=== PATIENT | female | born 1945 | race Caucasian/White ===

== ENCOUNTER → 2018-03-21 12:47 | Outpatient (CLI) | payer MEDICARE, OTHER, SELFPAY ==
--- NOTE | 2018-03-21 12:51 | VDLE_ITS ---
Reason For Study: PEDAL EDEMA L>R RIGHT LEFT GSV is normal. GSV is normal CFV is compressible, spontaneous, phasic, CFV and SFJ are dilated and partially competent and demonstrates normal compressible. augmentation. FV, POP V & T/P trunk are dilated and FV is compressible, spontaneous, phasic, noncompressible. competent and demonstrates normal PTV appears compressible. augmentation. PERV not seen due to edema. POP V is compressible, spontaneous, phasic, competent and demonstrates normal augmentation. T/P Trunk is compressible. PTV is compressible. RT PerV is compressible. Procedure Exam performed in department. The study was technically difficult. A preliminary report was called and/or faxed to Called Dr. Farias's office @ 1:45 pm Ludy, PT to have STAT CTA. Interpretation Summary Acute deep vein thrombosis is noted in the left common femoral vein. Acute deep vein thrombosis is noted in the left femoral vein. Acute deep vein thrombosis is noted in the left popliteal vein. Acute deep vein thrombosis is noted in the left tibio-peroneal trunk. The left posterior tibial vein is patent and compressible. The left peroneal vein was not visualized. Deep veins of the right lower extremity are patent and compressible segmentally. There is no evidence of right lower extremity deep vein thrombosis. Valvular competence appears intact within the proximal deep venous system on the right . The greater saphenous veins appear bilaterally patent and compressible segmentally. Ordering Physician: Sinan Farias Referring Physician: Fausto Noble Performed By: Edel Miranda RDCS, RVT
--- NOTE | 2018-03-21 14:35 | CT_ITS ---
STUDY: CTA CHEST REASON FOR EXAM: Female, 73 years old. Dyspnea. RADIATION DOSAGE (If Supplied By Facility): CTDIvol = ( 16.52 ) mGy, DLP = ( 616.09 ) mGycm TECHNIQUE: The examination was performed with the intravenous administration of 100 ml of Isovue 370 contrast material. Post-processing of the angiographic images was performed, with multiplanar reformation and 3D reconstruction. Individualized dose optimization techniques were used for this CT. COMPARISON: None. FINDINGS: Normal enhancement of the main pulmonary artery and right and left pulmonary arteries. Normal enhancement of the bilateral peripheral pulmonary arteries. There is no demonstrated pulmonary embolism. There is atherosclerotic calcification of the aortic arch with tortuosity. There is no demonstrated aortic dissection. There are mitral valvular calcifications. Normal mediastinum. There are calcified left hilar lymph nodes. Normal visualized trachea and bronchi. The lungs are well expanded. No focal infiltrate. Left lower lung granuloma. Normal pleura. Normal chest wall structures. There are degenerative changes of thoracic spine. Normal visualized upper abdomen. CT/CTA Chest W/WO Contrast IMPRESSION: Normal CTA chest examination, without a demonstrated pulmonary embolism or arterial dissection. Electronically Signed: Chetan Negro MD at 15:25 EDT , Service support ,
[2018-03-21 14:56] LABS: CREATININE FINGERSTICK 0.9 mg/dL (0.55-1.02)
== END ==
PROVIDERS: Family Provider Physician Assistant; PCP Physician Assistant; Referring Provider Internal Medicine Pulmonary Disease; Visit Provider Internal Medicine Pulmonary Disease
DX: R06.00 Dyspnea, unspecified (principal); R60.0 Localized edema; I82.402 Acute embolism and thrombosis of unspecified deep veins of left lower extremity
CPT/HCPCS: 71275; 93970; Q9967

== ENCOUNTER → 2018-04-22 09:36 | Outpatient (CLI) | payer MEDICARE, OTHER, SELFPAY ==
[2018-04-22 11:04] LABS: Absolute Lymphocyte Count 0.94 X10^3/ul (0.83-4.51); Absolute Neutrophil Count 3.3 X10^3/uL (2.0-7.7); Basophil# 0.03 X10^3/uL; Basophil% 0.6 % (0-1); Eosinophils% 2.1 % (0-5); Hematocrit 41.9 % (37-47); Hemoglobin 13.2 g/dl (12.0-15.0); Lymphocyte # 0.94 X10^3/ul (4.0); Lymphocyte % 19.7 % (19-41); Mean Corp Hgb Conc 31.5 g/gl (32-36); Mean Corpuscular Hgb 28.8 pg (27.0-32.0); Mean Corpuscular Volume 91.3 fL (81-99); Monocyte% 8.4 % (0-10); Neutrophil # 3.29 X10^3/uL (2.7-7.7); POSITIVE COUNT NO; POSITIVE DIFFERENTIAL NO; POSITIVE MORPHOLOGY NO; Platelet Count 217 K/mm3 (150-450); RBC Distribution Width CV 14.3 % (11.6-14.6); RBC Distribution Width SD 47.9 fl (35.1-43.9); Red Blood Count 4.59 M/mm3 (4.2-5.4); White Blood Count 4.8 K/mm3 (4.4-11.0)
[2018-04-22 11:34] LABS: AST(SGOT) 18 U/L (15-37); Alanine Aminotransfer ALT/SGPT 21 U/L (13-56); Albumin, Serum 3.5 g/dL (3.2-5.0); Alkaline Phosphatase 74 U/L (45-117); Anion Gap 6 (5-15); BUN 26 mg/dL (7-18); BUN/Creat Ratio 21.3 RATIO (10-20); Bilirubin, Direct 0.13 mg/dL (0.00-0.30); Calcium,Total 9.3 mg/dL (8.5-10.1); Chloride 105 mmol/L (98-107); Cholesterol 200 mg/dL (200); Creatinine, Serum 1.22 mg/dL (0.55-1.02); EST Glomerular Filtration Rate 46 mL/min (>60); Est Glom Filt Rate - Afr Amer 56 mL/min (>60); Globulin 4.2 g/dL (2.2-4.2); Glucose 85 mg/dL (74-106); High Density Lipoprotein 71 mg/dL; Magnesium 2.3 mg/dL (1.6-2.6); Potassium 4.4 mmol/L (3.5-5.1); Protein, Total 7.7 g/dL (6.4-8.2); Sodium Level 141 mmol/L (136-145); T4 Total, Thyroxin 9.8 ug/dL (4.8-13.9); Thyroid Stim Hormone (TSH) 4.21 uIU/mL (0.358-3.74); Triglycerides 99 mg/dL; Very Low Density Lipoprotein 20 mg/dL (5-40)
== END ==
PROVIDERS: Family Provider Physician Assistant; PCP Physician Assistant; Referring Provider Internal Medicine Cardiovascular Disease; Visit Provider Internal Medicine Cardiovascular Disease
DX: R06.09 Other forms of dyspnea (principal); I51.9 Heart disease, unspecified; I10 Essential (primary) hypertension; M79.89 Other specified soft tissue disorders; I82.402 Acute embolism and thrombosis of unspecified deep veins of left lower extremity
CPT/HCPCS: 36415; 80048; 80061; 80076; 83735; 84436; 84443; 85025

== ENCOUNTER → 2018-04-28 12:25 | Outpatient (CLI) | payer MEDICARE, OTHER, SELFPAY ==
--- NOTE | 2018-04-28 12:27 | STEWCON_ITS ---
Reason For Study: CABRERA Stress Results Protocol: Modified Shoaib Protocol Maximum Predicted HR: 148 bpm Target HR: 126 bpm % Maximum Predicted HR: 93 % DurationHeart Rate Stage (mm:ss) (bpm) BP Comment Baseline 74 158/82Diluted Definity 2 ML Given; No Chest Pain Modified Shoaib Protocol Stage 0 3:00 127 184/86No Chest Pain; Mild Dyspnea Modified Shoaib Protocol Stage 1/2 3:00 137 204/80No Chest Pain; Moderate Dyspnea Recovery 94 146/76No Chest Pain Stress Duration: 6:00 mm:ss Maximum Stress HR: 137 bpm METS: 3 Baseline Echocardiogram Findings The estimated ejection fraction is 665 %. Stress Echo Wall motion Data Resting WM Intermediate WM Stress WM Resting Wall Motion Wall Motion Stress No regional wall motion No regional wall motion abnormalities noted. abnormalities noted. EKG Data Normal intervals are noted. During stress, there were no ST or T wave changes noted to suggest ischemia. No clinical angina was noted. Interpretation Summary The study was technically difficult. Contrast injection was performed. The estimated ejection fraction is 665 %. Abnormal adequate modified Shoaib treadmill echocardiogram. Positive for ischemia by echocardiographic criteria. Patient developed what appeared to be mid anterior hypo-kinesis seen in 3 views. No anginal symptoms noted. Patient developed right dependent intraventricular conduction delay during exercise. No arrhythmias noted. Appropriate blood pressure response to exercise. Below average exercise capacity for age. Final LVEF of 60%. Patient referred for diagnostic coronary angiogram. No complications. Ordering Physician: Dutch Kern Referring Physician: Dutch Kern Performed By: Sharri Chabmers, JAD, RVT
[2018-04-28 14:36] LABS: Hematocrit 43.6 % (37-47); Hemoglobin 14.1 g/dl (12.0-15.0); Mean Corp Hgb Conc 32.3 g/gl (32-36); Mean Corpuscular Hgb 29.2 pg (27.0-32.0); Mean Corpuscular Volume 90.3 fL (81-99); Mean Platelet Vol. 10.3 fl (6.2-12.0); Platelet Count 224 K/mm3 (150-450); RBC Distribution Width SD 46.2 fl (35.1-43.9); Red Blood Count 4.83 M/mm3 (4.2-5.4); White Blood Count 4.8 K/mm3 (4.4-11.0)
[2018-04-28 14:38] LABS: Scan Indicated on CBC? Y/N NO
[2018-04-28 14:42] LABS: International Normalized Ratio 1.2; Partial Thromboplast Time 29.2 Seconds (24.1-36.2)
[2018-04-28 14:59] LABS: Anion Gap 7 (5-15); BUN 28 mg/dL (7-18); BUN/Creat Ratio 27.5 RATIO (10-20); Calcium,Total 9.7 mg/dL (8.5-10.1); Chloride 102 mmol/L (98-107); Creatinine, Serum 1.02 mg/dL (0.55-1.02); EST Glomerular Filtration Rate 57 mL/min (>60); Est Glom Filt Rate - Afr Amer 69 mL/min (>60); Glucose 94 mg/dL (74-106); Potassium 3.8 mmol/L (3.5-5.1); Sodium Level 139 mmol/L (136-145)
== END ==
PROVIDERS: Family Provider Physician Assistant; PCP Physician Assistant; Referring Provider Internal Medicine Cardiovascular Disease; Visit Provider Internal Medicine Cardiovascular Disease
DX: R94.39 Abnormal result of other cardiovascular function study (principal); R06.09 Other forms of dyspnea; I10 Essential (primary) hypertension; M79.89 Other specified soft tissue disorders
CPT/HCPCS: 36415; 80048; 85027; 85610; 85730; 93017; 93350; Q9957; A4216; C8928

== ENCOUNTER 2018-05-13 06:52 | Day surgery (SDC) | payer MEDICARE, OTHER, SELFPAY ==
[2018-05-04 10:04] VITALS: BMI 47.9
[2018-05-12 07:33] VITALS: BMI 48.3
--- NOTE | 2018-05-13 09:29 | CL.D_ITS ---
Patient Name: CHELSEY MCGEE Study Date: 05/13/2018 Performing: Dutch Kern MD Ht: 61.02 inches 155 cm : 1945 Wt: 255.74 lbs 116 kg Age: 73 Gender: female BSA: 2.1 PROCEDURE(S) PERFORMED [id number]/LHC/COR/LV CLINICAL PROFILE AND INDICATIONS Indications: Suspected CAD Heart Failure: None Stress/Imaging Stress Echocardiogram: Yes Result: IndeterminantStress Echocardiogram: Indetermina nt Angina Classification Anginal Classification w/in 2 Weeks: CCS III CAD Presentations: Unstable angina. Comorbidities/Risk Factors: Hypertension Dyslipidemia Chronic Lung Disease CONCLUSIONS Normal coronary arteries Normal LV size, wall motion,and systolic function Cardiac output - Preserved The patient has normal pulmonary hemodynamics. 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 Refer for Outpatient Cardiac Rehab Restart lovenox on 05/15/18 until 05/18/18, then restart eliquis on 05/18/18. D/c brilinta. Manual sheath removal. DESCRIPTION OF PROCEDURE The patient arrived to the procedure lab. The risks and benefits of the procedure as well as a full d escription of our services here and current unavailability of surgical backup were fully explained to the patient and/or their significant other prior to the catheterization. The Timeout was completed, verifying the correct patient and procedure. The patient's procedural site was prepped and draped in the usual fashion. Local anesthetic was given subcutaneously to right groin region with Lidocaine 2%. Using a modified Seldinger technique, arterial access was obtained via the right femoral artery, a 4 Fr sheath was inserted Venous access was obtained via the right femoral vein, a 7Fr sheath was insert ed. A 7Fr thermal dilution catheter was inserted and right heart pressures were recorded, it was then advanced to PA position for cardiac outputs. Thermal dilution cardiac outputs were then recorded. O2 saturations were then obtained. Left Ventriculography was performed in CASILLAS projection using a 4 Fr. Pigtail catheter. LV to AO pullback pressures were then recorded. Simultaneous pressure s were then recorded. The Thermal dilution catheter was then removed. Right Coronary Artery selective angiography was then performed in multiple views using a 4 Fr. 3DRC catheter. Left Coronary Artery s elective angiography was performed in multiple views using a 4 Fr. AL 2 catheter.The arterial sheath was pulled and manual compression applied until hemostasis is achieved. CORONARY ANGIOGRAPHY DOMINANCE: Right Dominant LEFT HEART ASSESSMENT Left Ventricular Ejection Fraction: by LV Gram 75 % Normal LV wall motion Normal Left Ventricular systolic function LVEDP: 13 mmHg Left Ventricular Hypertrophy RIGHT HEART ASSESSMENT Thermal CO: 5.9 Thermal CI: 2.81 PW: 03/24 8 PA: 27/3 15 RV: 33/0 9 RA: 01/17 5 PVR: 95 SVR: 1193 Right Heart pressures - normal LEFT MAIN: Angiographically normal, LM comes off of right coronary cusp and may traverse between aort a and pulmonary artery. LEFT ANTERIOR DECENDING ARTERY: Angiographically normal CIRCUMFLEX ARTERY: Angiographically normal RIGHT CORONARY ARTERY: Angiographically normal COMPLICATIONS No Complications PROCEDURE MEDICATIONS Versed 1 mg IV Baby Aspirin (81mg) 81 Tabs PO 05/13/2018 08:25:47 Brilinta 180 mg PO @ 05/13/2018 08:31:13 SUMMARY OF HEMODYNAMIC DATA Time AIR REST ECG 07:15:39 RA 01/17 (5) SV 08:46:51 RV 33/0, 9 08:47:01 PW 03/24 (8) PV 08:47:24 PA 27/3 (15) PA 08:47:32 LV 135/-18, 6 08:52:05 LV 134/-18, 6 08:52:12 LV 137/-18, 6 08:52:33 PW 03/27 (9) 08:52:33 LV 137/-20, 5 08:52:39 PW 02/21 (7) 08:52:39 LV 141/-18, 8 08:54:00 RV 32/1, 10 08:54:00 LV 138/-20, 6 08:54:06 RV 30/-1, 7 08:54:06 LV 141/-13, 14 08:55:25 LV 142/-15, 11 08:55:31 LVp 139/-15, 14 08:55:36 AOp 139/56 (88) 08:55:41 AO 120/64 (93) SA 08:57:30 Type SV CO (l/m) CI (l/m/ HR Time AIR REST Thermal 88.10 5.90 2.81 67 07:15:39 Label % O2 Pres/Loc Time AIR REST AO 96 PV 09:00:34 Signed By Dutch Kern MD On 05/13/2018 09:28:16 Dutch Kern MD
[2018-05-13 11:36] LABS: Base Excess 2 mmol/L (-2 to +2); Bicarbonate 27.2 mmol/L (22-26); Blood Gas Specimen Type ART; PO2 84 mmHG (75-100); SO2 96 % (95-99); Total Carbon Dioxide 28 mmol/L; pCO2 43.4 mmHg (35-45); pH 7.41 (7.35-7.45)
[2018-05-13 11:36] LABS: Blood Gas Specimen Type VEN; VBG BASE EXCESS 6 mmol/L (-1.0-3.5); VBG Bicarbonate 30 mmol/L (22-26); VBG Oxygen Content 31 mmol/L (23-33); VBG PO2 40 mmHg (25-40); VBG SO2 78 % (50-70); VBG pCO2 41.4 mmHg (41-51); VBG pH 7.47 (7.32-7.42)
[2018-05-13 11:36] LABS: Blood Gas Specimen Type VEN; VBG BASE EXCESS 6 mmol/L (-1.0-3.5); VBG Bicarbonate 30 mmol/L (22-26); VBG Oxygen Content 32 mmol/L (23-33); VBG PO2 35 mmHg (25-40); VBG SO2 69 % (50-70); VBG pCO2 45.2 mmHg (41-51); VBG pH 7.43 (7.32-7.42)
--- OUTSIDE RECORDS SUMMARY | 2018-07-08 01:04 | XMS RPT_ITS ---
:1945 Author Organization OHIP Support Name Relationship Address Phone FIGLEY, SANGEETHA Unavailable [address] + [place] [address] R Unavailable Unavailable Unavailable FIGLEY, SANGEETHA Unavailable [address] + [place] [address] R Unavailable Unavailable Unavailable FIGLEY, SANGEETHA Unavailable [address] + [place] [address] R Unavailable Unavailable Unavailable FIGLEY, SANGEETHA Unavailable [address] + [place] [address] R Unavailable Unavailable Unavailable FIGLEY, SANGEETHA Unavailable [address] + [place] [address] R Unavailable Unavailable Unavailable FIGLEY, SANGEETHA Unavailable [address] + [place] [address] R Unavailable Unavailable Unavailable FIGLEY, SANGEETHA Unavailable [address] + [place] [address] R Unavailable Unavailable Unavailable FIGLEY, SANGEETHA Unavailable [address] + [place] [address] R Unavailable Unavailable Unavailable FIGLEY, SANGEETHA Unavailable [address] + [place] [address] R Unavailable Unavailable Unavailable FIGLEY, SANGEETHA Unavailable [address] + [place] [address] R Unavailable Unavailable Unavailable Care Team Providers Name Role Phone FAUSTO NOBLE Referring Unavailable RASHAWN STEELE Referring Unavailable FAUSTO NOBLE Referring Unavailable Dutch Kern Attending Unavailable Dutch Kern Referring Unavailable Fausto Noble Primary Care Unavailable Dutch Kern Consulting Unavailable Sinan Fraias Attending Unavailable Sinan Farias Referring Unavailable Fausto Noble Primary Care Unavailable Dutch Kern Attending Unavailable Fausto Noble Referring Unavailable Ducth Kern Attending Unavailable Dutch Kern Referring Unavailable Galehouse, Fausto Primary Care Unavailable Dutch Kern Attending Unavailable Dutch eKrn Referring Unavailable Galehouse, Fausto Primary Care Unavailable Dutch Kern Attending Unavailable [place]alehouse, Fausto Referring Unavailable Crhista Alfaro Attending Unavailable [place]alehouse, Fausto Referring Unavailable Dutch Kern Attending Unavailable Dutch Kern Referring Unavailable Galehouse, Fausto Primary Care Unavailable Angelina, Christa Allan Attending Unavailable [place]alehouse, Fausto Referring Unavailable Dutch Kern Attending Unavailable Dutch Kern Referring Unavailable Galehouse, Fausto Primary Care Unavailable PROBLEMS PROBLEMS DATE TYPE CONDITION / CODE ATTENDING STATUS SOURCE 05/25/2018 Unknown 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 Community / Q24.5(ICD-10) Hospital Repository 04/28/2018 Unknown R06.09 - Other forms Dutch Kern Active [place] of dyspnea / Community R06.09(ICD-10) Hospital Repository 04/28/2018 Unknown R94.39 - Abnormal Kern Dutch Active [place] result of other [facility] cardiovascular Hospital function study / Repository R94.39(ICD-10) 04/19/2018 Unknown R60.0 - Localized Dutch Kern Active [place] edema / Community R60.0(ICD-10) Hospital Repository 04/19/2018 Unknown I10 - Essential KernDutch Active [place] (primary) Community hypertension / Hospital I10(ICD-10) Repository 04/19/2018 Unknown I51.9 - Heart Dutch Kern Active [place] disease, unspecified Community / I51.9(ICD-10) Hospital Repository 04/19/2018 Unknown M79.89 - Other KenrDutch Active [place] specified soft Community tissue disorders / Hospital M79.89(ICD-10) Repository 04/19/2018 Unknown I82.402 - Acute Kern Dutch Active [place] embolism and Community thrombosis of Hospital unspecified deep Repository veins of left lower extremity / I82.402(ICD-10) 02/15/2018 Active Edema, unspecified / NA Active [facility] R60.9(ICD-10) Clinic Other [place] Repository 02/15/2018 Active Essential (primary) NA Active [facility] hypertension / Clinic Other I10(ICD-10) [place] Repository 02/15/2018 Active Hypothyroidism, NA Active [facility] unspecified / Clinic Other E03.9(ICD-10) [place] Repository 01/20/2018 Active Unknown / NA Active [place] UNK(Unknown) [facility] Main [place] Repository PROCEDURES PROCEDURES No Procedure Records FoundRESULTS RESULTS LIMITED CHEST CT Observed: 05/20/2018 Status: F Source: [place] W/CCTA 2:02 PM REPOSITORY [facility] Imaging Services [address] [place] [address] w/CCTA MR#: [id number] Acct: [id number] Name: CHELSEY MCGEE Rep #: [id number] : 1945 F 73 From: Codey Caro MD PCP: Fausto Noble Status: REG CLI Study: Limited Chest CT w/CCTA Date of Exam: 05/20/18 Exam# [id number] Ordering Dr: Dutch Kern MD STUDY: CT CHEST WITHOUT CONTRAST REASON FOR EXAM: Female, 73 years old. 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 RADIATION DOSAGE (If Supplied By Facility): CTDIvol = ( 16.91 ) mGy, DLP = ( 1112.32 ) mGycm TECHNIQUE: Transaxial imaging was performed without the administration of intravenous contrast material. This is a cardiac over read examination. Individualized dose optimization techniques were used for this CT. COMPARISON: None. FINDINGS: Calcified granuloma in the left lower lobe. There is no demonstrated pleural abnormality. Mild calcification of the mitral valve annulus. Normal mediastinum. Calcification of the left hilar lymph nodes. Normal unenhanced pulmonary arteries. There is atherosclerotic calcification of the aortic arch with tortuosity and elongation of the aortic arch and descending thoracic aorta. Normal osseous structures. There is no demonstrated abnormality of the visualized upper abdomen. CT/Limited Chest CT w/CCTA IMPRESSION: Calcified granuloma in the left lower lobe as well as calcification of the left hilar lymph nodes. Electronically Signed: Codey Caro MD at 8:56 EST Tel [phone], Service support , CC: Fausto Noble; Dutch Kern MD Insurance And Benefits Clerk: Signed CCTA W/CONT CORONARY Observed: 05/20/2018 Status: F Source: [place] ARTERIES 1:50 PM [facility] REPOSITORY [facility] Imaging Services [address] [place] [address] CCTA W/CONT Coronary Arteries MR#: [id number] Acct: [id number] Name: CHELSEY MCGEE Rep #: [id number] : 1945 F 73 From: Codey Caro MD PCP: Fausto Noble Status: REG CLI Study: CCTA W/CONT Coronary Arteries Date of Exam: 05/20/18 Exam# [id number] Ordering Dr: Dutch Kern MD STUDY: CT CHEST WITHOUT CONTRAST REASON FOR EXAM: Female, 73 years old. 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 RADIATION DOSAGE (If Supplied By Facility): CTDIvol = ( 16.91 ) mGy, DLP = ( 1112.32 ) mGycm TECHNIQUE: Transaxial imaging was performed without the administration of intravenous contrast material. This is a cardiac over read examination. Individualized dose optimization techniques were used for this CT. COMPARISON: None. FINDINGS: Calcified granuloma in the left lower lobe. There is no demonstrated pleural abnormality. Mild calcification of the mitral valve annulus. Normal mediastinum. Calcification of the left hilar lymph nodes. Normal unenhanced pulmonary arteries. There is atherosclerotic calcification of the aortic arch with tortuosity and elongation of the aortic arch and descending thoracic aorta. Normal osseous structures. There is no demonstrated abnormality of the visualized upper abdomen. CT/CCTA W/CONT Coronary Arteries IMPRESSION: Calcified granuloma in the left lower lobe as well as calcification of the left hilar lymph nodes. Electronically Signed: Codey Caro MD at 8:56 EST Tel [phone], Service support , CC: Fausto Noble; Dutch Kern MD Insurance And Benefits Clerk: Signed CARDIOLOGY VISIT Observed: 05/16/2018 Status: F Source: [place] REPORT 1:17 PM REPOSITORY [facility] [address] [place] [address] OFFICE VISIT Date of Service: 05/16/18 MR#: [id number] Acct: [id number] Name: CHELSEY MCGEE Rep #: [id number] : 1945 Provider: Christa Alfaro Age/Sex: 73/F Location: [facility] Status: Signed HPI HPI Chief Complaint: Dyspnea on exertion Details: CHELSEY MCGEE, is a 73 F who presents to the office today for concerns regarding medications and her hematoma from her heart cath. She recently established with us for increased shortness of breath that started in January 2018. She also has a history of uncontrolled hypertension. For her shortness of breath she did undergo a stress echocardiogram which is abnormal. Heart cath demonstrated Normal coronary arteries, normal LV size, wall motion,and systolic function. The patient has normal pulmonary hemodynamics. Right heart pressures - Normal. 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 She is scheduled for a CTA this Wednesday. Patient's blood pressure is slightly better than it was previously. She does however complain now of feeling her hearing her heartbeat in her ears. She notes it more in her left ear than her right. She states that this is more so when she is laying down. She also notes that she has a cough. This is not constant. She questions if this is related to her Coreg. She does not have any chest discomfort or heaviness. She does continue to have shortness of breath with exertion. She does continue to have lower extremity edema. She does not have any palpitations that she is aware of. She does not have any lightheadedness or dizziness Intake Vital Signs05/16/18 Body Mass Index (BMI) 47.9 05/16/18 Height 5 ft 1 in 05/16/18 Weight: 261 lb 05/16/18 Body Mass Index (BMI) 49.3 05/16/18 Blood Pressure 138/58 H Intake Visit Reasons: LARGE HEMATOMA [employer] Supervisor Required: No Accompanied by: None Is patient in pain?: No Allergies Sulfa (Sulfonamide Antibiotics) Allergy (Verified 05/16/18 10:38) Rash tramadol HCl [From Ultram] Allergy (Verified 05/16/18 10:38) Hives olmesartan Adverse Reaction (Severe, Verified 05/16/18 10:38) sob, lightheaded budesonide [From Symbicort] Adverse Reaction (Intermediate, Verified 05/16/18 10:38) affected eyesight (pt has glaucoma) formoterol [From Symbicort] Adverse Reaction (Intermediate, Verified 05/16/18 10:38) affected eyesight (pt has glaucoma) Medications Calcium 500 mg Chewable Tablet 1,000 mg PO DAILY 01/07/16 [History Confirmed 05/16/18] Fish Oil/Borage/Flax/Om3,6,9#1 [Bly 3-6-9 1,200 mg Softgel] 2,400 mg PO DAILY 01/07/16 [History Confirmed 05/16/18] Timolol 0.5% [Timoptic] 1 drp EACH EYE BID 01/07/16 [History Confirmed 05/16/18] allopurinol 100 mg tablet 100 mg PO BID 04/13/18 [History Confirmed 05/16/18] furosemide 40 mg tablet 40 mg PO DAILY 04/13/18 [History Confirmed 05/16/18] nystatin 100,000 unit/gram topical cream 1 applic TOPICAL .COMPLEX 04/13/18 [History Confirmed 05/16/18] carvedilol 3.125 mg tablet 3.125 mg PO BID #60 tab 04/19/18 [Rx Confirmed 05/16/18] vitamin A-vitamin C-vit E-min capsule 1 cap PO DAILY cap 04/19/18 [History Confirmed 05/16/18] apixaban 5 mg tablet 5 mg PO .COMPLEX 04/28/18 [History Confirmed 05/16/18] Aspirin 1 tab PO QODAY 05/13/18 [History Confirmed 05/16/18] levothyroxine 112 mcg tablet 112 mcg PO DAILY 05/16/18 [History Confirmed 05/16/18] losartan 50 mg tablet 50 mg PO DAILY 05/16/18 [History Confirmed 05/16/18] Ejection fraction %: 60 to 64 PENDING SALE TO [facility] Medical History Left leg DVT (Acute 03/2018) Dyspnea on minimal exertion (Acute) Gout (Chronic) Glaucoma (Chronic) Iatrogenic hypothyroidism (Chronic) Diastolic dysfunction (Acute) Hypertension (Chronic) History of thyroid cancer (Chronic) Arthritis (Chronic) Morbid obesity (Chronic) Edema of both legs (Chronic) Lymphedema of leg (Chronic) Degenerative joint disease (Chronic) Surgical History Status post right and left heart catheterization (Resolved) History of bilateral knee replacement (Chronic) History of bilateral oophorectomies (Chronic) History of cholecystectomy (Chronic) History of hysterectomy (Chronic) History of total thyroidectomy (Chronic) Family History Mother CAD (coronary artery disease) Hypertension Daughter Cancer Sister Hypertension Sister Hypertension Social History Smoking Status: Never smoker second hand exposure: Yes alcohol intake: never caffeine: Yes (hot chocolate) Type: other Number of servings: 1 ROS Const Const: Negative for fatigue, weakness, body ache, fever(s), headache(s), chills, frequent falls, night sweats, daytime sleepiness, difficulty sleeping, excessive sweating, weight gain, weight loss, increased appetite, poor appetite, anorexia or other Eyes Eyes: Negative for blind spots, loss of peripheral vision, transient loss of vision, blurry vision, change in vision, double vision, floaters, tunnel vision or other ENT ENT: Negative for headache(s) or balance problems Cardio Chest Pain: No Palpitations: No Edema: Bilateral Resp Respiratory: Positive for SOB with activity and SOB at rest (with humidity); negative for SOB orthopnea\SOB lying down, Coughing up blood/hemoptysis, chest congestion, pain on inspiration, snoring, stridor, wheezing, crackles, paroxysmal nocturnal dyspnea or other GI GI: Negative nausea, vomiting, heartburn, constipation, belching, bloating, cramping, vomiting blood/hematemesis, bright, red blood in stools, black,tarry stools, loose stools, Difficulty Swallowing or other : Negative for hematuria, frequent nighttime urination/ nocturia, erectile dysfunction or abnormal vaginal bleeding Musc Musc: Positive for muscle aches/ myalgia, muscle weakness and joint pain; negative for balance problems Skin Skin: Negative redness, non-healing lesions, rash, unusual bruising, skin ulcer, wounds, jaundice or other Neuro Neuro: Negative for weakness, headache(s), frequent falls, blurry vision or double vision [place] Hematologic/Lymphatic: Negative for easy bleeding, easy bruising, enlarged lymph nodes or other Endo Endo: Negative for fatigue or excessive sweating Psych Psych: Negative for anxiety, depression, thoughts of harming anyone, thoughts of harming yourself, visual hallucinations, panic attacks or audible hallucinations Allergy Allergy/Immunology: Negative for rash Cardiology Exam Const Appearance: cooperative, healthy appearing and no acute distress Nutritional Appearance: well nourished Orientation: alert, oriented x3 and oriented to person Head Head: normal to inspection, atraumatic and normocephalic Nose: external nose normal Face and Sinus: face symmetric Mouth: oral mucosae normal Eyes General: appearance normal, both eyes and all related structures Eyelids: eyelids normal Conjunctivae: conjunctivae normal Pupils: PERRL and normal by confrontation EOM: EOM intact bilaterally Neck Neck: normal visual inspection and full ROM Carotids: normal carotid upstroke Chest Chest inspection: normal inspection of the chest Auscultation: Bilateral: Clear to Auscultation Cardio Palpation: normal PMI Rate: regular rate Rhythm: regular rhythm Heart sounds: S1 normal and S2 normal GI GI: normal to inspection, no hepatosplenomegaly and bowel sounds present Neuro General: alert, oriented x3, awake, CN's II-XI intact bilaterally and moves all extremities Skin Skin: no rashes or lesions noted Extremities Pulses: Normal: Right Femoral Pulse, Left Femoral Pulse (large ecchymosis noted, no bruit), Right Dorsalis Pedis Pulse, Left Dorsalis Pedis Pulse, Right Posterior Tibial Pulse, Left Posterior Tibial Pulse, Right Radial Pulse, Left Radial Pulse Lower Extremity Edema: +2: Bilateral Psych Psychological: normal affect Supplemental Info Stress echo in 04/2018 demonstrated: The study was technically difficult. Contrast injection was performed. The estimated ejection fraction is 65 %. Abnormal adequate modified Shoaib treadmill echocardiogram. Positive for ischemia by echocardiographic criteria. Patient developed what appeared to be mid anterior hypo-kinesis seen in 3 views. No anginal symptoms noted. Patient developed right dependent intraventricular conduction delay during exercise. No arrhythmias noted. Appropriate blood pressure response to exercise. Below average exercise capacity for age. Final LVEF of 60%. Patient referred for diagnostic coronary angiogram. No complications. Heart cath in 04/2018 demonstrated: Normal coronary arteries Normal LV size, wall motion,and systolic function Cardiac output - Preserved The patient has normal pulmonary hemodynamics. 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 Assessment AND Plan 1. Essential hypertension I10 Plan In regards to patient's blood pressure readings. They are better controlled on her current medications. Hesitant to decrease her losartan at this time. Will have patient continue to monitor. Patient does have a significant amount of wax in her left ear. I explained that this may be contributing to her hearing her heartbeat in that ear. Encouraged her to follow-up with her primary care doctor for this. We will readdress this at her next office visit. 2. Abnormal result of cardiovascular function study R94.30 Plan Patient is scheduled to undergo a CTA on Wednesday. For now she will continue with her current medications. If she is still concerned about her medications will adjust after her CTA. Plan Detail Additional Comments Thank you for allowing us to participate in the patients plan of care, if you have any questions please do not hesitate to call. This note was generated using a voice recognition system and there may be incorrect words, spelling or punctuation that were not noted when reviewing the office note prior to saving. She was advised that she should not lift anything greater than 10 pounds until after tomorrow. Her hematoma from her heart cath is healing well. Follow Up 05/16/18 (keep as is) Coding Level of Care Code Off vis,est,level 3 Diagnoses Essential hypertension I10 Hypertension type: essential hypertension Abnormal result of cardiovascular function study R94.30 Coding Level of Care Code Off vis,est,level 3 Diagnoses Essential hypertension I10 Hypertension type: essential hypertension Abnormal result of cardiovascular function study R94.30 05/16/18 1317 <Electronically signed by Christa SONG> Date Christa SONG Cosigner Signature: Date (if applicable) CC: Fausto Noble BLOOD GASES BY [facility] Collected: 05/13/2018 Status: F Source: [place] 8:59 AM REPOSITORY TYPE CODE TESTS RESULT OUT OF RANGE REFERENCE UNITS LAB L9000.9990 Normal BLD GAS ART TYPE LAB L9001.1110 7.35-7.45 Normal pH - 7.41 I-STAT LAB L9001.1210 35-45 mmHg Normal pCO2 - 43.4 ISTAT LAB L9001.1310 75-100 mmHG Normal PO2 84 I-STAT LAB L9001.2300 22-26 mmol/L High HCO3 27.2 ISTAT LAB L9001.2400 -2 to +2 mmol/L Normal BE ISTAT 2 LAB L9001.2415 mmol/L Normal TOTAL CO2 28 ISTAT LAB L9001.2425 95-99 % Normal SO2 ISTAT 96 Performed By: #### L9000.0800 #### [facility] Point of Care [address] [place], [place] [id number] VENOUS BLOOD GAS Collected: 05/13/2018 Status: F Source: [place] 8:56 AM REPOSITORY TYPE CODE TESTS RESULT OUT OF RANGE REFERENCE UNITS LAB L9000.9990 Normal BLD GAS IZ TYPE LAB L9002.1110 7.32-7.42 High VBGpH - 7.47 I-STAT LAB L9002.1212 41-51 mmHg Normal VBG pCO2 41.4 - ISTA LAB L9002.1310 25-40 mmHg Normal VBG PO2 40 I-STAT LAB L9002.2300 22-26 mmol/L High VBG HCO3 30 ISTAT LAB L9002.2400 -1.0-3.5 mmol/L High VBG BE 6 ISTAT LAB L9002.2410 50-70 % High VBG SO2 78 ISTAT LAB L9002.2415 23-33 mmol/L Normal VBG O2 CT 31 ISTAT Performed By: #### L9000.0810 #### [facility] Point of Care [address] [place], [place] [id number] VENOUS BLOOD GAS Collected: 05/13/2018 Status: F Source: [place] 8:53 AM REPOSITORY TYPE CODE TESTS RESULT OUT OF RANGE REFERENCE UNITS LAB L9000.9990 Normal BLD GAS ZI TYPE LAB L9002.1110 7.32-7.42 High VBGpH - 7.43 I-STAT LAB L9002.1212 41-51 mmHg Normal VBG pCO2 45.2 - ISTA LAB L9002.1310 25-40 mmHg Normal VBG PO2 35 I-STAT LAB L9002.2300 22-26 mmol/L High VBG HCO3 30 ISTAT LAB L9002.2400 -1.0-3.5 mmol/L High VBG BE 6 ISTAT LAB L9002.2410 50-70 % Normal VBG SO2 69 ISTAT LAB L9002.2415 23-33 mmol/L Normal VBG O2 CT 32 ISTAT Performed By: #### L9000.0810 #### [facility] Point of Care [address] [place] [address] CARDIOLOGY VISIT Observed: 05/04/2018 Status: F Source: [place] REPORT 10:43 AM REPOSITORY [facility] [address] [place] [address] OFFICE VISIT Date of Service: 05/04/18 MR#: [id number] Acct: [id number] Name: CHELSEY MCGEE Rep #: [id number] : 1945 Provider: Christa Alfaro Age/Sex: 73/F Location: [facility] Status: Signed HPI HPI Chief Complaint: Dyspnea on exertion Details: CHELSEY MCGEE, is a 73 F who presents to the office today for a blood pressure follow-up. She recently established with us for increased shortness of breath that started in January 2018. She also has a history of uncontrolled hypertension. For her shortness of breath she did undergo a stress echocardiogram which is abnormal. She is scheduled to undergo a right and left heart catheterization next week. Patient's blood pressure is still less than ideal. She is aware of this. She does monitor this closely. She does not have any chest discomfort. She does continue to have shortness of breath with exertion. She does not have any orthopnea. She does not have any palpitations. She does have chronic lower extremity edema. The lower extremity edema and her left leg is new as she was recently diagnosed with a DVT. She has not had any lightheadedness, dizziness or syncopal episodes. Intake Vital Signs05/04/18 Height 5 ft 1 in 05/04/18 Weight: 254 lb 05/04/18 Body Mass Index (BMI) 47.9 05/04/18 Blood Pressure 146/78 H 05/04/18 Blood Pressure Location Lt brachial Intake Visit Reasons: 2 WK BP CK PER DJN [employer] Supervisor Required: No Accompanied by: none Is patient in pain?: No Allergies Sulfa (Sulfonamide Antibiotics) Allergy (Verified 05/04/18 10:04) Rash tramadol HCl [From Ultram] Allergy (Verified 05/04/18 10:04) Hives olmesartan Adverse Reaction (Severe, Verified 05/04/18 10:04) sob, lightheaded budesonide [From Symbicort] Adverse Reaction (Intermediate, Verified 05/04/18 10:04) affected eyesight (pt has glaucoma) formoterol [From Symbicort] Adverse Reaction (Intermediate, Verified 05/04/18 10:04) affected eyesight (pt has glaucoma) Medications Calcium 500 mg Chewable Tablet 1,000 mg PO DAILY 01/07/16 [History Confirmed 05/04/18] Fish Oil/Borage/Flax/Om3,6,9#1 [Bly 3-6-9 1,200 mg Softgel] 2,400 mg PO DAILY 01/07/16 [History Confirmed 05/04/18] Timolol 0.5% [Timoptic] 1 drp EACH EYE BID 01/07/16 [History Confirmed 05/04/18] albuterol sulfate HFA 90 mcg/actuation aerosol inhaler 2 puff INHALATION Q6H PRN 04/13/18 [History Confirmed 05/04/18] allopurinol 100 mg tablet 100 mg PO BID 04/13/18 [History Confirmed 05/04/18] furosemide 40 mg tablet 40 mg PO DAILY 04/13/18 [History Confirmed 05/04/18] levothyroxine 100 mcg tablet 100 mcg PO DAILY 04/13/18 [History Confirmed 05/04/18] nystatin 100,000 unit/gram topical cream 1 applic TOPICAL .COMPLEX 04/13/18 [History Confirmed 05/04/18] carvedilol 3.125 mg tablet 3.125 mg PO BID #60 tab 04/19/18 [Rx Confirmed 05/04/18] vitamin A-vitamin C-vit E-min capsule cap PO cap 04/19/18 [History Confirmed 05/04/18] apixaban 5 mg tablet 5 mg PO .COMPLEX 04/28/18 [History Confirmed 05/04/18] enoxaparin 100 mg/mL subcutaneous syringe 100 mg SC .COMPLEX #10 ml 04/28/18 [Rx Confirmed 05/04/18] losartan 50 mg tablet 50 mg PO DAILY #30 tab 05/04/18 [Rx Confirmed 05/04/18] PENDING SALE TO [facility] Medical History Left leg DVT (Acute 03/2018) Dyspnea on minimal exertion (Acute) Gout (Chronic) Glaucoma (Chronic) Iatrogenic hypothyroidism (Chronic) Diastolic dysfunction (Acute) Hypertension (Chronic) History of thyroid cancer (Chronic) Arthritis (Chronic) Morbid obesity (Chronic) Edema of both legs (Chronic) Lymphedema of leg (Chronic) Degenerative joint disease (Chronic) Surgical History History of bilateral knee replacement (Chronic) History of bilateral oophorectomies (Chronic) History of cholecystectomy (Chronic) History of hysterectomy (Chronic) History of total thyroidectomy (Chronic) ROS Const Const: Negative for fatigue, weakness, body ache, fever(s), headache(s), chills, frequent falls, night sweats, daytime sleepiness, difficulty sleeping, excessive sweating, weight gain, weight loss, increased appetite, poor appetite, anorexia or other Eyes Eyes: Negative for blind spots, loss of peripheral vision, transient loss of vision, blurry vision, change in vision, double vision, floaters, tunnel vision or other ENT ENT: Negative for headache(s) or balance problems Cardio Chest Pain: No Palpitations: No Edema: Bilateral Resp Respiratory: Positive for SOB with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 anxiety, depression, thoughts of harming anyone, thoughts of harming yourself, visual hallucinations, panic attacks or audible hallucinations Allergy Allergy/Immunology: Negative for lip swelling, Negative for tongue swelling, Negative for rash, Negative for throat swelling, Negative for hives Cardiology Exam Const Appearance: cooperative, healthy appearing and no acute distress Nutritional Appearance: well nourished Orientation: alert, oriented x3 and oriented to person Head Head: normal to inspection, atraumatic and normocephalic Nose: external nose normal Face and Sinus: face symmetric Mouth: oral mucosae normal Eyes General: appearance normal, both eyes and all related structures Eyelids: eyelids normal Conjunctivae: conjunctivae normal Pupils: PERRL and normal by confrontation EOM: EOM intact bilaterally Neck Neck: normal visual inspection and full ROM Carotids: normal carotid upstroke Chest Chest inspection: normal inspection of the chest Auscultation: Bilateral: Clear to Auscultation Cardio Palpation: normal PMI Rate: regular rate Rhythm: regular rhythm Heart sounds: S1 normal and S2 normal GI GI: normal to inspection, no hepatosplenomegaly and bowel sounds present Neuro General: alert, oriented x3, awake, CN's II-XI intact bilaterally and moves all extremities Skin Skin: no rashes or lesions noted Extremities Pulses: Normal: Right Femoral Pulse, Left Femoral Pulse, Right Dorsalis Pedis Pulse, Left Dorsalis Pedis Pulse, Right Posterior Tibial Pulse, Left Posterior Tibial Pulse, Right Radial Pulse, Left Radial Pulse Lower Extremity Edema: None: Bilateral Psych Psychological: normal affect Assessment AND Plan 1. Dyspnea on minimal exertion R06.09 Plan 1. Dyspnea on exertion: The patient has her main complaint is dyspnea on exertion and worsening lower extremity edema and decreased energy level ever since December 2017. Her dyspnea on exertion may be an anginal equivalent and may also represent underappreciated pulmonary hypertension. I recommended the patient undergo a modified Shoaib treadmill echocardiogram to determine her exercise capacity, or size endurance, blood pressure response to exercise, as well as for ischemia. If this is grossly abnormal, I have a low threshold for a left and right heart catheterization. In addition she will start on baby aspirin 81 mg p.o. daily. Her CTA was negative for pulmonary embolism in March 2018. In addition I recommended discontinuation of atenolol given her bradycardia as well as initiating Coreg 3.125 mill grams p.o. twice daily. We will use the alpha blocking component for additional hypertension control, but if the patient continues to have fatigue and shortness of breath she may benefit from calcium channel benoit therapy. In addition I recommend she undergo a fasting profile, CBC, BMP, TSH and T4 as well as a magnesium level. We will continue Lasix 40 mg p.o. daily for her lower extremity edema with respect to her DVT. Should the patient require catheterization she will need to stop her Eliquis about 5 days prior to her procedure. Orders Orders: 2. Hypertension I10 Plan 2. Hypertension: Recommend switching her from atenolol to Coreg 3.125 mill grams p.o. twice daily. Repeat blood pressure check in 2 weeks time. 3. Return office in 6 months. This note was generated using a voice recognition system and there may be incorrect words, spelling or punctuation that were not noted when reviewing the office note prior to saving. Orders Orders: Plan Detail Other Orders Orders: Other Medications New: Discontinued: Follow Up +6M (Erlin) Coding Level of Care Code Off vis,new,level 4 Diagnoses Dyspnea on minimal exertion R06.09 Hypertension I10 Coding Level of Care Code Off vis,new,level 4 Diagnoses Dyspnea on minimal exertion R06.09 Hypertension I10 04/19/18 1144 <Electronically signed by Dutch Kern MD> Date Dutch Kern MD Cosigner Signature: Date (if applicable) CC: Fausto Noble; Sinan Farias MD 12 LEAD EKG PERFORMED Observed: 04/19/2018 Status: F Source: [facility] BY [facility] 11:08 AM REPOSITORY [facility] [address] [place] [address] 12 Lead EKG performed by [facility] 04/19/18 1107 MR#: [id number] Acct: [id number] Name: CHELSEY MCGEE Rep #: [id number] : 1945 73 From: Dutch Kern MD Attending Dr: Dutch Kern MD Status: DEP [facility] Ordering Dr: Dutch Kern MD Date: 04/19/18 Location: BMS.[facility] Sex: F C Admitted: BMS/12 Lead EKG performed by BMS ECG Report Interpretation Marked sinus Bradycardia Voltage criteria for LVH (R(I)+S(III) exceeds 2.50 mV) - Nonspecific QRS widening. Possible early repolarization -Old anterior infarct. -Nonspecific ST depression -Seen with left ventricular hypertrophy (strain) or digitalis effect. ABNORMAL Electronically signed on 05/27/2018 at 15:54 by Dutch Kern Software Version [id number] 05/27/18 1556 Date Dutch Kern MD CC: Fausto SONG [employer] Date Dictated: 04/19/181106 Date Transcribed: 04/19/181106 Insurance And Benefits Clerk: Signed VENOUS DUPLEX LOWER Observed: 03/21/2018 Status: F Source: [place] EXTREMITY 9:20 PM REPOSITORY [facility] Cardiovascular Services [address] [place] [address] Venous Duplex - Pérez Extrem 03/21/18 1255 MR#: [id number] Acct: [id number] Name: CHELSEY MCGEE Rep #: [id number] : 1945 73 From: Lauri Hinds MD Attending Dr: Sinan Farias MD Status: REG CLI Ordering Dr: Sinan Farias MD Date: 03/21/18 Location: CVS Sex: F C Admitted: Reason For Study: PEDAL EDEMA L>R RIGHT LEFT GSV is normal. GSV is normal CFV is compressible, spontaneous, phasic, CFV and SFJ are dilated and partially competent and demonstrates normal compressible. augmentation. FV, POP V AND T/P trunk are dilated and FV is compressible, spontaneous, phasic, noncompressible. competent and demonstrates normal PTV appears compressible. augmentation. PERV not seen due to edema. POP V is compressible, spontaneous, phasic, competent and demonstrates normal augmentation. T/P Trunk is compressible. PTV is compressible. RT PerV is compressible. Procedure Exam performed in department. The study was technically difficult. A preliminary report was called and/or faxed to Called Dr. Farias's office @ 1:45 pm Ludy, PT to have STAT CTA. Interpretation Summary Acute deep vein thrombosis is noted in the left common femoral vein. Acute deep vein thrombosis is noted in the left femoral vein. Acute deep vein thrombosis is noted in the left popliteal vein. Acute deep vein thrombosis is noted in the left tibio-peroneal trunk. The left posterior tibial vein is patent and compressible. The left peroneal vein was not visualized. Deep veins of the right lower extremity are patent and compressible segmentally. There is no evidence of right lower extremity deep vein thrombosis. Valvular competence appears intact within the proximal deep venous system on the right . The greater saphenous veins appear bilaterally patent and compressible segmentally. Ordering Physician: Sinan Farias Referring Physician: Fausto Noble Performed By: Edel Miranda, JAD, RVT 03/21/182119 Date Lauri Hinds MD CC: Fausto Noble; Sinan Farias MD Date Dictated: 03/21/18 1255 Date Transcribed: 03/21/182119 Insurance And Benefits Clerk: Signed CREATININE FINGERSTICK Collected: 03/21/2018 Status: F Source: [place] 2:51 PM REPOSITORY TYPE CODE TESTS RESULT OUT OF RANGE REFERENCE UNITS LAB L9100.0210 0.55-1.02 mg/dL Normal CREATININE WB 0.9 Performed By: #### L9100.0200 #### [facility] Laboratory Point of Care [address] [place] [address] CTA CHEST W/WO Observed: 03/21/2018 Status: F Source: [place] CONTRAST 2:35 PM REPOSITORY [facility] Imaging Services [address] [place] [address] CTA Chest W/WO Contrast MR#: [id number] Acct: [id number] Name: CHELSEY MCGEE Rep #: [id number] : 1945 F 73 From: Chetan Negro MD PCP: Fausto Noble Status: REG CLI Study: CTA Chest W/WO Contrast Date of Exam: 03/21/18 Exam# [id number] Ordering Dr: Sinan Farias MD STUDY: CTA CHEST REASON FOR EXAM: Female, 73 years old. Dyspnea. RADIATION DOSAGE (If Supplied By Facility): CTDIvol = ( 16.52 ) mGy, DLP = ( 616.09 ) mGycm TECHNIQUE: The examination was performed with the intravenous administration of 100 ml of Isovue 370 contrast material. Post-processing of the angiographic images was performed, with multiplanar reformation and 3D reconstruction. Individualized dose optimization techniques were used for this CT. COMPARISON: None. FINDINGS: Normal enhancement of the main pulmonary artery and right and left pulmonary arteries. Normal enhancement of the bilateral peripheral pulmonary arteries. There is no demonstrated pulmonary embolism. There is atherosclerotic calcification of the aortic arch with tortuosity. There is no demonstrated aortic dissection. There are mitral valvular calcifications. Normal mediastinum. There are calcified left hilar lymph nodes. Normal visualized trachea and bronchi. The lungs are well expanded. No focal infiltrate. Left lower lung granuloma. Normal pleura. Normal chest wall structures. There are degenerative changes of thoracic spine. Normal visualized upper abdomen. CT/CTA Chest W/WO Contrast IMPRESSION: Normal CTA chest examination, without a demonstrated pulmonary embolism or arterial dissection. Electronically Signed: Chetan Negro MD at 15:25 EDT , Service support , CC: Fausto Noble; Sinan Farias MD Insurance And Benefits Clerk: Signed XR CHEST 2V FRONTAL/LAT Observed: 02/15/2018 Status: F Source: [place] 10:32 AM [facility] REPOSITORY * * *Final Report* * * DATE OF EXAM: Feb 15 2018 10:32AM MDX 5291 - XR CHEST 2V FRONTAL/LAT / PROCEDURE REASON: edema, hypertension, hypothyroidism * * * * Physician Interpretation * * * * EXAMINATION: CHEST RADIOGRAPH (2 VIEW FRONTAL and LATERAL) CLINICAL HISTORY: Edema. Hypertension. MQ: XC2_5 Comparison: None. RESULT: Lines, tubes, and devices: None. Lungs and pleura: There is calcified residual of prior granulomatous infection with a calcified left lower lobe granuloma. There is mild elevation of the left hemidiaphragm of unknown chronicity. Could be chronic and on the basis of eventration. Mild diffuse interstitial prominence is thought to be chronic. There is no focal consolidation or acute pleural process. There is no overt pulmonary edema. Cardiomediastinal silhouette: Normal cardiomediastinal silhouette allowing for scoliotic curvature and mild rotation.. Other: The bony structures appear intact. IMPRESSION: No acute radiographic abnormality. Chronic interstitial lung changes and OGD. Insurance And Benefits Clerk: CLARISSE Transcribe Date/Time: Feb 15 2018 11:49A Dictated by : REED STRICKLAND MD This examination was interpreted and the report reviewed and electronically signed by: REED STRICKLAND MD on Feb 15 2018 11:52AM EST [id number] CNCO Observed: 01/20/2018 Status: COMPLETED Source: [place] 10:04 AM [facility] REPOSITORY HNO ID: [id number] Author: Mammography Coordinator Service: (none) Author Type: Physician Type: Letter Filed: 01/24/2018 11:31 PM Note Text: January 20, 2018 PID: [id number] Chelsey Mcgee [address] [place] [address] Dear Ms. Mcgee, We are pleased to inform you that the results of your recent breast imaging exam on 01/20/2018 are normal. Early detection of cancer is very important. We also understand recommendations regarding breast cancer screening are controversial. Please discuss with your primary care provider which strategy is best for you and whether a mammogram is right for you. Your imaging studies and report will be kept on file at [facility] as part of your permanent medical record and are available for your continuing care. Thank you for allowing us to help in meeting your health care needs. Sincerely, Dr. Lizarraga Interpreting Radiologist [facility] (Normal over 40) [facility] SCREENING Observed: 01/20/2018 Status: F Source: [place] 9:53 AM [facility] REPOSITORY * * *Final Report* * * DATE OF EXAM: Jan 20 2018 9:53AM WOW 0581 - [facility] SCREENING / PROCEDURE REASON: ROUTINE SCREENING * * * * Physician Interpretation * * * * RESULT: #[id number] - [facility] SCREENING BILATERAL DIGITAL SCREENING MAMMOGRAM WITH CAD: 01/20/2018 HISTORY: Routine Screening\ Screening Mammogram - patient reports NO breast symptoms /patient reports no breast symptoms /priors available for comparison. RESULT: TECHNIQUE: The study was acquired using full field digital technology and interpreted from soft copy. Current study was also evaluated with a Computer Aided Detection (CAD). Comparison is made to exams dated: 01/13/2017 mammogram, 01/02/2016 mammogram - [facility], 07/22/2013 mammogram - [facility], 03/06/2013 mammogram - [facility], 02/09/2012 mammogram - [facility], and 06/02/2011 mammogram - [facility]. There are scattered fibroglandular elements in both breasts. No significant masses, calcifications, or other findings are seen in either breast. There has been no significant interval change. IMPRESSION: NEGATIVE There is no mammographic evidence of malignancy. A 1 year screening mammogram is recommended. The exam was reviewed by a staff physician. bekah Hodgson M.D./arash:01/20/2018 10:04:27 Software Engineer Mobile: Maribel GARCIA(Emil)(Sanjana), [facility] letter sent: Normal over 40 Mammogram BI-RADS: 1 Negative Insurance And Benefits Clerk: Arash Transcribe Date/Time: Jan 20 2018 9:56A Dictated by: FELIPE YOO MD This examination was interpreted and the report reviewed and electronically signed by: MARTIN LIZARRAGA MD on Jan 20 2018 10:04AM EST [id number] ALLERGIES ALLERGIES DATE TYPE / NAME / CODE REACTION SEVERITY SOURCE CODE 05/25/2018 Drug carvedilol/O62452 I hear my heart [place] Allergy/41 4167(RXNORM) pounding in my Community 0102548( ears Hospital OMED CT) Repository 05/16/2018 Drug tramadol Hives Unknown [place] Allergy/41 HCl/O571099916(RX Community 7779650( NORM) Hospital OMED CT) Repository 05/16/2018 Drug Sulfa Rash Unknown [place] Allergy/41 (Sulfonamide Community 4491513( Antibiotics)/F[address]) 231389(RXNORM) Repository 05/16/2018 Drug budesonide/H77629 affected eyesight [place] Allergy/41 4214(RXNORM) (pt has glaucoma) Community 8865910([facility] OMED CT) Repository 05/16/2018 Drug formoterol/I58957 affected eyesight [place] Allergy/41 5421(RXNORM) (pt has glaucoma) Community 7220534([facility] CT) Repository 05/16/2018 Drug olmesartan/P52193 sob, lightheaded [place] Allergy/41 9634(RXNORM) Community 3171859([facility] OMED CT) Repository 04/08/2010 [facility] [place] 2039700( Repository OMED CT) 04/08/2010 DRUG TRAMADOL HCL [facility] [place] 6650968([facility] OMED CT) 12/22/2005 Drug SULFA INTOLERANCE [facility] Class/4195 (SULFONAMIDE Other [place] [address]([facility] ANT[facility]OT[facility]) Repository ED CT) ENCOUNTERS ENCOUNTERS ADMIT/DISCHARGE ACCOUNT ADMITTING ENCOUNTER LOCATION SOURCE NUMBER CLASS 05/25/2018 [id number] Ambulatory BMSBuilding:B [place] MS.CF.[facility] Repository 05/20/2018 [id number] Ambulatory [place] [facility] ing:CT Repository 05/16/2018/05/16/20 [id number] Ambulatory BMSBuilding:B [place] 18 MS.[facility] Repository 05/13/2018/05/13/20 [id number] Ambulatory [address] ing:CLSP Repository 05/04/2018/05/04/20 [id number] Ambulatory BMSBuilding:B [place] 18 MS.[facility] Repository 04/28/2018/04/28/20 [id number] Ambulatory BMSBuilding:B [place] 18 MS.[facility] Repository 04/28/2018 [id number] Ambulatory [facility] ing:[facility] Repository 04/22/2018 [id number] Ambulatory [facility] ing:LAB Repository 04/19/2018/04/19/20 [id number] Ambulatory BMSBuilding:B [place] 18 MS.[facility] Repository 03/21/2018 [id number] Ambulatory [facility] ing:CVS Repository 02/22/2018/02/23/20 [id number] Ambulatory [address] Repository 02/15/2018 [id number] Ambulatory [facility] Other [place] Repository 01/20/2018/01/21/20 [id number] Ambulatory [address] Repository PAYERS PAYERS ENCOUNTER GUARANTOR PAYER SUBSCRIBER SOURCE 05/25/2018 CHELSEY F Primary CHELSEY F [place] [id number] Insurance:MEDICARE WILLIAMSDOB: [facility] PART A [facility] [id number] Number: Repository [address]Svy: (772) [id number] [phone] () Date:2018-05-13 05/25/2018 Secondary CHELSEY F [place] [facility] Pending [facility] to [facility] [id number] Hospital Number: Repository [id number] Date:6669-90-75[address], [place] [address]IA: 05/25/2018 Tertiary NOT GIVENUNK [place] Insurance:SELF PAY Community [facility] Number: Effective Repository Date:2018-05-25 05/20/2018 CHELSEY F Primary CHELSEY F [place] [id number] Insurance:MEDICARE WILLIAMSDOB: [facility] PART A [id number] Number: Repository [address]Gea: 330 [id number] [phone] (HP) Date:2018-05-13 05/20/2018 Secondary CHELSEY F [place] Insurance:[facility]: [facility] CARE [address] [place], [place] [id number] Hospital Number: Repository [id number] Date:[id number] [address]KG: 05/20/2018 Tertiary NOT GIVENUNK [place] Insurance:SELF PAY [facility] Number: Effective Repository Date:2018-05-13 05/16/2018 CHELSEY F Primary CHELSEY F [place] [id number] Insurance:MEDICARE WILLIAMSDOB: [facility] PART A [facility] [id number] Number: Repository [id number]: 330 [id number] [phone] () Date:2018-05-16 05/16/2018 Secondary CHELSEY F [place] Insurance:[facility]: [place] [id number] Hospital Number: Repository [id number] Date:[id number] [address]KU: 05/16/2018 Tertiary NOT GIVENUNK [place] Insurance:SELF PAY [facility] Number: Effective Repository Date:2018-05-16 05/13/2018 CHELSEY F Primary CHELSEY F [place] [id number] Insurance:MEDICARE WILLIAMSDOB: [facility] PART A [place] [id number] Number: Repository [address]Auz: 330 [id number] [phone] (HP) Date:2018-04-28 05/13/2018 Secondary CHELSEY F [place] Insurance:[facility]: [facility] CARE [address] [place] [address] [id number] Hospital Number: Repository [id number] Date:6680-33-27[id number] [place] [address]ZO: 05/13/2018 Tertiary NOT GIVENUNK [place] Insurance:SELF PAY [facility]: Effective Repository Date:2018-04-28 05/04/2018 CHELSEY F Primary CHELSEY F [place] [id number] Insurance:MEDICARE WILLIAMSDOB: [facility] PART A [facility] [id number] Number: Repository [address]Ikr: 330 [id number] [phone] () Date:2018-04-19 05/04/2018 Secondary CHELSEY F [place] Insurance:[facility]: [facility] CARE [id number] Hospital Number: Repository [id number] Date:0509-16-45[id number] [place] [address]YM: 05/04/2018 Tertiary NOT GIVENUNK [place] Insurance:SELF PAY [facility] Number: Effective Repository Date:2018-05-04 04/28/2018 CHELSEY F Primary CHELSEY F [place] [id number] Insurance:MEDICARE WILLIAMSDOB: [facility] PART A [facility] [id number] Number: Repository [address]Lzb: 330 [id number] [phone] () Date:2018-04-28 04/28/2018 Secondary CHELSEY F [place] Insurance:[facility]: [facility] CARE [address] [place] [address] [id number] Hospital Number: Repository [id number] Date:2217-28-32[address], [place] [address]LY: 04/28/2018 Tertiary NOT GIVENUNK [place] Insurance:SELF PAY [facility] Number: Effective Repository Date:2018-04-28 04/28/2018 CHELSEY F Primary CHELSEY F [place] [id number] Insurance:MEDICARE LINKWOODDOB: [facility] PART A [facility] [id number] Number: Repository [address]Huy: 330 [id number] [phone] (HP) Date:2018-04-19 04/28/2018 Secondary CHELSEY F [place] [facility]: [facility] CARE [address] [place] [address] [id number] Hospital Number: Repository [id number] Date:3848-57-22OL [id number] [place] [address]FX: 04/28/2018 Tertiary NOT GIVENUNK [place] Insurance:SELF PAY [facility] Number: Effective Repository Date:2018-04-19 04/22/2018 CHELSEY F Primary CHELSEY F [place] [id number] Insurance:MEDICARE WILLIAMSDOB: [facility] PART A [facility] [id number] Number: Repository [address]Znd: 330 [id number] [phone] () Date:2018-04-22 04/22/2018 Secondary CHELSEY F [place] Insurance:[facility]: [facility] CARE [address] [place] [address] [id number] Hospital Number: Repository [id number] Date:3105-45-10TI [id number] [place] [address]EG: 04/22/2018 Tertiary NOT GIVENUNK [place] Insurance:SELF PAY [facility] Number: Effective Repository Date:2018-04-22 04/19/2018 CHELSEY F Primary CHELSEY F [place] [id number] Insurance:MEDICARE WILLIAMSDOB: [facility] PART A [facility] [id number] Number: Repository [address]Hzi: 330 [id number] [phone] (HP) Date:2018-04-11 04/19/2018 Secondary CHELSEY F [place] Insurance:[facility]: [facility] CARE [address] [place], [place] [id number] Hospital Number: Repository [id number] Date:9490-09-20[address], [place] [address]SZ: 04/19/2018 Tertiary NOT GIVENUNK [place] Insurance:SELF PAY [facility] Number: Effective Repository Date:2018-04-19 03/21/2018 CHELSEY F Primary CHELSEY F Maicol [id number] Insurance:MEDICARE WILLIAMSDOB: [facility] PART A [facility] [id number] Number: Repository [id number]: [phone] [id number] [phone] () Date:2018-03-15 03/21/2018 Secondary CHELSEY F [place] Insurance:[facility] WILLIAMSDOB: [facility] CARE [id number] Hospital Number: Repository [id number] Date:[id number] [address]DG: 03/21/2018 Tertiary NOT GIVENUNK Maicol Insurance:SELF PAY [facility] Number: Effective Repository Date:2018-03-15
== END 2018-05-13 14:45 | disposition home or self-care (01) ==
LOC: CLSP 06:52
PROVIDERS: Family Provider Physician Assistant; PCP Physician Assistant; Referring Provider Internal Medicine Cardiovascular Disease; Visit Provider Internal Medicine Cardiovascular Disease
DX: R06.09 Other forms of dyspnea (principal); I44.7 Left bundle-branch block, unspecified; I51.7 Cardiomegaly; I51.89 Other ill-defined heart diseases; I10 Essential (primary) hypertension; E78.5 Hyperlipidemia, unspecified; E03.2 Hypothyroidism due to medicaments and other exogenous substances; I89.0 Lymphedema, not elsewhere classified; M10.9 Gout, unspecified; H40.9 Unspecified glaucoma; M19.90 Unspecified osteoarthritis, unspecified site; I51.9 Heart disease, unspecified; J98.4 Other disorders of lung; E66.01 Morbid (severe) obesity due to excess calories; Z68.42 Body mass index [BMI] 45.0-49.9, adult; Z86.718 Personal history of other venous thrombosis and embolism; Z85.850 Personal history of malignant neoplasm of thyroid; Z79.01 Long term (current) use of anticoagulants; Z79.899 Other long term (current) drug therapy
CPT/HCPCS: 82803; 93460; 99152; 99153; J7040; C1751; C1769; C1894; Q9967

== ENCOUNTER → 2018-05-20 13:40 | Outpatient (CLI) | payer MEDICARE, OTHER, SELFPAY ==
[2018-05-13 10:12] VITALS: BMI 47.9
[2018-05-16 10:37] VITALS: BMI 47.9
--- NOTE | 2018-05-20 13:49 | CT_ITS ---
STUDY: CT CHEST WITHOUT CONTRAST REASON FOR EXAM: Female, 73 years old. 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 RADIATION DOSAGE (If Supplied By Facility): CTDIvol = ( 16.91 ) mGy, DLP = ( 1112.32 ) mGycm TECHNIQUE: Transaxial imaging was performed without the administration of intravenous contrast material. This is a cardiac over read examination. Individualized dose optimization techniques were used for this CT. COMPARISON: None. FINDINGS: Calcified granuloma in the left lower lobe. There is no demonstrated pleural abnormality. Mild calcification of the mitral valve annulus. Normal mediastinum. Calcification of the left hilar lymph nodes. Normal unenhanced pulmonary arteries. There is atherosclerotic calcification of the aortic arch with tortuosity and elongation of the aortic arch and descending thoracic aorta. Normal osseous structures. There is no demonstrated abnormality of the visualized upper abdomen. CT/CCTA W/CONT Coronary Arteries IMPRESSION: Calcified granuloma in the left lower lobe as well as calcification of the left hilar lymph nodes. Electronically Signed: Codey Caro MD at 8:56 EST Tel [phone], Service support ,
--- NOTE | 2018-05-20 14:00 | CT_ITS ---
STUDY: CT CHEST WITHOUT CONTRAST REASON FOR EXAM: Female, 73 years old. 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 RADIATION DOSAGE (If Supplied By Facility): CTDIvol = ( 16.91 ) mGy, DLP = ( 1112.32 ) mGycm TECHNIQUE: Transaxial imaging was performed without the administration of intravenous contrast material. This is a cardiac over read examination. Individualized dose optimization techniques were used for this CT. COMPARISON: None. FINDINGS: Calcified granuloma in the left lower lobe. There is no demonstrated pleural abnormality. Mild calcification of the mitral valve annulus. Normal mediastinum. Calcification of the left hilar lymph nodes. Normal unenhanced pulmonary arteries. There is atherosclerotic calcification of the aortic arch with tortuosity and elongation of the aortic arch and descending thoracic aorta. Normal osseous structures. There is no demonstrated abnormality of the visualized upper abdomen. CT/Limited Chest CT w/CCTA IMPRESSION: Calcified granuloma in the left lower lobe as well as calcification of the left hilar lymph nodes. Electronically Signed: Codey Caro MD at 8:56 EST Tel [phone], Service support ,
[2018-05-20 14:21] VITALS: BP 156/70; PULSE 74; RESP 16; O2SAT 100; BMI 49.1
[2018-05-20 14:35] VITALS: BP 156/70; PULSE 74
[2018-05-20] MEDS: Metoprolol Tartrate 5 MG/5 ML Vial IV ×2 (14:35→14:57)
[2018-05-20 14:46] VITALS: BP 157/70; PULSE 67
[2018-05-20 14:57] VITALS: BP 116/52; PULSE 74
[2018-05-20 15:04] VITALS: BP 120/5; PULSE 67; RESP 16
[2018-05-20 15:17] VITALS: BP 139/72; PULSE 64; RESP 16; O2SAT 100
--- NOTE | 2018-05-25 08:52 | CCTA.WCONT ---
CCTA w/Cont Coronary Arteries Date of Study:: 05/20/18 Evaluate origin and pathway of left main coronary artery. Consent:: Obtained Coronary artery CTA: Patient underwent coronary artery CT a evaluation using standard protocol for heart rate control. Patient was evaluated with a left heart catheterization which demonstrated her left main originating off of her right coronary cusp. CTA was performed to determine whether her left main traverse between the aorta and the pulmonary artery. Contrast dye infusion appeared to be adequate, but somewhat suboptimal. Using the MIP for manipulation of the images, it appears the patient's left main coronary artery comes off posteriorly, possibly from the noncoronary cusp, and traverses anteriorly between the left atrium and underneath the pulmonary artery. It does not appear to traverse between the pulmonary artery. The right coronary artery appears to come off the right coronary cusp appropriately. LV enhancement appears to be appropriate although suboptimal as well. Conclusions: The left main coronary artery appears to originate off of the posterior portion of the aorta up, possibly the noncoronary cusp, and traverses between the left atrium and gives rise to the LAD and left circumflex. The left main does not appear to course between the aorta and the pulmonary artery. The right coronary artery appears to come off the right coronary cusp and populated to the RV and bifurcates into a posterior descending artery. Recommendations: At this point I would make a copy of their CTA and refer her to the [facility] CV surgical department to determine if the patient requires bypass surgery for her current anatomy. 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 Patient taught procedure well. No complications. LEFT MAIN CORONARY ARTERY: [] LEFT ANTERIOR DESCENDING CORONARY ARTERY: [] LEFT CIRCUMFLEX CORONARY ARTERY: [] RIGHT CORONARY ARTERY: [] THORACIC AORTA: [] PULMONARY ARTERY: [] LEFT ATRIUM/APPENDAGE: [] MITRAL VALVE: [] AORTIC VALVE: [] LEFT VENTRICLE: [] CORONARY CALCIUM SCORE: []
== END ==
PROVIDERS: Family Provider Physician Assistant; PCP Physician Assistant; Referring Provider Internal Medicine Cardiovascular Disease; Visit Provider Internal Medicine Cardiovascular Disease
DX: Q24.5 Malformation of coronary vessels (principal)
CPT/HCPCS: 75574; 76380; Q9967; A4216

== ENCOUNTER → 2018-06-22 12:54 | Outpatient (CLI) | payer MEDICARE, OTHER, SELFPAY ==
[2018-06-03 13:26] VITALS: BMI 49.3
--- NOTE | 2018-06-22 12:58 | VDLE_ITS ---
Reason For Study: F/U DVT RIGHT LEFT CFV is compressible, spontaneous, phasic, GSV is normal. competent and demonstrates normal Lt CFV is partially compressible with bright augmentation. intraluminal echoes consistent with chronic Procedure DVT Exam performed in department. A preliminary report was called and/or faxed Lt FV and Lt PopV are non compressible; no to Fausto SONG. significant change noted from previous study done on 03/21/2018 Lt T/P Trunk is partially compressible Unable to visualize Lt calf veins due to edema. Interpretation Summary Chronic venous changes are noted in the left common femoral vein, which is partially compressible and demonstrates bright intraluminal echogenicity. Acute and chronic deep vein thrombosis is noted in the left femoral vein, popliteal vein, and tibio-peroneal trunk. The deep veins of the left calf were not visualized due to edema. The left greater saphenous vein appears patent and compressible segmentally. Ordering Physician: Fausto Noble Referring Physician: Fausto Noble Performed By: Angle Casillas, JAD, RVT
== END ==
PROVIDERS: Family Provider Physician Assistant; PCP Physician Assistant; Referring Provider Physician Assistant; Visit Provider Physician Assistant
DX: I82.412 Acute embolism and thrombosis of left femoral vein (principal)
CPT/HCPCS: 93971

== ENCOUNTER 2019-02-10 03:33 | Emergency (ER) | payer MEDICARE, OTHER, SELFPAY ==
[2018-06-03 13:26] VITALS: BMI 49.3
[2019-02-10 03:34] VITALS: BP 191/76; PULSE 85; RESP 20; TEMP 36.6; O2SAT 97; BMI 49.4
--- NOTE | 2019-02-10 03:42 | ED.DCSUM_ITS ---
History of Present Illness Chief Complaint: Allergic Reaction Informant: Patient Onset: Yesterday Narrative: Increased redness and swelling on her throat over the past day. Working in her garden with [employer] the day prior. No trouble swallowing. Chronic dyspnea without worsening symptoms. States that allergy testing has been negative recently. No changes in soaps or detergents, no new medications. Used topical Benadryl yesterday with no relief. States it was . No history of diabetes. Prior similar symptoms: No Past Medical History - Allergies and Home Meds Allergies/Adverse Reactions: Allergies Sulfa (Sulfonamide Antibiotics) Allergy (Verified 02/10/19 03:36) Rash tramadol HCl [From Ultram] Allergy (Verified 02/10/19 03:36) Hives olmesartan Adverse Reaction (Severe, Verified 02/10/19 03:36) sob, lightheaded budesonide [From Symbicort] Adverse Reaction (Intermediate, Verified 02/10/19 03:36) affected eyesight (pt has glaucoma) carvedilol [From Coreg] Adverse Reaction (Intermediate, Verified 02/10/19 03:36) I hear my heart pounding in my ears formoterol [From Symbicort] Adverse Reaction (Intermediate, Verified 02/10/19 03:36) affected eyesight (pt has glaucoma) Primary Care Physician: Fausto Noble PA [Primary Care Provider] - Surgical History: - - The patient underwent total thyroidectomy in 2006. Left scalp a cholecystectomy was performed in 1992. In 1985, the patient underwent a partial hysterectomy. In 2002, a right leg abscess was surgically drained. In 2006, the patient underwent bilateral nephrectomy, and required subsequent abdominal wound debridement. Smoking Status: Never smoker - Family History Maternal Family History: Family History (Last Updated 05/16/18 @ 10:42 by Chayito Ramirez) Mother CAD (coronary artery disease) Hypertension Daughter Cancer Sister Hypertension Sister Hypertension Family History: Reports: - - Family history is noncontributory Review of Systems General: Denies: Chills, Fever, Sweats Eyes: Denies: Visual changes - bilaterally, Diplopia ENT: Denies: Rhinorrhea, Sore throat Cardiovascular: Denies: Chest pain, Palpitations Respiratory: Denies: Dyspnea, Cough, Dyspnea on exertion Gastrointestinal: Denies: Abdominal pain, Nausea, Vomiting, Diarrhea, Melena, Hematochezia Genitourinary: Denies: Dysuria, Hematuria, Frequency Musculoskeletal: Denies: Back pain, Extremity Pain Skin: Reports: Rash. Denies: Wounds Neurological: Denies: Headache, Weakness, Numbness Physical Exam Vital Signs/Narrative: Vital Signs Temp Pulse Resp BP Pulse Ox 02/10/19 03:34 97.9 F 85 20 H 191/76 H 97 Inital Vital Signs reviewed: Yes General: Well nourished, Well developed, No Acute Distress Head: Normocephalic, Atraumatic Eyes: Perrl, EOMI ENT: Moist mucous membranes, No rhinorrhea, - - No lip or tongue swelling. Airway patent. No stridor. Neck: Supple, Nontender, - - Erythema along the anterior aspect of the neck extending laterally on the left side, no wounds or lesions. No drainage. Cardiovascular: Regular rate, Regular rhythm, No murmurs Respiratory: No distress, CTA bilaterally, Chest nontender Abdomen: Soft, Nontender, Nondistended, Normal bowel sounds Back: Nontender, Normal Inspection Extremities: Nontender, No edema Skin: Normal color, No rash Neurological: Alert, Oriented x3, Cranial nerves II-XII grossly intact, Normal Strength, Normal Sensation Psychological: Normal affect, Normal Mood Diagnostic/Tx/Re-eval - Medical Decision Making Patient presents with concerns of contact dermatitis, there is no airway compromise. Vitals stable except for elevated blood pressure, she is asymptomatic. Prescription written to be filled by pharmacy here for prednisone and Benadryl. She will start a prednisone in the ED. She will take the Benadryl when she gets home due to driving here. Signs and symptoms discussed return. All questions were answered. ED Disposition - Plan for ED Patient: Disposition: Home or Assisted Living Diagnosis: Dermatitis Instructions: Contact Dermatitis Prescriptions: DiphenhydrAMINE [Benadryl] 25 mg PO Q6H PRN PRN #30 cap PRN Reason: Itching Transmission Status: P[id number] Prednisone [Deltasone] 40 mg PO DAILY #15 tab Transmission Status: Pending to [id number] Referrals: Fausto Noble PA [Primary Care Provider] - 5-7 Days
[2019-02-10 04:02] VITALS: BP 130/51; PULSE 71; RESP 16; O2SAT 96
== END 2019-02-10 04:04 | disposition home or self-care (01) ==
PROVIDERS: Emergency Provider Emergency Medicine; Family Provider Physician Assistant; PCP Physician Assistant
DX: L30.9 Dermatitis, unspecified (principal)
CPT/HCPCS: 99282

== ENCOUNTER → 2020-01-24 09:58 | Outpatient (CLI) | payer MEDICARE, OTHER, SELFPAY ==
--- NOTE | 2020-01-24 10:01 | VDLE_ITS ---
Reason For Study: Acute embolism ad thrombosis of left femoral vein Procedure LEFT Exam performed in department. GSV is normal. Compared to 06/24/2018. Left CFV, FV, PopV and T/P Trunk are A preliminary report was called and/or faxed partially compressible with bright to Real. intraluminal echoes consistent with chronic DVT. Normal venous flow noted in the CFV, FV and PopV. PTV is compressible, visualized at distal calf only. Unable to visualize PTV prox-mid and PeroV due to edema/body habitus. Interpretation Summary Chronic venous changes are noted in the left common femoral vein, femoral vein, popliteal vein, and tibio-peroneal trunk, which are partially compressible and demonstrate bright intraluminal echogenicity. The left posterior tibial vein and peroneal vein were not visualized due to edema and the patient's body habitus. The left great saphenous vein appears patent and compressible segmentally. There is no evidence of acute deep vein thrombosis in the left lower extremity. Ordering Physician: Fausto Noble Referring Physician: Fausto Noble Performed By: Kelley Reardon RVT
== END ==
PROVIDERS: PCP Physician Assistant; Referring Provider Physician Assistant; Visit Provider Physician Assistant
DX: I82.412 Acute embolism and thrombosis of left femoral vein (principal)
CPT/HCPCS: 93971

== ENCOUNTER 2020-06-23 11:32 | Emergency (ER) | payer MEDICARE, OTHER, SELFPAY ==
[2020-06-23 11:33] VITALS: BP 137/78; PULSE 72; RESP 20; TEMP 35.4; O2SAT 99; BMI 49.4
--- NOTE | 2020-06-23 11:52 | CT_ITS ---
STUDY: CT ABDOMEN AND PELVIS WITHOUT CONTRAST REASON FOR EXAM: Female, 75 years old. Right groin abscess with drainage RADIATION DOSAGE (If Supplied By Facility): CTDIvol = ( 23.78 ) mGy, DLP = ( 1473.49 ) mGycm TECHNIQUE: Transaxial images were obtained from the dome of the diaphragm to the symphysis pubis without oral contrast, and without intravenous contrast. Sagittal and coronal images were reconstructed. Individualized dose optimization techniques were used for this CT. COMPARISON: None. FINDINGS: The visualized lung bases are unremarkable. The visualized portions of the heart are within normal limits. Normal liver. Gallbladder is removed. There is no biliary dilation. Normal spleen. Normal pancreas. Normal bilateral adrenal glands. Normal right kidney. Normal left kidney. Normal visualized stomach. Normal small intestine. Normal colon. The appendix is visualized and appears normal. Normal abdominal aorta. Normal inferior vena cava. Normal retroperitoneum. Normal urinary bladder. Uterus is removed. Osseous structures are intact. BMI is severely elevated. Right upper thigh has an open wound filled with debris. There is no subcutaneous or deep abscess. CT/Abdomen/Pelvis without Cont IMPRESSION: Right upper thigh wound, no loculated abscess. No abdominal findings. Electronically Signed: Link Shirley, at 13:27 EST Tel , Service support ,
--- NOTE | 2020-06-23 11:53 | ED.VIS.GEN ---
History of Present Illness Chief Complaint: Abscess Informant: Patient Onset: Days Maximum Severity: Mild Narrative: Patient presents complaining of a tender draining red mass to the right groin that began a few days ago, she states it continues to drain, she has had no fever no cough no chest pain abdominal pain bowel bladder habits are unremarkable she has history of lower extremity edema and she chronically wraps her legs, she is on Eliquis for DVT chronically left leg She has no history of MRSA skin infections, doing well at home executing all daily activities presents because of the pain persistent drainage she is not prone to skin abscesses she is having no pelvic pain or abdominal pain Past Medical History - Allergies and Home Meds Allergies/Adverse Reactions: Allergies Sulfa (Sulfonamide Antibiotics) Allergy (Verified 06/23/20 11:35) Rash tramadol HCl [From Ultram] Allergy (Verified 06/23/20 11:35) Hives olmesartan Adverse Reaction (Severe, Verified 06/23/20 11:35) sob, lightheaded budesonide [From Symbicort] Adverse Reaction (Intermediate, Verified 06/23/20 11:35) affected eyesight (pt has glaucoma) carvedilol [From Coreg] Adverse Reaction (Intermediate, Verified 06/23/20 11:35) I hear my heart pounding in my ears formoterol [From Symbicort] Adverse Reaction (Intermediate, Verified 06/23/20 11:35) affected eyesight (pt has glaucoma) Primary Care Physician: Fausto Noble PA [Primary Care Provider] - Past Medical History: - - Includes as above DVT left leg on Eliquis Surgical History: - - The patient underwent total thyroidectomy in 2006. Left scalp a cholecystectomy was performed in 1992. In 1985, the patient underwent a partial hysterectomy. In 2002, a right leg abscess was surgically drained. In 2006, the patient underwent bilateral nephrectomy, and required subsequent abdominal wound debridement. Smoking Status: Never smoker - Family History Maternal Family History: Family History (Last Updated 05/16/18 @ 10:42 by Chayito Ramirez) Mother CAD (coronary artery disease) Hypertension Daughter Cancer Sister Hypertension Sister Hypertension Family History: Reports: - - Family history is noncontributory Review of Systems General: Denies: Chills, Fever, Sweats Eyes: Denies: Visual changes - bilaterally, Diplopia ENT: Denies: Rhinorrhea, Sore throat Cardiovascular: Denies: Chest pain, Palpitations Respiratory: Denies: Dyspnea, Cough, Dyspnea on exertion Gastrointestinal: Reports: Abdominal pain. Denies: Nausea, Vomiting, Diarrhea, Melena, Hematochezia Genitourinary: Denies: Dysuria, Hematuria, Frequency Musculoskeletal: Denies: Back pain, Extremity Pain Skin: Denies: Rash, Wounds Neurological: Denies: Headache, Weakness, Numbness Physical Exam Vital Signs/Narrative: Vital Signs Temp Pulse Resp BP Pulse Ox 06/23/20 11:33 95.7 F L 72 20 H 137/78 H 99 General: Well nourished, Well developed, No Acute Distress Head: Normocephalic, Atraumatic Eyes: Perrl, EOMI ENT: Moist mucous membranes, No rhinorrhea Neck: Supple, Nontender Cardiovascular: Regular rate, Regular rhythm, No murmurs Respiratory: No distress, CTA bilaterally, Chest nontender Abdomen: Soft, Nontender, Nondistended, Normal bowel sounds, - - Is a large woman, her BMI is about 50, she has a large pannus multiple redundant skin folds soft tissue folds when these are peeled back to the right groin there is a 3 to 4 cm tender circular area of redness and warmth that has a volcanic type that is draining what appears to be purulent fluid this Back: Nontender, Normal Inspection Extremities: Nontender, No edema Skin: Normal color, No rash Neurological: Alert, Oriented x3, Cranial nerves II-XII grossly intact, Normal Strength, Normal Sensation Psychological: Normal affect, Normal Mood Diagnostic/Tx/Re-eval - Medical Decision Making Again this appears to be clinically restricted to soft tissue there is no signs of foreigners gangrene she is not a diabetic no history of skin infections she indicates she is executing all of her daily activities presents because the pain persistent drainage she is doing well at home, she prefers outpatient management as she is caring for someone who is at home given all the above labs IV fluids CT abdomen pelvis to evaluate extent of this process ED labs are generally unremarkable to those reports per radiology there is no signs of deep-seated abscess rather the abnormality described on physical exam is found on CT it appears again not to involve any deep structures, patient understood all the above she agreed to I&D the area was anesthetized locally and then easily I indeed with reduction of quite a bit of thick yellow fluid irrigated loculations broken down was packed, spoke with surgery on-call they agree with the above and they will see the patient in the office in a day or 2, culture sent prior to antibiotics, she will given IV Rocephin and metronidazole she will be discharged on Augmentin due to allergy profile and no history of MRSA and she will return for change in symptoms Home stable Final impression right groin abscess status post I&D ED Disposition - Plan for ED Patient: Diagnosis: Right groin abscess Instructions: ED Abscess Incision And Drainage Prescriptions: Amox/Clavulanate Tablet [Augmentin Tablet] 875 mg PO Q12H #20 tab Prescription Printed Oxycodone HCl/Acetaminophen [Percocet 5/325] 1 tab PO Q6H PRN PRN 3 Days #12 tab PRN Reason: Pain Prescription Printed Referrals: Fausto Noble PA [Primary Care Provider] - Sonya Hunt MD [STAFF PHYSICIAN] -
[2020-06-23 12:34] LABS: Anion Gap 6 (5-15); BUN 30 mg/dL (7-18); BUN/Creat Ratio 26.1 RATIO (10-20); Calcium,Total 9.6 mg/dL (8.5-10.1); Chloride 103 mmol/L (98-107); Creatinine, Serum 1.15 mg/dL (0.55-1.02); EST Glomerular Filtration Rate 49 mL/min (>60); Est Glom Filt Rate - Afr Amer 59 mL/min (>60); Estimated Creatinine Clearance 32.39 ml/min; Glucose 94 mg/dL (74-106); Potassium 3.9 mmol/L (3.5-5.1); Sodium Level 139 mmol/L (136-145)
[2020-06-23 12:40] LABS: Absolute Lymphocyte Count 0.74 X10^3/uL (0.83-4.51); Absolute Neutrophil Count 4.6 X10^3/uL (2.0-7.7); Basophil# 0.03 X10^3/uL; Basophil% 0.5 % (0-1); Eosinophil# 0.09 X10^3/uL; Eosinophils% 1.5 % (0-5); Hematocrit 41.8 % (37-47); Lymphocyte # 0.74 X10^3/ul (4.0); Lymphocyte % 12.4 % (19-41); Mean Corp Hgb Conc 31.1 g/dL (32-36); Mean Corpuscular Hgb 28.3 pg (27.0-32.0); Mean Corpuscular Volume 90.9 fL (81-99); Mean Platelet Vol. 10.1 fl (6.2-12.0); Monocyte# 0.51 X10^3/uL; Monocyte% 8.5 % (0-10); NRBC Flagged by Analyzer 0 % (0-5); Neutrophil # 4.58 X10^3/uL (2.7-7.7); Neutrophil % 76.8 % (47-70); Platelet Count 236 K/mm3 (150-450); RBC Distribution Width CV 13.7 % (11.6-14.6); RBC Distribution Width SD 45.8 fl (35.1-43.9)
[2020-06-23] MEDS: Lidocaine 1% (20 ml mdv) 20 ML Vial INFILT (14:30)
[2020-06-23] MEDS: Ceftriaxone 1 GM/50 ML BAG IV (15:25)
[2020-06-23] MEDS: metroNIDAZOLE 500 MG/100 ML BAG 100 MG IV (16:10)
[2020-06-23 17:35] VITALS: BP 140/58; PULSE 72; RESP 16; TEMP 37.1; O2SAT 99
== END 2020-06-23 17:40 | disposition home or self-care (01) ==
LOC: ED 12:31
PROVIDERS: Emergency Provider Emergency Medicine; PCP Physician Assistant
DX: L02.214 Cutaneous abscess of groin (principal); Z86.718 Personal history of other venous thrombosis and embolism; Z79.01 Long term (current) use of anticoagulants
CPT/HCPCS: 10060; 74176; 80048; 85025; 87070; 87077; 87186; 87205; 96361; 96365; 96366; 96367; 99283; J7040; J7050

== ENCOUNTER 2020-10-16 15:41 | Outpatient (RCR) | payer MEDICARE, OTHER, SELFPAY | END 2020-11-20 23:59 | LOC: IMMUN 15:41 | PROVIDERS: PCP Physician Assistant; Visit Provider Family Medicine | DX: Z23 Encounter for immunization (principal) | CPT/HCPCS: 0001A; 91300 ==

== ENCOUNTER → 2021-12-17 | Outpatient (CLI) | payer MEDICARE, OTHER, SELFPAY ==
--- NOTE | 2021-12-17 07:55 | VDLE_ITS ---
Reason For Study: embolism Procedure LEFT This is a venous duplex using B-mode, color GSV is normal. flow and spectral Doppler. Minimal chronic vein wall thickening is noted Exam performed in department. in the CFV, FV, POP V, and T/P Trunk. Normal The exam was abbreviated due to the COVID 19 venous flow patterns noted. protocol. PTV is compressible. The exam was of fair technical quality due LT PerV is compressible. to pt body habitus and swelling. A preliminary report was called and/or faxed to Fausto Noble. VL/Venous Duplex US, Unilateral Interpretation Summary Deep veins of the left lower extremity are patent and compressible segmentally. There is no evidence of left lower extremity deep vein thrombosis. The left great saphenous vein linda ears patent and compressible segmentally. Minimal chronic vein wall thickening is noted in the left common femoral vein, femoral vein, popliteal vein, and tibio-peroneal trunk. Ordering Physician: Fausto Noble Performed By: Justin Moulton RVT
== END | disposition home or self-care (01) ==
LOC: CVS 07:42
PROVIDERS: PCP Physician Assistant; Referring Provider Physician Assistant; Visit Provider Physician Assistant
DX: I82.412 Acute embolism and thrombosis of left femoral vein (principal)
CPT/HCPCS: 93971

== ENCOUNTER → 2022-01-16 | Outpatient (CLI) | payer MEDICARE, OTHER, SELFPAY ==
--- NOTE | 2022-01-16 13:25 | CT_ITS ---
STUDY: CT PELVIS WITH CONTRAST REASON FOR EXAM: Female, 76 years old. LYMPHEDEMA RADIATION DOSAGE (If Supplied By Facility): CTDIvol = ( 28.21 ) mGy, DLP = ( 1009.22 ) mGycm TECHNIQUE: Transaxial imaging of the pelvis was performed without oral contrast. IV 100mL Isovue-300 was administered intravenously. Individualized dose optimization techniques were used for this CT. COMPARISON: None. FINDINGS: The urinary bladder is decompressed therefore not optimally evaluated. No evidence of bladder wall thickening is visualized, no evidence of stranding of the pelvic fat planes. The uterus is surgically absent. Normal visualized small intestine. Normal visualized colon. There is no pelvic fluid. There is no pelvic lymphadenopathy or mass lesion. Subtle bilateral inguinal lymph nodes are seen. Normal visualized pelvic arteries. Normal abdominal wall. Degenerative bone changes visualized with grade 1 anterolisthesis of L4 over L5, loss of intervertebral disc height at L4-L5 and L5-S1 intervertebral disc spaces. Degenerative changes visualized in the pubic symphysis. CT/Pelvis WITH IV Contrast IMPRESSION: Unremarkable CT scan of the pelvis. Degenerative bone changes. Electronically Signed: Guicho Lemos MD at 16:24 EDT ,
[2022-01-16 13:46] LABS: CREATININE FINGERSTICK < 0.9 mg/dL (0.55-1.02); EGFR FINGERSTICK > 60.0000 mL/min (>60)
== END | disposition home or self-care (01) ==
LOC: CT 13:12
PROVIDERS: PCP Physician Assistant; Referring Provider Family Medicine; Visit Provider Family Medicine
DX: I89.0 Lymphedema, not elsewhere classified (principal); R10.9 Unspecified abdominal pain
CPT/HCPCS: 72193; Q9967

== ENCOUNTER 2022-08-11 08:18 | Observation (INO) | payer MEDICARE, OTHER, SELFPAY ==
[2022-08-11 08:19] VITALS: BP 175/75; PULSE 85; RESP 16; TEMP 35.8; O2SAT 95; BMI 50.3
--- NOTE | 2022-08-11 08:36 | VDLE_ITS ---
Reason For Study: pain Procedure LEFT This is a venous duplex using B-mode, color GSV is normal. flow and spectral Doppler. Minimal chronic vein wall thickening is noted Exam performed portable in ED. in the CFV, FV, POP V, and T/P Trunk. Normal The exam was abbreviated due to the COVID 19 venous flow patterns noted. protocol. PTV is compressible. The exam was of fair technical quality due LT PerV is compressible. to pt body habitus. A preliminary report was called and/or faxed to Dr. Mauro. VL/Venous Duplex US, Unilateral Interpretation Summary Chronic vein wall thickening is noted in the left common femoral, femoral, popl iteal, tibioperoneal trunk the venous flow patterns appear normal. Patent and compressible left great saphenous vein. Abbreviated COVID-19 protocol utilized Fair technical quality secondary to body habitus and edema Ordering Physician: Chetan Mauro Performed By: Justin Moulton RVT
--- NOTE | 2022-08-11 08:37 | EDS_ITS ---
HPI History of Present Illness Chief Complaint: Cellulitis Informant: patient Narrative Narrative: Patient woke up this morning within the last couple hours with pain in her left leg and noticed it was very red and concerned she may have cellulitis in that leg like she has had in the right one in the past. She denies any injury. She denies any systemic symptoms or dyspnea/chest pain or definite fever, she took her temperature it was around 99 which is high for her. She states her left leg is not usually red. She did not see it before she went to bed last night, so she is not exactly sure when the redness started. Remotely had a DVT in the left lower extremity, ultrasound maybe 3 or 4 years ago that showed clot in the thigh. She has been on apixaban ever since. 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 Lymphedema of leg Morbid obesity Swelling of lower extremity Home Medications fish, borage, flaxseed oils-omega 3,6,9 comb no.1 1,200 mg capsule 2,400 mg PO DAILY 01/07/16 [History Last Taken Unknown] timolol maleate 0.5 % eye drops 1 drp EACH EYE BID 01/07/16 [History Last Taken Unknown] allopurinol 100 mg tablet 100 mg PO BID 04/13/18 [History Last Taken Unknown] furosemide 40 mg tablet 40 mg PO DAILY 04/13/18 [History Last Taken Unknown] vitamin A-vitamin C-vit E-min capsule 1 cap PO DAILY 04/19/18 [History Last Taken Unknown] apixaban 5 mg tablet (Eliquis) 5 mg PO BID 04/28/18 [History Last Taken Unknown] Aspirin 1 tab PO DAILY 05/13/18 [History Last Taken Unknown] levothyroxine 112 mcg tablet 112 mcg PO DAILY 05/16/18 [History Last Taken Unknown] losartan 50 mg tablet 50 mg PO DAILY #90 tabs 06/03/18 [Rx Last Taken Unknown] prednisone 20 mg tablet 40 mg PO DAILY #15 tabs 02/10/19 [Rx Last Taken Unknown] metoprolol succinate 25 mg tablet,extended release 24 hr 25 mg PO BID 06/23/20 [History Last Taken Unknown] levofloxacin 500 mg tablet 500 mg PO DAILY #7 tabs 06/25/20 [Rx Last Taken Unknown] clotrimazole 1 % topical cream (Lotrimin AF (clotrimazole)) 1 applic topical BID 7 days #28.4 grams 07/02/20 [Rx Last Taken Unknown] fluconazole 150 mg tablet (Diflucan) 150 mg PO ONCE #1 tab 07/02/20 [Rx Last Taken Unknown] Allergy/AdvReac Type Severity Reaction Status Date / Time Sulfa (Sulfonamide Allergy Rash Verified 07/02/20 10:08 Antibiotics) tramadol HCl [From Ultram] Allergy Hives Verified 07/02/20 10:08 olmesartan AdvReac Severe sob, Verified 07/02/20 10:08 lightheaded budesonide [From Symbicort] AdvReac Intermediate affected Verified 07/02/20 10:08 eyesight (pt has glaucoma) carvedilol [From Coreg] AdvReac Intermediate I hear my Verified 07/02/20 10:08 heart pounding in my ears formoterol [From Symbicort] AdvReac Intermediate affected Verified 07/02/20 10:08 eyesight (pt has glaucoma) Family History Mother CAD (coronary artery disease) Hypertension Daughter Cancer Sister Hypertension Sister Hypertension Surgical History (Updated 01/01/22 @ 05:32 by Chuy Miller) History Incision and drainage abscess right groin History of bilateral knee replacement History of bilateral oophorectomies History of cholecystectomy History of hysterectomy History of total thyroidectomy Status post right and left heart catheterization Social History Smoking Status: Never smoker second hand exposure: Yes alcohol intake: never caffeine: Yes (hot chocolate) Type: other Number of servings: 1 ROS ROS ED Constitutional Constitutional ED: Denies chills or fever(s) Cardiovascular Cardiovascular: Reports leg edema; Denies chest pain, palpitations or racing h eartbeat Respiratory/Chest Respiratory/Chest: Reports dyspnea on exertion; Denies cough Gastrointestinal Gastrointestinal: Denies abdominal pain, constipation, diarrhea, melena, nausea or vomiting Musculoskeletal Musculoskeletal: Reports extremity pain; Denies neck pain Integumentary Reports rash; Denies Abrasions or wounds Neurologic Neurologic: Denies paresthesias or weakness EXAM Physical Exam Const Vital Signs: 08/11/22 08:19 08/11/22 09:51 Temperature 96.4 F L 97.8 F Temperature Source Temporal Oral Pulse Rate 85 72 Respiratory Rate 16 16 Blood Pressure 175/75 H 138/69 H Blood Pressure Mean 108 92 Pulse Ox 95 95 Oxygen Delivery Method Room Air Room Air Positive well nourished, well developed and obese General Appearance ED: well developed and NAD Nutritional Appearance: obese Neck full ROM and supple Chest Wall inspection of chest normal and palpation of chest normal Resp normal respiratory effort and clear to auscultation bilaterally Cardio regular rate, regular rhythm and peripheral pulses 2+ throughout Rate: Negative for tachycardic Heart Sounds: murmur systolic I/ soft left sternal border Back/Spine normal ROM and normal to inspection Extremity Extremity Narrative: Severe lymphedema both lower extremities, looks fairly symmetric. Changes of chronic stasis dermatitis in the right lower extremity, acute hyperemic changes with tenderness in the left lower leg. Full range of motion ankle and knee without difficulty. Left lower extremity does not necessarily appear to be more edematous than the right, but both are severe. All compartments are soft and nondistended. Neuro oriented x3, no focal motor deficits and no sensory deficits noted Sensorium / Orientation: alert Psych mental status grossly normal and thought process normal Skin no wounds Skin Narrative: Tender erythema stocking glove distribution left lower leg worse medially and posteriorly. No induration or palpable abscess, but the amount of lymphedema/obesity significantly limits the exam. No subcutaneous emphysema. Foot and knee/thigh not affected. No inguinal lymphadenopathy. MDM MDM MDM Narrative Medical decision making narrative: This looks like a cellulitis in her left lower leg, but it also has somewhat of the appearance of petechia/purpura although not as dark red as I would expect for that. She is tender throughout much of the erythema, so empiric Zosyn was given while I did a work-up including an x-ray of the left lower leg and an ul trasound of the left lower extremity, to evaluate for subcutaneous gas, which I do not see on the 2 view x-ray of the left tib-fib, and venous thromboembolism. The ultrasound is negative for that. Also did not see any collections to suggest an abscess, which I am at a low suspicion of clinically. Labs noted. I recommend admission because the patient has a fairly significant cellulitis, and because from the information available the seem to occur quickly. I am at a relatively low suspicion that this is necrotizing fasciitis at this time. Lab Data Attestation: I reviewed the patient's lab results. Labs: Laboratory Results - last 24 hr 08/11/22 08/11/22 08:45 08:45 WBC 10.1 RBC 4.63 Hgb 13.8 Hct 42.2 MCV 91.1 MCH 29.8 MCHC 32.7 RDW Std Deviation 46.7 H RDW Coeff of Erasmo 14.0 Plt Count 221 MPV 11.2 Immature Gran % (Auto) 0.500 Neut % (Auto) 88.3 H Lymph % (Auto) 3.8 L [place] % (Auto) 7.0 Eos % (Auto) 0.2 Baso % (Auto) 0.2 Absolute Neuts (auto) 8.9 H Absolute Lymphs (auto) 0.38 L Nucleated RBC % 0 Differential Comment SCANNED Sodium 140 Potassium 4.0 Chloride 104 Carbon Dioxide 29.0 Anion Gap 7 BUN 32 H Creatinine 1.05 H Estim Creat Clear Calc 34.40 Est GFR (MDRD) Af Amer 65 Est GFR (MDRD) Non-Af 54 L BUN/Creatinine Ratio 30.5 H Glucose 120 H Calcium 9.5 Radiography Diagnostic Testing: Clinical Impression(s) from Imaging Studies Tibia/Fibula X-Ray 08/11/22 09:25 IMPRESSION: Diffuse soft tissue swelling. Electronically Signed: Codey Caro MD at 9:40 EST , Discharge Plan Dx/Rx/DC Orders Clinical Impression: Cellulitis of left leg, Lymphedema of leg Disposition Disposition: [facility]
[2022-08-11 09:03] LABS: Absolute Lymphocyte Count 0.38 X10^3/uL (0.83-4.51); Absolute Neutrophil Count 8.9 X10^3/uL (2.0-7.7); Basophil# 0.02 X10^3/uL; Basophil% 0.2 % (0-1); Eosinophil# 0.02 X10^3/uL; Eosinophils% 0.2 % (0-5); Hematocrit 42.2 % (37-47); Hemoglobin 13.8 g/dL (12.0-15.0); Lymphocyte # 0.38 X10^3/ul (0.83-4.51); Lymphocyte % 3.8 % (19-41); Mean Corp Hgb Conc 32.7 g/dL (32-36); Mean Corpuscular Hgb 29.8 pg (27.0-32.0); Mean Corpuscular Volume 91.1 fL (81-99); Mean Platelet Vol. 11.2 fl (6.2-12.0); Monocyte# 0.71 X10^3/uL; NRBC Flagged by Analyzer 0 % (0-5); Neutrophil # 8.93 X10^3/uL (2.7-7.7); Neutrophil % 88.3 % (47-70); POSITIVE DIFFERENTIAL YES; Platelet Count 221 K/mm3 (150-450); RBC Distribution Width SD 46.7 fl (35.1-43.9); Red Blood Count 4.63 M/mm3 (4.2-5.4); White Blood Count 10.1 K/mm3 (4.4-11.0)
[2022-08-11 09:09] LABS: Differential Indicated SCAN CRITERIA MET
[2022-08-11 09:13] LABS: Anion Gap 7 (5-15); BUN 32 mg/dL (7-18); BUN/Creat Ratio 30.5 RATIO (10-20); Calcium,Total 9.5 mg/dL (8.5-10.1); Chloride 104 mmol/L (98-107); Creatinine, Serum 1.05 mg/dL (0.55-1.02); EST Glomerular Filtration Rate 54 mL/min (>60); Est Glom Filt Rate - Afr Amer 65 mL/min (>60); Glucose 120 mg/dL (74-106); Sodium Level 140 mmol/L (136-145)
--- NOTE | 2022-08-11 09:25 | RAD_ITS ---
STUDY: X-RAY - LEFT TIBIA AND FIBULA REASON FOR EXAM: Female, 77 years old. Swelling and redness. Lower extremity pain. TECHNIQUE: 2 view(s) of the tibia and fibula were obtained. COMPARISON: None. FINDINGS: Normal visualized tibia. Normal visualized fibula. The patient is status post total knee replacement. Small calcaneal spur. Marked degree of diffuse soft tissue swelling. RAD/Tibia & Fibula 2 Views IMPRESSION: Diffuse soft tissue swelling. Electronically Signed: Codey Caro MD at 9:40 EST ,
[2022-08-11 09:34] LABS: Differential Comment SCANNED
[2022-08-11 09:51] VITALS: BP 138/69; PULSE 72; RESP 16; TEMP 36.6; O2SAT 95
--- NOTE | 2022-08-11 10:43 | PCM.HP.STD ---
HPI - General General Date of Admission: 08/11/22 HPI Narrative CHELSEY MCGEE, is a 77 F who presents to the hospital with left lower extremity redness which she noticed this morning and that was not present yesterday. She denies any trauma to the leg there is sounds if she does wear SCDs at night at home to help with the edema. She is on Eliquis and a Doppler in the ER was negative for DVT. She does have chronic lymphedema and had cellulitis on the other leg a few years ago which looked fairly similar. She states that this morning she felt unwell though she does feel a little bit better at the moment. Denies any fevers or chills though at home her temperature was 99. In the ER she has no leukocytosis and is afebrile. [facility] Medical History Abscess of right groin Arthritis Degenerative joint disease Diastolic dysfunction Dyspnea on minimal exertion Edema of both legs Glaucoma Gout History of thyroid cancer Hypertension Iatrogenic hypothyroidism Left leg DVT (03/2018) Leg pain halfway current use of anticoagulant Lymphedema of leg Morbid obesity Swelling of lower extremity Home Medications fish, borage, flaxseed oils-omega 3,6,9 comb no.1 1,200 mg capsule 2,400 mg PO DAILY 01/07/16 [History Last Taken Unknown] timolol maleate 0.5 % eye drops 1 drp EACH EYE BID 01/07/16 [History Last Taken Unknown] allopurinol 100 mg tablet 100 mg PO BID 04/13/18 [History Last Taken Unknown] furosemide 40 mg tablet 40 mg PO DAILY 04/13/18 [History Last Taken Unknown] apixaban 5 mg tablet (Eliquis) 5 mg PO BID 04/28/18 [History Last Taken Unknown] levothyroxine 112 mcg tablet 112 mcg PO DAILY 05/16/18 [History Last Taken Unknown] metoprolol succinate 25 mg tablet,extended release 24 hr 25 mg PO BID 06/23/20 [History Last Taken Unknown] aspirin 81 mg tablet,delayed release 81 mg PO DAILY HEART HEALTH 08/11/22 [History Last Taken 08/11/22] losartan 50 mg tablet 50 mg PO DAILY BLOOD PRESSURE 08/11/22 [History Last Taken 08/11/22] Allergy/AdvReac Type Severity Reaction Status Date / Time Sulfa (Sulfonamide Allergy Rash Verified 07/02/20 10:08 Antibiotics) tramadol HCl [From Ultram] Allergy Hives Verified 07/02/20 10:08 olmesartan AdvReac Severe sob, Verified 07/02/20 10:08 lightheaded budesonide [From Symbicort] AdvReac Intermediate affected Verified 07/02/20 10:08 eyesight (pt has glaucoma) carvedilol [From Coreg] AdvReac Intermediate I hear my Verified 07/02/20 10:08 heart pounding in my ears formoterol [From Symbicort] AdvReac Intermediate affected Verified 07/02/20 10:08 eyesight (pt has glaucoma) Family History Mother CAD (coronary artery disease) Hypertension Daughter Cancer Sister Hypertension Sister Hypertension Surgical History (Updated 01/01/22 @ 05:32 by Chuy Miller) History Incision and drainage abscess right groin History of bilateral knee replacement History of bilateral oophorectomies History of cholecystectomy History of hysterectomy History of total thyroidectomy Status post right and left heart catheterization Social History Smoking Status: Never smoker second hand exposure: Yes alcohol intake: never caffeine: Yes (hot chocolate) Type: other Number of servings: 1 ROS Constitutional Constitutional: Denies chills, fatigue, fever(s) or malaise Eyes Eyes: Denies blurry vision ENT HEENT: Denies headache(s) or nasal discharge Cardiovascular Cardiovascular: Reports edema; Denies chest pain, dyspnea on exertion or syncope Respiratory/Chest Respiratory/Chest: Denies cough, shortness of breath at rest or shortness of breath with exertion Gastrointestinal Gastrointestinal: Denies constipation, diarrhea, nausea or vomiting Genitourinary Genitourinary: Denies dysuria Integumentary Integumentary: Reports rash Neurologic Neurologic: Denies focal weakness, numbness or tremor(s) Psychiatric Psychiatric: Denies anxiety or depression Vital Signs Vital Signs Vital Signs: 08/11/22 08:19 08/11/22 09:51 Temperature 96.4 F L 97.8 F Temperature Source Temporal Oral Pulse Rate 85 72 Respiratory Rate 16 16 Blood Pressure 175/75 H 138/69 H Blood Pressure Mean 108 92 Pulse Ox 95 95 Oxygen Delivery Method Room Air Room Air Weight Weight: 266 lb 1.6 oz Body Mass Index (BMI) 50.3 Physical Exam Narrative General: Alert, Oriented x3, Cooperative, No apparent distress HEENT: Atraumatic, PERRLA, EOMI, Normocephalic Oral: Moist Mucosa Neck: Supple, No JVD Lungs: Clear to auscultation, Normal air movement, No rhonchi, No wheeze, No rales Cardiovascular: Regular rate, Regular Rhythm, Normal S1, Normal S2, No murmurs Abdomen: Soft, Non Tender, Non-Distended, No Hepato-splenomegaly Extremities: Edema, Capillary Refill Less than 3 Seconds Skin: Bilateral lower extremity lymphedema with left lower extremity redness in the medial posterior calf mild tenderness to palpation Musculoskeletal: No Tenderness to Palpation of Joints or Extremities Neurological: Cranial nerves II-XII grossly intact, Motor Exam 5/5 strength throughout, Sensory exam intact to light touch and pain Psych/Mental Status: Normal Affect, Appropriate Results Lab / Micro Data Result Diagrams: 08/11/22 08:45 08/11/22 08:45 Labs: Laboratory Results - last 24 hr 08/11/22 08:45: WBC 10.1, RBC 4.63, Hgb 13.8, Hct 42.2, MCV 91.1, MCH 29.8, MCHC 32.7, RDW Std Deviation 46.7 H, RDW Coeff of Erasmo 14.0, Plt Count 221, MPV 11.2, Immature Gran % (Auto) 0.500, Neut % (Auto) 88.3 H, Lymph % (Auto) 3.8 L, [place] % (Auto) 7.0, Eos % (Auto) 0.2, Baso % (Auto) 0.2, Absolute Neuts (auto) 8.9 H, Absolute Lymphs (auto) 0.38 L, Nucleated RBC % 0, Differential Comment SCANNED 08/11/22 08:45: Sodium 140, Potassium 4.0, Chloride 104, Carbon Dioxide 29.0, Anion Gap 7, BUN 32 H, Creatinine 1.05 H, Estim Creat Clear Calc 34.40, Est GFR (MDRD) Af Amer 65, Est GFR (MDRD) Non-Af 54 L, BUN/Creatinine Ratio 30.5 H, Glucose 120 H, Calcium 9.5 Radiology Impression Tibia/Fibula X-Ray 08/11/22 09:25 IMPRESSION: Diffuse soft tissue swelling. Electronically Signed: Codey Caro MD at 9:40 EST , Assessment & Plan Assessment/Plan (1) Cellulitis of left leg: PLAN: Plan 1. Cellulitis of the left lower extremity ? No leukocytosis and is afebrile with digit start this morning ? We will place her on p.o. Keflex and see if she declares herself in the next 24 hours ? She has not been on any outpatient antibiotics ? X-ray of her leg does not show any gas or osteo ? Venous Doppler was negative for DVT and she does take her Eliquis as prescribed including this morning 2. Chronic diastolic CHF with lymphedema/HTN/HLD ? Blood pressure are stable can resume her home medications when verified ? Continue with diuresis 3. Hypothyroidism ? Stable ? Continue with Synthroid DVT: Eliquis Charges/Coding Visit Charges Inpatient E&M: 72253 Init Hosp L2
[2022-08-11 11:17] VITALS: BP 142/69; PULSE 82; RESP 16; TEMP 36.9; O2SAT 95
[2022-08-11] MEDS: Acetaminophen 500 MG Tablet 1000 MG PO (11:27)
[2022-08-11 12:34] VITALS: BP 144/45; PULSE 75; RESP 18; TEMP 36.6; O2SAT 98
[2022-08-11 12:35] VITALS: BMI 49.9
--- NOTE | 2022-08-11 12:57 | NURSING ---
dr guadalupe paged
[2022-08-11] MEDS: Cephalexin 500 MG Capsule PO ×2 (13:15→20:11)
[2022-08-11 20:06] VITALS: BP 133/51; PULSE 75; RESP 16; TEMP 36.7; O2SAT 97
[2022-08-11] MEDS: APIXABAN 5 MG TABLET PO (23:21)
[2022-08-12 05:04] VITALS: BP 128/44; PULSE 85; RESP 18; TEMP 36.8; O2SAT 95
[2022-08-12] MEDS: Levothyroxine 112 MCG Tablet PO (05:07)
[2022-08-12 07:43] LABS: Anion Gap 7 (5-15); BUN 28 mg/dL (7-18); BUN/Creat Ratio 28.4 RATIO (10-20); Calcium,Total 8.6 mg/dL (8.5-10.1); Chloride 106 mmol/L (98-107); Creatinine, Serum 0.98 mg/dL (0.55-1.02); EST Glomerular Filtration Rate 58 mL/min (>60); Est Glom Filt Rate - Afr Amer 71 mL/min (>60); Estimated Creatinine Clearance 36.85 ml/min; Glucose 104 mg/dL (74-106); Potassium 3.8 mmol/L (3.5-5.1); Sodium Level 141 mmol/L (136-145)
[2022-08-12 07:56] LABS: Absolute Lymphocyte Count 0.77 X10^3/uL (0.83-4.51); Absolute Neutrophil Count 4.7 X10^3/uL (2.0-7.7); Basophil# 0.04 X10^3/uL; Basophil% 0.7 % (0-1); Eosinophil# 0.06 X10^3/uL; Hematocrit 37.1 % (37-47); Hemoglobin 12.1 g/dL (12.0-15.0); Lymphocyte # 0.77 X10^3/ul (0.83-4.51); Lymphocyte % 12.5 % (19-41); Mean Corp Hgb Conc 32.6 g/dL (32-36); Mean Corpuscular Hgb 29.4 pg (27.0-32.0); Mean Corpuscular Volume 90.3 fL (81-99); Mean Platelet Vol. 10.1 fl (6.2-12.0); Monocyte# 0.52 X10^3/uL; Monocyte% 8.5 % (0-10); NRBC Flagged by Analyzer 0 % (0-5); Neutrophil # 4.74 X10^3/uL (2.7-7.7); Platelet Count 193 K/mm3 (150-450); RBC Distribution Width CV 14.2 % (11.6-14.6); RBC Distribution Width SD 46.5 fl (35.1-43.9); Red Blood Count 4.11 M/mm3 (4.2-5.4); White Blood Count 6.2 K/mm3 (4.4-11.0)
[2022-08-12] MEDS: Losartan Potassium 50 MG Tablet PO (08:14)
[2022-08-12] MEDS: Aspirin E.C. 81 MG Tablet PO (08:14)
[2022-08-12] MEDS: Allopurinol 100 MG Tablet PO (08:14)
[2022-08-12 08:15] VITALS: PULSE 80
[2022-08-12] MEDS: APIXABAN 5 MG TABLET PO (08:15)
[2022-08-12] MEDS: Furosemide 40 MG Tablet PO (08:15)
[2022-08-12] MEDS: Cephalexin 500 MG Capsule PO (08:15)
[2022-08-12] MEDS: Metoprolol(XL)Succ 25 MG Tablet PO (08:15)
[2022-08-12] MEDS: Timolol 0.5% 5ML OPTH.BTL 1 DRP EACH EYE (08:16)
--- NOTE | 2022-08-12 08:51 | DCINST_ITS ---
Discharge Instructions Diet Discharge Diet: Low fat / Low cholesterol and 1600 Calorie Control Diet Activity Discharge Activity: Return to Normal Activity Dressing / Incision Call your doctor if you observe: Fever of 101 or Higher, Shortness of breath, Dizziness, Fainting spells, Swelling in the ankles, Chest pain and Increased palpitations (irregular heartbeat) Follow Up Care Test Results: Test results from this visit will be discussed in further detail at your follow- up appointment, if applicable. Discharge Plan Admission Admit Date/Time: 08/11/22 10:34 Attending Provider: Sidney Tao Primary Care Provider: Fausto Noble Discharge Orders/Prescriptions Prescriptions: New cephalexin 500 mg Capsule 500 mg PO Q12 9 Days Qty: 18 0RF Continued allopurinol 100 mg tablet 100 mg PO BID furosemide 40 mg tablet 40 mg PO DAILY Eliquis 5 mg tablet 5 mg PO BID levothyroxine 112 mcg tablet 112 mcg PO DAILY timolol maleate 1 DROP drops 1 drp EACH EYE BID fish,bora,flax oils-[id number] 1,200 MG capsule 2,400 mg PO DAILY metoprolol succinate 25 MG tablet extended release 24 hr 25 mg PO BID aspirin 81 mg Tablet,Delayed Release (Dr/Ec) 81 mg PO DAILY losartan 50 mg tablet 50 mg PO DAILY Referrals / Follow Up: Fausto Noble PA [Primary Care Provider] - Within 1 Week Disposition Disposition (needs filled in before D/C Order can be placed): Home, Self Care
--- NOTE | 2022-08-12 08:54 | PCM.DC.SUM ---
Providers Date of Admission: 08/11/22 Primary Care Physician: DUNCAN Ross Reason For Visit: CELLULITIS Diagnosis Discharge Diagnosis (1) Cellulitis of left leg: Status: Acute Code(s): L03.116 - Cellulitis of left lower limb Medications at Discharge Home Medications fish, borage, flaxseed oils-omega 3,6,9 comb no.1 1,200 mg capsule 2,400 mg PO DAILY SUPPLEMENT 01/07/16 timolol maleate 0.5 % eye drops 1 drp EACH EYE BID GLAUCOMA 01/07/16 allopurinol 100 mg tablet 100 mg PO BID GOUT 04/13/18 furosemide 40 mg tablet 40 mg PO DAILY FLUID 04/13/18 apixaban 5 mg tablet (Eliquis) 5 mg PO BID BLOOD THINNER 04/28/18 levothyroxine 112 mcg tablet 112 mcg PO DAILY THYROID 05/16/18 metoprolol succinate 25 mg tablet,extended release 24 hr 25 mg PO BID BLOOD PRESSURE 06/23/20 aspirin 81 mg tablet,delayed release 81 mg PO DAILY HEART HEALTH 08/11/22 losartan 50 mg tablet 50 mg PO DAILY BLOOD PRESSURE 08/11/22 cephalexin 500 mg capsule 500 mg PO Q12 9 days #18 caps 08/12/22 Hospital Course Operations None Procedures None Summary of Care Provided Minutes Spent on Discharge: 32 Hospital Course: Per HPI: CHELSEY MCGEE, is a 77 F who presents to the hospital with left lower extremity redness which she noticed this morning and that was not present yesterday.? She denies any trauma to the leg there is sounds if she does wear SCDs at night at home to help with the edema.? She is on Eliquis and a Doppler in the ER was negative for DVT.? She does have chronic lymphedema and had cellulitis on the other leg a few years ago which looked fairly similar.? She states that this morning she felt unwell though she does feel a little bit better at the moment.? Denies any fevers or chills though at home her temperature was 99.? In the ER she has no leukocytosis and is afebrile. Hospital Course: 1. Left lower extremity cellulitis?77-year-old female presented to the hospital with acute onset redness, venous Doppler was negative for blood clot as she is currently on full dose Eliquis. She did not have a white count or a fever but given the appearance and the rapidity of onset the decision was made to admit her as an obs. Today she remains afebrile without a leukocytosis despite being on oral antibiotics. And she feels that the rash looks a little bit better. We will continue with Keflex 500 mg p.o. twice daily secondary to her creatinine clearance, to complete a 10-day course. I discussed with her the plan for discharge today she expressed understanding of the risk benefits of going home and would like to go home today. 2. Chronic diastolic CHF with lymphedema, hypertension, hyperlipidemia, hypothyroidism are all chronic medical conditions which complicate her care. Her home medications were continued where appropriate Physical Exam Narrative General: Alert, Oriented x3, Cooperative, No apparent distress HEENT: Atraumatic, PERRLA, EOMI, Normocephalic Oral: Moist Mucosa Neck: Supple, No JVD Lungs: Clear to auscultation, Normal air movement, No rhonchi, No wheeze, No rales Cardiovascular: Regular rate, Regular Rhythm, Normal S1, Normal S2, No murmurs Abdomen: Soft, Non Tender, Non-Distended, No Hepato-splenomegaly Extremities: Edema, Capillary Refill Less than 3 Seconds Skin: Bilateral lower extremity lymphedema with left lower extremity redness in the medial posterior calf mild tenderness to palpation Musculoskeletal: No Tenderness to Palpation of Joints or Extremities Neurological: Cranial nerves II-XII grossly intact, Motor Exam 5/5 strength throughout, Sensory exam intact to light touch and pain Psych/Mental Status: Normal Affect, Appropriate Weight / BMI Weight Weight: 264 lb 6.4 oz Body Mass Index (BMI) 49.9 ABG / Lab / Microbiology Data Result Diagrams: 08/12/22 07:45 08/12/22 06:36 Laboratory: Laboratory Results - last 24 hr 08/11/22 08:45: WBC 10.1, RBC 4.63, Hgb 13.8, Hct 42.2, MCV 91.1, MCH 29.8, MCHC 32.7, RDW Std Deviation 46.7 H, RDW Coeff of Erasmo 14.0, Plt Count 221, MPV 11.2, Immature Gran % (Auto) 0.500, Neut % (Auto) 88.3 H, Lymph % (Auto) 3.8 L, [place] % (Auto) 7.0, Eos % (Auto) 0.2, Baso % (Auto) 0.2, Absolute Neuts (auto) 8.9 H, Absolute Lymphs (auto) 0.38 L, Nucleated RBC % 0, Differential Comment SCANNED 08/11/22 08:45: Sodium 140, Potassium 4.0, Chloride 104, Carbon Dioxide 29.0, Anion Gap 7, BUN 32 H, Creatinine 1.05 H, Estim Creat Clear Calc 34.40, Est GFR (MDRD) Af Amer 65, Est GFR (MDRD) Non-Af 54 L, BUN/Creatinine Ratio 30.5 H, Glucose 120 H, Calcium 9.5 08/12/22 06:36: WBC Cancelled, Corrected WBC Cancelled, RBC Cancelled, Hgb Cancelled, Hct Cancelled, MCV Cancelled, MCH Cancelled, MCHC Cancelled, RDW Std Deviation Cancelled, RDW Coeff of Erasmo Cancelled, Plt Count Cancelled, MPV Cancelled, Immature Gran % (Auto) Cancelled, Neut % (Auto) Cancelled, Lymph % (Auto) Cancelled, [place] % (Auto) Cancelled, Eos % (Auto) Cancelled, Baso % (Auto) Cancelled, Absolute Neuts (auto) Cancelled, Absolute Lymphs (auto) Cancelled, Total Counted Cancelled, Neutrophils % (Manual) Cancelled, Band Neutrophils % Cancelled, Lymphocytes % (Manual) Cancelled, Monocytes % (Manual) Cancelled, Eosinophils % (Manual) Cancelled, Basophils % (Manual) Cancelled, Metamyelocytes % Cancelled, Myelocytes % Cancelled, Promyelocytes % Cancelled, Blast Cells % Cancelled, Plasma Cell % (Manual) Cancelled, Other Cells % Cancelled, Nucleated RBC % Cancelled, Nucleated RBCs/100 WBC Cancelled, Differential Comment Cancelled, Diff Path Review Cancelled, Hypersegmented Neuts Cancelled, Atypical Lymphocytes Cancelled, Reactive Lymphocytes Cancelled, Smudge Cells Cancelled, Toxic Granulation Cancelled, Toxic Vacuolation Cancelled, Dohle Bodies Cancelled, Lisa Rods Cancelled, Platelet Estimate Cancelled, Plt Morphology Comment Cancelled, RBC Morphology Cancelled, Polychromasia Cancelled, Hypochromasia Cancelled, Poikilocytosis Cancelled, Basophilic Stippling Cancelled, Anisocytosis Cancelled, Microcytosis Cancelled, Macrocytosis Cancelled, Spherocytes Cancelled, Sickle Cells Cancelled, Target Cells Cancelled, Tear Drop Cells Cancelled, Ovalocytes Cancelled, Stomatocytes Cancelled, [place] Bodies Cancelled, [place] Cells Cancelled, Bite Cells Cancelled, Crenated Cell Cancelled, Acanthocytes (Spur) Cancelled, Rouleaux Cancelled, Schistocytes Cancelled 08/12/22 06:36: Sodium 141, Potassium 3.8, Chloride 106, Carbon Dioxide 28.0, Anion Gap 7, BUN 28 H, Creatinine 0.98, Estim Creat Clear Calc 36.85, Est GFR (MDRD) Af Amer 71, Est GFR (MDRD) Non-Af 58 L, BUN/Creatinine Ratio 28.4 H, Glucose 104, Calcium 8.6 08/12/22 07:45: WBC 6.2, RBC 4.11 L, Hgb 12.1, Hct 37.1, MCV 90.3, MCH 29.4, MCHC 32.6, RDW Std Deviation 46.5 H, RDW Coeff of Erasmo 14.2, Plt Count 193, MPV 10.1, Immature Gran % (Auto) 0.300, Neut % (Auto) 77.0 H, Lymph % (Auto) 12.5 L, [place] % (Auto) 8.5, Eos % (Auto) 1.0, Baso % (Auto) 0.7, Absolute Neuts (auto) 4.7, Absolute Lymphs (auto) 0.77 L, Nucleated RBC % 0 Radiography Diagnostic Testing: Radiology Impression Venous Doppler Study 08/11/22 08:36 Interpretation Summary Chronic vein wall thickening is noted in the left common femoral, femoral, popliteal, tibioperoneal trunk the venous flow patterns appear normal. Patent and compressible left great saphenous vein. Abbreviated COVID-19 protocol utilized Fair technical quality secondary to body habitus and edema Ordering Physician: Chetan Mauro Performed By: Justin Moulton RVT Tibia/Fibula X-Ray 08/11/22 09:25 IMPRESSION: Diffuse soft tissue swelling. Electronically Signed: Codey Caro MD at 9:40 EST , D/C Instructions Discharge Diet: Low fat / Low cholesterol and 1600 Calorie Control Diet Call your doctor if you observe: Fever of 101 or Higher, Shortness of breath, Dizziness, Fainting spells, Swelling in the ankles, Chest pain and Increased palpitations (irregular heartbeat) Meaningful Use Info Meaningful Use Diagnoses (Choose all that apply): None applicable Discharge Plan Admission Admit Date/Time: 08/11/22 10:34 Attending Provider: Sidney Tao Primary Care Provider: Fausto Noble Discharge Orders/Prescriptions Prescriptions: New cephalexin 500 mg Capsule 500 mg PO Q12 9 Days Qty: 18 0RF Continued allopurinol 100 mg tablet 100 mg PO BID furosemide 40 mg tablet 40 mg PO DAILY Eliquis 5 mg tablet 5 mg PO BID levothyroxine 112 mcg tablet 112 mcg PO DAILY timolol maleate 1 DROP drops 1 drp EACH EYE BID fish,bora,flax oils-om3,6,9no1 1,200 MG capsule 2,400 mg PO DAILY metoprolol succinate 25 MG tablet extended release 24 hr 25 mg PO BID aspirin 81 mg Tablet,Delayed Release (Dr/Ec) 81 mg PO DAILY losartan 50 mg tablet 50 mg PO DAILY Referrals / Follow Up: Fausto Noble PA [Primary Care Provider] - Within 1 Week Disposition Disposition (needs filled in before D/C Order can be placed): Home, Self Care Charges/Coding Visit Charges Inpatient E&M: 70989 Disch Hosp >30min
[2022-08-12 09:11] VITALS: BP 130/53; PULSE 80; RESP 18; TEMP 36.6; O2SAT 95
[2022-08-12 09:16] VITALS: BP 130/58; PULSE 80; RESP 18; TEMP 36.6; O2SAT 95
--- NOTE | 2022-08-12 10:54 | PHA.DC.MC ---
Pharmacy Service has performed discharge medication reconciliation and counseling for this patient. 1. CEPHALEXIN 500MG PO Q12 X 9 DAYS The patient's discharge medication list was reviewed for discrepancies and discrepancies were resolved. Home Medications fish, borage, flaxseed oils-omega 3,6,9 comb no.1 1,200 mg capsule 2,400 mg PO DAILY SUPPLEMENT 01/07/16 timolol maleate 0.5 % eye drops 1 drp EACH EYE BID GLAUCOMA 01/07/16 allopurinol 100 mg tablet 100 mg PO BID GOUT 04/13/18 furosemide 40 mg tablet 40 mg PO DAILY FLUID 04/13/18 apixaban 5 mg tablet (Eliquis) 5 mg PO BID BLOOD THINNER 04/28/18 levothyroxine 112 mcg tablet 112 mcg PO DAILY THYROID 05/16/18 metoprolol succinate 25 mg tablet,extended release 24 hr 25 mg PO BID BLOOD PRESSURE 06/23/20 aspirin 81 mg tablet,delayed release 81 mg PO DAILY HEART HEALTH 08/11/22 losartan 50 mg tablet 50 mg PO DAILY BLOOD PRESSURE 08/11/22 cephalexin 500 mg capsule 500 mg PO Q12 9 days #18 caps 08/12/22 The patient was counseled on the following discharge medications and changes in medications for homegoing were reviewed. The Reason for Use, instructions for use, and potential side effects were reviewed for all new medications. The patient's questions regarding all of their medications were answered. The patient was able to verbally demonstrate an understanding of their discharge medications.
== END 2022-08-12 12:54 | disposition home or self-care (01) ==
LOC: ED 10:23 → MS3 10:54
PROVIDERS: Admitting Provider Family Medicine; Emergency Provider Emergency Medicine; PCP Physician Assistant; Visit Provider Family Medicine
DX: L03.116 Cellulitis of left lower limb (principal); I11.0 Hypertensive heart disease with heart failure; I50.32 Chronic diastolic (congestive) heart failure; E78.5 Hyperlipidemia, unspecified; E89.0 Postprocedural hypothyroidism; I89.0 Lymphedema, not elsewhere classified; Z79.82 Long term (current) use of aspirin; Z79.899 Other long term (current) drug therapy; Z79.890 Hormone replacement therapy; Z79.01 Long term (current) use of anticoagulants; Z86.718 Personal history of other venous thrombosis and embolism
CPT/HCPCS: 36415; 73590; 80048; 85025; 93971; 96365; 99221; 99284; A4216; G0378

== ENCOUNTER 2022-09-13 17:45 | Emergency (ER) | payer MEDICARE, OTHER, SELFPAY ==
[2022-09-13 17:46] VITALS: BP 175/88; PULSE 72; RESP 18; TEMP 36.1; O2SAT 100; BMI 49.1
--- NOTE | 2022-09-13 18:06 | CT_ITS ---
STUDY: CT BRAIN WITHOUT CONTRAST REASON FOR EXAM: Female, 77 years old. head injury RADIATION DOSAGE (If Supplied By Facility): CTDIvol = ( 44.99 ) mGy, DLP = ( 812.98 ) mGycm TECHNIQUE: Transaxial CT imaging of the brain was performed without administration of intravenous contrast material. Individualized dose optimization techniques were used for this CT. COMPARISON: No relevant priors. FINDINGS: Normal soft tissue structures. Normal calvarium. Normal size ventricles and extra-axial spaces for the patient''s age. Normal white matter tracts of the cerebral hemispheres. Normal basal ganglia and thalami. Normal brainstem. Normal cerebellum. There is no intracranial hemorrhage. There are no findings of an acute ischemic infarction. Left maxillary sinus mucosal thickening. CT/Brain/Head without Contrast IMPRESSION: No acute intracranial pathology of the brain. Electronically Signed: Rich Romero DO at 18:45 EDT ,
--- NOTE | 2022-09-13 18:11 | EX.ED.GENINJ ---
HPI History of Present Illness Chief Complaint: Fall Narrative Narrative: 77-year-old female presenting after fall. She states she fell and landed on her face. She states its not significantly painful because she was in the grass. She did not injure anything else. No loss of consciousness. No nausea, vomiting, dizziness, lightheadedness. No visual complaints. Patient denies neck pain. Patient states that due to the lower extremity swelling that she has she typically would not be able to get up on her own and this was the case today. She laid in the grass and tried to scoot closer to her walker. She had to wait for somebody to come by so she can yell for help. Patient is on Eliquis. [facility] Medical History Abscess of right groin Arthritis Degenerative joint disease Diastolic dysfunction Dyspnea on effort Dyspnea on minimal exertion Edema of both legs Glaucoma Gout History of thyroid cancer Hypertension Iatrogenic hypothyroidism Left leg DVT (03/2018) Leg pain care home current use of anticoagulant Lymphedema of leg Morbid obesity Swelling of lower extremity Home Medications fish, borage, flaxseed oils-omega 3,6,9 comb no.1 1,200 mg capsule 2,400 mg PO DAILY SUPPLEMENT 01/07/16 [History Last Taken 08/11/22] timolol maleate 0.5 % eye drops 1 drp EACH EYE BID GLAUCOMA 01/07/16 [History Last Taken 08/10/22] allopurinol 100 mg tablet 100 mg PO BID GOUT 04/13/18 [History Last Taken 08/10/22] furosemide 40 mg tablet 40 mg PO DAILY FLUID 04/13/18 [History Last Taken 08/11/22] apixaban 5 mg tablet (Eliquis) 5 mg PO BID BLOOD THINNER 04/28/18 [History Last Taken 08/11/22] levothyroxine 112 mcg tablet 112 mcg PO DAILY THYROID 05/16/18 [History Last Taken 08/11/22] metoprolol succinate 25 mg tablet,extended release 24 hr 25 mg PO BID BLOOD PRESSURE 06/23/20 [History Last Taken 08/11/22] aspirin 81 mg tablet,delayed release 81 mg PO DAILY HEART HEALTH 08/11/22 [History Last Taken 08/11/22] losartan 50 mg tablet 50 mg PO DAILY BLOOD PRESSURE 08/11/22 [History Last Taken 08/11/22] cephalexin 500 mg capsule 500 mg PO Q12 9 days #18 caps 08/12/22 [Rx Last Taken Unknown] Allergy/AdvReac Type Severity Reaction Status Date / Time Sulfa (Sulfonamide Allergy Rash Verified 09/13/22 17:49 Antibiotics) tramadol HCl [From Ultram] Allergy Hives Verified 09/13/22 17:49 olmesartan AdvReac Severe sob, Verified 09/13/22 17:49 lightheaded budesonide [From Symbicort] AdvReac Intermediate affected Verified 09/13/22 17:49 eyesight (pt has glaucoma) carvedilol [From Coreg] AdvReac Intermediate I hear my Verified 09/13/22 17:49 heart pounding in my ears formoterol [From Symbicort] AdvReac Intermediate affected Verified 09/13/22 17:49 eyesight (pt has glaucoma) Family History Mother CAD (coronary artery disease) Hypertension Daughter Cancer Sister Hypertension Sister Hypertension Surgical History History Incision and drainage abscess right groin History of bilateral knee replacement History of bilateral oophorectomies History of cholecystectomy History of hysterectomy History of total thyroidectomy Status post right and left heart catheterization Social History Smoking Status: Never smoker second hand exposure: Yes alcohol intake: never caffeine: Yes (hot chocolate) Type: other Number of servings: 1 ROS ROS ED Constitutional Constitutional ED: Denies chills, fever(s) or sweats Eyes Eyes: Denies blurry vision or change in vision ENT ENT ED: Denies ear pain or sore throat Cardiovascular Cardiovascular: Denies chest pain, palpitations or racing heartbeat Respiratory/Chest Respiratory/Chest: Denies cough, dyspnea or sputum Gastrointestinal Gastrointestinal: Denies abdominal pain, constipation, diarrhea, nausea or vomiting Genitourinary Genitourinary ED: Denies dysuria, hematuria or urinary frequency Musculoskeletal Musculoskeletal: Denies arthralgias, myalgias or neck pain Integumentary Reports other Details: Superficial abrasion to the forehead. ; Denies abscess or rash Neurologic Neurologic: Denies headache(s), paresthesias or weakness Psychiatric Psychiatric: Denies anxiety, depression, suicidal ideation or suicidal thoughts Endocrine Endocrinology: Denies polydipsia or polyuria EXAM Physical Exam Const Vital Signs: 09/13/22 17:46 09/13/22 18:11 Temperature 97 F L Temperature Source Temporal Pulse Rate 72 Respiratory Rate 18 Respiratory Effort Normal Non-Labored Respiratory Depth Normal Respiratory Pattern Normal Blood Pressure 175/88 H Blood Pressure Mean 117 Pulse Ox 100 Oxygen Delivery Method Room Air Positive well nourished General Appearance ED: NAD HEENT HEENT Narrative: Superficial abrasion to the forehead extending onto the bridge of the nose. Nasal septum midline. No nasal septal hematoma. Cheeks nontender. No malocclusion. No dental injury. No extraocular muscle entrapment. Eyes PERRL and EOMs intact bilaterally Resp normal respiratory effort Back/Spine normal to inspection Extremity General Extremety ED: Yes edema General Extremity: edema Neuro oriented x3, CN's II-XII intact bilaterally, moves all extremities, no focal motor deficits and no sensory deficits noted Sensorium / Orientation: alert Psych mental status grossly normal Skin Skin Narrative: As described above MDM MDM MDM Narrative Medical decision making narrative: Patient mechanical fall. She did hit her face on the ground. She is a superficial abrasion but no other signs of trauma. She has no neck pain. No focal neurologic deficits or lateralizing signs or symptoms. Patient is on Eliquis so I will obtain a CT of the brain. She has no other injuries. CT brain negative on my interpretation. Impression: 1. Mechanical fall 2. Facial contusion 3. Closed head and Radiography Diagnostic Testing: Clinical Impression(s) from Imaging Studies Brain CT 09/13/22 18:06 IMPRESSION: No acute intracranial pathology of the brain. Electronically Signed: Rich Romero DO at 18:45 EDT Reading Location ID and State: [facility] / [place] Tel [phone], Service support , Discharge Plan Triage Chief Complaint: Fall ED Provider: Preet Wood Dx/Rx/DC Orders Instructions: ED Head Injury (Adult), ED Fall Prevention Prescriptions: No Action allopurinol 100 mg tablet 100 mg PO BID furosemide 40 mg tablet 40 mg PO DAILY Eliquis 5 mg tablet 5 mg PO BID levothyroxine 112 mcg tablet 112 mcg PO DAILY timolol maleate 1 DROP drops 1 drp EACH EYE BID fish,bora,flax oils-om3,6,9no1 1,200 MG capsule 2,400 mg PO DAILY metoprolol succinate 25 MG tablet extended release 24 hr 25 mg PO BID aspirin 81 mg Tablet,Delayed Release (Dr/Ec) 81 mg PO DAILY losartan 50 mg tablet 50 mg PO DAILY cephalexin 500 mg Capsule 500 mg PO Q12 9 Days Qty: 18 0RF Primary Care Provider: Fausto Noble Referrals: Fausto Noble PA [Primary Care Provider] - Disposition Disposition: Home, Self Care
[2022-09-13 19:08] VITALS: BP 163/78; PULSE 88; RESP 16
== END 2022-09-13 19:09 | disposition home or self-care (01) ==
PROVIDERS: Emergency Provider Student in an Organized Health Care Education/Training Program; PCP Physician Assistant; Visit Provider Student in an Organized Health Care Education/Training Program
DX: S00.83XA Contusion of other part of head, initial encounter (principal); W19.XXXA Unspecified fall, initial encounter; I10 Essential (primary) hypertension; S09.90XA Unspecified injury of head, initial encounter; Z79.01 Long term (current) use of anticoagulants; Z79.899 Other long term (current) drug therapy; Z86.718 Personal history of other venous thrombosis and embolism; M10.9 Gout, unspecified; R60.0 Localized edema; Z79.82 Long term (current) use of aspirin
CPT/HCPCS: 70450; 99282

== ENCOUNTER 2022-11-12 09:08 | Emergency (ER) | payer MEDICARE, OTHER, SELFPAY ==
[2022-11-12] VITALS (9 sets, daily range): BP systolic 106–130; BP diastolic 44–64; PULSE 68–85; RESP 11–20; TEMP 36.4–36.7; O2SAT 98–100; BMI 48.9
[2022-11-12 10:07] LABS: Absolute Lymphocyte Count 0.44 X10^3/uL (0.83-4.51); Basophil# 0.01 X10^3/uL; Basophil% 0.1 % (0-1); Eosinophil# 0.01 X10^3/uL; Eosinophils% 0.1 % (0-5); Hematocrit 36.2 % (37-47); Hemoglobin 11.8 g/dL (12.0-15.0); Lymphocyte # 0.44 X10^3/ul (0.83-4.51); Mean Corp Hgb Conc 32.6 g/dL (32-36); Mean Corpuscular Hgb 29.5 pg (27.0-32.0); Mean Corpuscular Volume 90.5 fL (81-99); Mean Platelet Vol. 10.4 fl (6.2-12.0); Monocyte# 0.49 X10^3/uL; Monocyte% 4.5 % (0-10); NRBC Flagged by Analyzer 0 % (0-5); Neutrophil # 9.96 X10^3/uL (2.7-7.7); Neutrophil % 90.9 % (47-70); POSITIVE DIFFERENTIAL YES; Platelet Count 202 K/mm3 (150-450); RBC Distribution Width CV 14.9 % (11.6-14.6); RBC Distribution Width SD 49.7 fl (35.1-43.9)
[2022-11-12 10:10] LABS: Differential Indicated SCAN CRITERIA MET
[2022-11-12 10:13] LABS: Anion Gap 7 (5-15); BUN 70 mg/dL (7-18); BUN/Creat Ratio 40.9 RATIO (10-20); Calcium,Total 9.8 mg/dL (8.5-10.1); Chloride 100 mmol/L (98-107); Creatinine, Serum 1.71 mg/dL (0.55-1.02); EST Glomerular Filtration Rate 31 mL/min (>60); Est Glom Filt Rate - Afr Amer 37 mL/min (>60); Estimated Creatinine Clearance 21.12 ml/min; Glucose 124 mg/dL (74-106); Potassium 3.1 mmol/L (3.5-5.1); Sodium Level 137 mmol/L (136-145)
[2022-11-12 10:25] LABS: Lactic Acid 2.3 mmol/L (0.4-1.9)
--- NOTE | 2022-11-12 10:27 | ED.RN ---
LACTIC ACID 2.3. AWARE
--- NOTE | 2022-11-12 10:43 | EX.ED.DYSGE1 ---
HPI History of Present Illness Chief Complaint: Lower Extremity Injury Informant: patient Narrative Narrative: Patient presents with concern for cellulitis of her left lower extremity. Patient states she started with erythema worsening on her left leg last evening. Is a little bit more today. It is above the knee medially. It hurts mostly when it is pressed on it and does not really hurt much without that. She does not want anything for pain. No fevers chills or sweats. She is not nauseated and has not vomited. She has had this before as she has chronic lymphedema. She has responded to outpatient antibiotics. She states she does not feel systemically ill. [facility] Medical History Abscess of right groin Arthritis Degenerative joint disease Diastolic dysfunction Dyspnea on effort Dyspnea on minimal exertion Edema of both legs Glaucoma Gout History of thyroid cancer Hypertension Iatrogenic hypothyroidism Left leg DVT (03/2018) Leg pain long-term current use of anticoagulant Lymphedema of leg Morbid obesity Swelling of lower extremity Home Medications fish, borage, flaxseed oils-omega 3,6,9 comb no.1 1,200 mg capsule 2,400 mg PO DAILY SUPPLEMENT 01/07/16 [History Last Taken 08/11/22] timolol maleate 0.5 % eye drops 1 drp EACH EYE BID GLAUCOMA 01/07/16 [History Last Taken 08/10/22] allopurinol 100 mg tablet 100 mg PO BID GOUT 04/13/18 [History Last Taken 08/10/22] furosemide 40 mg tablet 40 mg PO DAILY FLUID 04/13/18 [History Last Taken 08/11/22] apixaban 5 mg tablet (Eliquis) 5 mg PO BID BLOOD THINNER 04/28/18 [History Last Taken 08/11/22] levothyroxine 112 mcg tablet 112 mcg PO DAILY THYROID 05/16/18 [History Last Taken 08/11/22] metoprolol succinate 25 mg tablet,extended release 24 hr 25 mg PO BID BLOOD PRESSURE 06/23/20 [History Last Taken 08/11/22] aspirin 81 mg tablet,delayed release 81 mg PO DAILY HEART HEALTH 08/11/22 [History Last Taken 08/11/22] losartan 50 mg tablet 50 mg PO DAILY BLOOD PRESSURE 08/11/22 [History Last Taken 08/11/22] cephalexin 500 mg capsule 500 mg PO Q12 9 days #18 caps 08/12/22 [Rx Last Taken Unknown] cephalexin 500 mg capsule 500 mg PO Q6 #40 CAPSULES 11/12/22 [Rx Last Taken Unknown] Allergy/AdvReac Type Severity Reaction Status Date / Time Sulfa (Sulfonamide Allergy Rash Verified 11/12/22 09:09 Antibiotics) tramadol HCl [From Ultram] Allergy Hives Verified 11/12/22 09:09 olmesartan AdvReac Severe sob, Verified 11/12/22 09:09 lightheaded budesonide [From Symbicort] AdvReac Intermediate affected Verified 11/12/22 09:09 eyesight (pt has glaucoma) carvedilol [From Coreg] AdvReac Intermediate I hear my Verified 11/12/22 09:09 heart pounding in my ears formoterol [From Symbicort] AdvReac Intermediate affected Verified 11/12/22 09:09 eyesight (pt has glaucoma) Family History Mother CAD (coronary artery disease) Hypertension Daughter Cancer Sister Hypertension Sister Hypertension Surgical History History Incision and drainage abscess right groin History of bilateral knee replacement History of bilateral oophorectomies History of cholecystectomy History of hysterectomy History of total thyroidectomy Status post right and left heart catheterization Social History Smoking Status: Never smoker second hand exposure: Yes alcohol intake: never caffeine: Yes (hot chocolate) Type: other Number of servings: 1 ROS ROS ED Constitutional Constitutional ED: Denies chills, fever(s) or subjective ENT ENT ED: Denies rhinorrhea or sore throat Cardiovascular Cardiovascular: Denies chest pain or palpitations Respiratory/Chest Respiratory/Chest: Denies cough or dyspnea Gastrointestinal Gastrointestinal: Denies nausea or vomiting Musculoskeletal Musculoskeletal: Denies myalgias Integumentary Reports rash Neurologic Neurologic: Denies paresthesias or weakness Hematologic/Lymphatic Hematologic/Lymphatic: Reports easy bleeding, easy bruising and other Details: Patient is on Eliquis. Allergic/Immunologic Allergic/Immunologic ED: Denies urticaria EXAM Physical Exam Narrative Exam Narrative: Patient is awake alert sitting comfortably in bed. She no acute distress. Nontoxic in appearance. HEENT shows moist mucous membranes. No trauma. Neck is supple Heart is regular. No tachycardia. Her heart sounds were regular at this time. Lungs are clear bilaterally. Breathing is easy and unlabored. Saturations are normal at 99% on room air showing no hypoxia. Abdomen is mildly obese but otherwise benign. Extremities do show bilateral lower extremity edema. She has erythema anterior shins on both sides but on the left it streaks above this and comes slightly above the knee medially. It is warm and it is mildly tender. No subcutaneous air. No cord. This is outlined in ink. No sign of involvement of the foot. Capillary refill pulses are normal. Neurologically she is awake alert and appropriate. Const Vital Signs: 11/12/22 09:09 11/12/22 09:35 11/12/22 10:11 Temperature 97.6 F L 97.8 F Temperature Source Temporal Oral Pulse Rate 72 68 Respiratory Rate 14 15 Blood Pressure 130/64 H 119/52 L Blood Pressure Mean 86 74 Pulse Ox 100 99 Oxygen Delivery Method Room Air Room Air Room Air 11/12/22 10:15 11/12/22 11:10 11/12/22 11:33 Temperature 98.1 F Temperature Source Oral Pulse Rate 70 85 Respiratory Rate 15 11 L 20 H Blood Pressure 112/44 L 106/51 L Blood Pressure Mean 66 69 Pulse Ox 99 99 99 Oxygen Delivery Method Room Air Room Air Room Air 11/12/22 13:25 11/12/22 15:01 11/12/22 15:05 Temperature Temperature Source Pulse Rate 72 73 73 Respiratory Rate 13 17 17 Blood Pressure 122/47 H 115/50 L 115/50 L Blood Pressure Mean 72 71 Pulse Ox 99 98 98 Oxygen Delivery Method Room Air Room Air 11/12/22 15:07 Temperature Temperature Source Pulse Rate 73 Respiratory Rate 17 Blood Pressure 115/50 L Blood Pressure Mean Pulse Ox 98 Oxygen Delivery Method MDM MDM MDM Narrative Medical decision making narrative: Patient's CBC shows mild anemia but normal platelets and white count. Patient's electrolytes do show a rise of her creatinine. But I do not think this is due to her cellulitis. I think this is likely due to the Lasix that she is on. She has been eating and drinking and has no clinical reason to be acutely dehydrated. I think it is reasonable that she even hold the Lasix for a few days as this is really prescribed for edema and not prescribed for congestive heart failure. Her lactic acid was mildly elevated. This might be partially due to her elevated creatinine as well as the infection. But she has no fevers tachycardia tachypnea or hypoxia. She does not represent sepsis. I discussed options with the patient. She would prefer to try to go home. I explained that she does have higher risks for outpatient therapy because of her chronic edema. But she is not diabetic and her blood sugar is near normal now. She has successfully been treated as an outpatient before. We will try a dose of vancomycin here. As long as she still feels well we will get her home on antibiotics. She thinks it was cephalexin that helped her last time. Patient received vancomycin here. No acute change. No nausea. We will get her home as planned. We discussed reasons to return and that she does have a potential risk of returning but she would like to try outpatient therapy and that is reasonable. Lab Data Labs: Laboratory Results - last 24 hr 11/12/22 11/12/22 11/12/22 09:40 09:40 09:40 WBC 11.0 RBC 4.00 L Hgb 11.8 L Hct 36.2 L MCV 90.5 MCH 29.5 MCHC 32.6 RDW Std Deviation 49.7 H RDW Coeff of Erasmo 14.9 H Plt Count 202 MPV 10.4 Immature Gran % (Auto) 0.400 Neut % (Auto) 90.9 H Lymph % (Auto) 4.0 L [place] % (Auto) 4.5 Eos % (Auto) 0.1 Baso % (Auto) 0.1 Absolute Neuts (auto) 10.0 H Absolute Lymphs (auto) 0.44 L Nucleated RBC % 0 Differential Comment COMMENT Sodium 137 Potassium 3.1 L Chloride 100 Carbon Dioxide 30.0 Anion Gap 7 BUN 70 H Creatinine 1.71 H Estim Creat Clear Calc 21.12 Est GFR (MDRD) Af Amer 37 L Est GFR (MDRD) Non-Af 31 L BUN/Creatinine Ratio 40.9 H Glucose 124 H Lactic Acid 2.3 H* Calcium 9.8 Discharge Plan Triage Chief Complaint: Lower Extremity Injury ED Provider: Dany Ramirez Dx/Rx/DC Orders Clinical Impression: Cellulitis of left leg, Elevated serum creatinine Instructions: ED Cellulitis Prescriptions: New cephalexin [cephalexin] 500 mg capsule 500 mg PO Q6 Qty: 40 0RF No Action allopurinol 100 mg tablet 100 mg PO BID furosemide 40 mg tablet 40 mg PO DAILY Eliquis 5 mg tablet 5 mg PO BID levothyroxine 112 mcg tablet 112 mcg PO DAILY timolol maleate 1 DROP drops 1 drp EACH EYE BID fish,bora,flax oils-[id number] 1,200 MG capsule 2,400 mg PO DAILY metoprolol succinate 25 MG tablet extended release 24 hr 25 mg PO BID aspirin 81 mg Tablet,Delayed Release (Dr/Ec) 81 mg PO DAILY losartan 50 mg tablet 50 mg PO DAILY cephalexin 500 mg Capsule 500 mg PO Q12 9 Days Qty: 18 0RF Primary Care Provider: Fausto Noble Referrals: Fausto Noble PA [Primary Care Provider] - Disposition Disposition: Home, Self Care Discharge Date/Time: 11/12/22 15:06
--- NOTE | 2022-11-12 11:42 | CM.ED ---
Social Work SW introduced self and role to patient. SW discussed advance directives and patient reports she does have HCPOA and Living Will documents at home. SW requested pt to bring in documents when able. Shanna Arredondo FUNDRAISER, OPENER
[2022-11-12 13:52] LABS: Reflex Lactate? Y
== END 2022-11-12 15:06 | disposition home or self-care (01) ==
PROVIDERS: Emergency Provider Emergency Medicine; PCP Physician Assistant; Visit Provider Emergency Medicine
DX: L03.116 Cellulitis of left lower limb (principal); R79.89 Other specified abnormal findings of blood chemistry; I10 Essential (primary) hypertension; H40.9 Unspecified glaucoma; M10.9 Gout, unspecified; Z79.899 Other long term (current) drug therapy; Z79.01 Long term (current) use of anticoagulants; Z86.718 Personal history of other venous thrombosis and embolism; E03.9 Hypothyroidism, unspecified; R60.0 Localized edema; Z79.82 Long term (current) use of aspirin; Z96.653 Presence of artificial knee joint, bilateral; Z90.49 Acquired absence of other specified parts of digestive tract; Z90.710 Acquired absence of both cervix and uterus
CPT/HCPCS: 80048; 83605; 85025; 87040; 94760; 96365; 96366; 99284; J7040; J7050; A4216

== ENCOUNTER → 2022-11-17 | Outpatient (CLI) | payer MEDICARE, OTHER, SELFPAY ==
--- NOTE | 2022-11-17 15:20 | RAD_ITS ---
STUDY: X-RAY - LUMBAR SPINE REASON FOR EXAM: Female, 77 years old. RADICULOPATHY. Low back pain. TECHNIQUE: 3 view(s) of the lumbar spine were obtained. COMPARISON: None FINDINGS: There is an exaggerated lumbar lordosis. There is no substantial scoliosis. Minimal anterior listhesis of L4 on L5 secondary to facet joint osteoarthritis. Normal vertebral bodies and endplates. Disc space narrowing at the L4-L5 and L5-S1 levels. Disc space narrowing at the T12-L1 level. Patient is status post cholecystectomy. RAD/Lumbar Spine 2 or 3 Views IMPRESSION: Degenerative changes of the spine, as detailed above. Grade 1 anterior listhesis of L4 on L5. Electronically Signed: Codey Caor MD at 14:35 EDT ,
== END | disposition home or self-care (01) ==
LOC: RAD 15:10
PROVIDERS: PCP Physician Assistant; Referring Provider Physician Assistant; Visit Provider Physician Assistant
DX: M54.16 Radiculopathy, lumbar region (principal)
CPT/HCPCS: 72100

== ENCOUNTER → 2022-11-28 | Outpatient (CLI) | payer MEDICARE, OTHER, SELFPAY ==
--- NOTE | 2022-11-28 11:00 | MRI_ITS ---
INDICATION: RADICULOPATHY EXAMINATION: MRI - MR Spine Lumbar W/O Contrast TECHNIQUE: Multiplanar and multisequence MR images of the lumbar spine. IV Contrast Dosage and Agent: None. COMPARISON: 02/22/2008 FINDINGS: VERTEBRAE: Vertebral body heights are preserved. No acute fracture or pathologic marrow replacement. Stable multilevel hemangiomas. VERTEBRAL ALIGNMENT: Increasing spondylolisthesis at L4-5, currently 7 mm compared to prior 3 mm. There is preservation of the normal lumbar lordosis. CORD: Normal position and signal intensity of the conus medullaris. L1/L2: Normal disc height and morphology. Normal spinal canal, lateral recesses and neuroforamina. L2/L3: Normal disc space height. Circumferential annular bulge produces mild bilateral foraminal encroachment. No significant central stenosis. L3/L4: Normal disc height and morphology. Normal spinal canal, lateral recesses and neuroforamina. L4/L5: Loss of normal disc space height. Combination of posterior element hypertrophy and pseudobulge produces moderate central stenosis with mild right and moderate left foraminal stenosis. L5/S1: Normal disc height and morphology. Normal spinal canal, lateral recesses and neuroforamina. SOFT TISSUES: Bilateral parapelvic renal cysts. MRI/Spine Lumbar (Routine) IMPRESSION: Worsening spondylolisthesis at L4-5 with central and bilateral foraminal stenoses as above. Mild bilateral foraminal stenosis at L2-3. Electronically Signed: Tremayne Edmondson MD at 0:11 EDT ,
== END | disposition home or self-care (01) ==
LOC: MRI 10:25
PROVIDERS: PCP Physician Assistant; Referring Provider Physician Assistant; Visit Provider Physician Assistant
DX: M54.16 Radiculopathy, lumbar region (principal); M15.0 Primary generalized (osteo)arthritis
CPT/HCPCS: 72148

== ENCOUNTER 2022-12-14 18:48 | Observation (INO) | payer MEDICARE, OTHER, SELFPAY ==
[2022-12-14] VITALS (10 sets, daily range): BP systolic 107–148; BP diastolic 45–91; PULSE 60–78; RESP 10–18; TEMP 36–36.8; O2SAT 37–100; BMI 62.1; BMI 48.9
--- NOTE | 2022-12-14 18:57 | ED.VIS.FALL ---
HPI HPI - Fall History of Present Illness Chief Complaint: Fall PFSH [facility] Medical History Abscess of right groin Arthritis Degenerative joint disease Diastolic dysfunction Dyspnea on effort Dyspnea on minimal exertion Edema of both legs Glaucoma Gout History of thyroid cancer Hypertension Iatrogenic hypothyroidism Left leg DVT (03/2018) Leg pain [facility] current use of anticoagulant Lymphedema of leg Morbid obesity Swelling of lower extremity Home Medications fish, borage, flaxseed oils-omega 3,6,9 comb no.1 1,200 mg capsule 2,400 mg PO DAILY SUPPLEMENT 01/07/16 [History Last Taken 08/11/22] timolol maleate 0.5 % eye drops 1 drp EACH EYE BID GLAUCOMA 01/07/16 [History Last Taken 08/10/22] allopurinol 100 mg tablet 100 mg PO BID GOUT 04/13/18 [History Last Taken 08/10/22] furosemide 40 mg tablet 40 mg PO DAILY FLUID 04/13/18 [History Last Taken 08/11/22] apixaban 5 mg tablet (Eliquis) 5 mg PO BID BLOOD THINNER 04/28/18 [History Last Taken 12/14/22 08:00] levothyroxine 112 mcg tablet 112 mcg PO DAILY THYROID 05/16/18 [History Last Taken 08/11/22] metoprolol succinate 25 mg tablet,extended release 24 hr 25 mg PO BID BLOOD PRESSURE 06/23/20 [History Last Taken 12/14/22 08:00] aspirin 81 mg tablet,delayed release 81 mg PO DAILY HEART HEALTH 08/11/22 [History Last Taken 08/11/22] losartan 50 mg tablet 50 mg PO DAILY BLOOD PRESSURE 08/11/22 [History Last Taken 08/11/22] cephalexin 500 mg capsule 500 mg PO Q12 9 days #18 caps 08/12/22 [Rx Last Taken Unknown] cephalexin 500 mg capsule 500 mg PO Q6 #40 CAPSULES 11/12/22 [Rx Last Taken Unknown] duloxetine 30 mg capsule,delayed release 30 mg PO DAILY 12/14/22 [History Last Taken Unknown] metolazone 5 mg tablet 5 mg PO DAILY 12/14/22 [History Last Taken Unknown] potassium chloride 10 mEq capsule,extended release 10 meq PO DAILY 12/14/22 [History Last Taken Unknown] Allergy/AdvReac Type Severity Reaction Status Date / Time Sulfa (Sulfonamide Allergy Rash Verified 12/14/22 23:45 Antibiotics) tramadol HCl [From Ultram] Allergy Hives Verified 12/14/22 23:45 olmesartan AdvReac Severe sob, Verified 12/14/22 23:45 lightheaded budesonide [From Symbicort] AdvReac Intermediate affected Verified 12/14/22 23:45 eyesight (pt has glaucoma) carvedilol [From Coreg] AdvReac Intermediate I hear my Verified 12/14/22 23:45 heart pounding in my ears formoterol [From Symbicort] AdvReac Intermediate affected Verified 12/14/22 23:45 eyesight (pt has glaucoma) Family History Mother CAD (coronary artery disease) Hypertension Daughter Cancer Sister Hypertension Sister Hypertension Surgical History History Incision and drainage abscess right groin History of bilateral knee replacement History of bilateral oophorectomies History of cholecystectomy History of hysterectomy History of total thyroidectomy Status post right and left heart catheterization Social History Smoking Status: Never smoker second hand exposure: Yes alcohol intake: never caffeine: Yes (hot chocolate) Type: other Number of servings: 1 EXAM Physical Exam Const Vital Signs: 12/14/22 18:49 12/14/22 18:51 12/14/22 20:55 Temperature 98.2 F 97.2 F L Temperature Source Temporal Pulse Rate 65 68 Pulse Rate [1 (Initial Baseline)] Pulse Rate [2] Pulse Rate [3] Pulse Rate [4] Respiratory Rate 14 10 L Respiratory Rate [1 (Initial Baseline)] Respiratory Rate [2] Respiratory Rate [3] Respiratory Rate [4] Respiratory Effort Normal Non-Labored Blood Pressure 123/45 H 148/60 H Blood Pressure [1 (Initial Baseline)] Blood Pressure [2] Blood Pressure [3] Blood Pressure [4] Blood Pressure Mean 71 Pulse Ox 98 97 Oxygen Delivery Method Room Air Nasal Cannula Oxygen Delivery Method [2] Oxygen Flow Rate (L/min) 2 Oxygen Flow Rate (L/min) [2] 12/14/22 20:56 12/14/22 21:05 12/14/22 22:10 Temperature Temperature Source Pulse Rate 65 68 Pulse Rate [1 (Initial Baseline)] 60 Pulse Rate [2] 68 Pulse Rate [3] 64 Pulse Rate [4] 64 Respiratory Rate 10 L 18 Respiratory Rate [1 (Initial Baseline)] 16 Respiratory Rate [2] 15 Respiratory Rate [3] 17 Respiratory Rate [4] 16 Respiratory Effort Blood Pressure 148/60 H 121/76 H Blood Pressure [1 (Initial Baseline)] 148/60 H Blood Pressure [2] 147/69 H Blood Pressure [3] 107/91 H Blood Pressure [4] 108/55 L Blood Pressure Mean 89 91 Pulse Ox 97 99 Oxygen Delivery Method Oxygen Delivery Method [2] Non-Rebreather Oxygen Flow Rate (L/min) Oxygen Flow Rate (L/min) [2] 10 MDM MDM MDM Narrative Medical decision making narrative: HISTORY OF PRESENT ILLNESS: 77-year-old female here mechanical fall from standing. She states she had mechanical fall from standing prior to arrival. States landed on bilateral knees and injured her right shoulder. Denies head trauma loss of consciousness. REVIEW OF SYSTEMS: Pertinent positives: Right shoulder pain, bilateral knee pain Pertinent negatives: [Head trauma, LOC PHYSICAL EXAM: Nursing triage notes reviewed, Vital signs reviewed Primary Survey Airway: Intact Breathing: Bilateral breath sounds Circulation: Palpable bilateral femorals, Palpable bilateral radial, Palpable bilateral DP and Palpable bilateral PT Disability / Spine precautions GCS Score: Eye Openin Verbal Response: 5 Motor Response: 6 Secondary Survey Constitutional: Please see MDM Head: Atraumatic, Midface stable, NO jaw malocclusion, No Cephalohematoma, and No Lacerations noted Eye: Pupils equal round and reactive to light, Extraocular muscles intact and No periorbital ecchymosis or stepoff, no evidence of entrapment ENT: Oropharynx clear, no lacerations, no hemotympanum, no raccoon eyes or molina sign Cervical spine / Neck: No cervical spine bony tenderness, crepitance, or stepoff deformity Trachea midline Lungs: Clear to auscultation, No asymmetric rise and No crepitus, no flail chest Cardiac: Regular rate and rhythm and No murmurs Abdomen: Soft, Nontender and No rebound Pelvis: Pelvis stable to compression : No evidence of genital injury Back: No midline bony tenderness to thoracic/lumbar/sacral spines Neuro: Neuro: Intact sensation L1-S1 dermatomal distributions. Intact 5/5 strength in hip flexion (T12-L3). Knee extension (L2-L4). Ankle dorsiflexion (L4-L5). Ankle plantar flexion (S1). Great toe extension (L5). 2+ patellar and Achilles DTRs. Intact axillary nerve unction. Psych: Normal affect Extremities: Obvious deformity of the right shoulder. Nursing triage notes reviewed, Vital signs reviewed MEDICAL DECISION MAKING: Chief Complaint: Right shoulder pain, bilateral knee pain External records reviewed: No recent advanced imaging of the involved extremities Factors affecting care: n VTE on Eliquis Social determinants of health: n elderly History obtained from others: none Consults: none ALL IMAGES (IF OBTAINED) HAVE BEEN PERSONALLY REVIEWED AND INTERPRETED BY MYSELF. BMP with hypokalemia otherwise no obvious electrolyte abnormalities, PIERRE on CKD CBC without leukocytosis, mild anemia, no thrombocytopenia MDM Narrative: Patient was hemodynamically stable, afebrile, nontoxic-appearing. Primary secondary trauma survey concerning for right shoulder fracture-dislocation, bilateral knee fracture dislocation. X-ray of the right shoulder showed an anterior dislocation. I obtained x-rays of the bilateral knees as well as right shoulder. I gave Percocet for pain relief. X-rays were remarkable for anterior shoulder dislocation. Bilateral knee films are negative by my read. Patient's shoulder was relocated with procedural sedation and propofol. Please see below procedure note. Procedural sedation: The procedure was performed by myself. Intra-Service Time: 15 minutes Indication: Completion of a potentially painful procedure. Pre-sedation Evaluation: Mallampati score of 2, ASA class III Patient is an appropriate candidate for procedural sedation. The risks of sedation were discussed with the patient and/or legal guardian. A time out was completed. The patient was reevaluated immediately prior to initiation of sedation. IV access established. The patient was sedated with 1 mg/kg of propofol or 150 mg The patient was monitored with continuous pulse oximetry, cafeteria monitor, and capnography. The patient protected their airway well, with vital signs remaining stable throughout the duration of the procedure. There were no complications and no significant hypoxemia. I remained at the bedside for the sedation. I provided 15 minutes minutes of intra-service time. Post sedation evaluation: Patient was alert and cooperative, hemodynamically stable with appropriate respiratory status, temperature and pain control without ongoing nausea and vomiting. After sedation and reduction we discussed her home-going plan. Patient alerted me that she lives at home alone. She has difficulty getting around at baseline and with her right upper extremity, right dominant hand out of commission this will be very difficult for her to perform her ADLs. Says she not feel confident ambulating at home, taking care of her self, wrapping her legs, cooking cleaning etc. Given this I recommended admission. Discussed with hospitalist. Of note patient had hypokalemia on BMP this was replaced with IV potassium. The patient and/or family, caregivers express understanding. The patient and/or family, caregivers agrees with the plan. Total critical care time today provided was at least 0 minutes. This excludes separately billable procedures. Critical care time (if documented) is secondary to the patient having high probability of clinically significant/life threatening deterioration in the patient's condition which required my urgent intervention. Shared decision making: I will have a discussion with the patient and or visitors regarding risk/benefits of further testing or admission. They will be made aware of of the risk/benefits inherent in this decision they will be given the opportunity to voice understanding. Lab Data Attestation: I reviewed the patient's lab results. Labs: Laboratory Results - last 24 hr 12/14/22 21:15 WBC 10.8 RBC 3.69 L Hgb 10.7 L Hct 34.0 L MCV 92.1 MCH 29.0 MCHC 31.5 L RDW Std Deviation 50.7 H RDW Coeff of Erasmo 14.9 H Plt Count 196 MPV 10.9 Sodium 138 Potassium 2.7 L* Chloride 101 Carbon Dioxide 29.0 Anion Gap 8 BUN 99 H Creatinine 2.16 H Estim Creat Clear Calc 16.72 Est GFR (MDRD) Af Amer 28 L Est GFR (MDRD) Non-Af 24 L BUN/Creatinine Ratio 45.8 H Glucose 127 H Calcium 9.0 Radiography Diagnostic Testing: Clinical Impression(s) from Imaging Studies Knee X-Ray 12/14/22 19:25 IMPRESSION: Circumferential soft tissue swelling. No finding of fracture. Electronically Signed: Shaka Segura MD at 20:25 EDT , Shoulder X-Ray 12/14/22 19:25 IMPRESSION: Anterior glenohumeral dislocation. No finding of fracture on this single AP view. Electronically Signed: Shaka Segura MD at 20:28 EDT , Knee X-Ray 12/14/22 19:45 IMPRESSION: Diffuse soft tissue swelling. No finding of fracture. Electronically Signed: Shaka Segura MD at 20:27 EDT , Shoulder X-Ray 12/14/22 21:10 IMPRESSION: The humeral head is now located over the glenoid on this single frontal view of the right shoulder. Electronically Signed: Shaka Segura MD at 21:40 EDT , Imaging reviewed by myself. Initial x-ray showed a right anterior shoulder as location. Postreduction x-ray showed interval reduction. X-rays of the bilateral knees show no obvious evidence of fracture dislocation by my read. Discharge Plan Dx/Rx/DC Orders Clinical Impression: Contusion of knee, Anterior shoulder dislocation, Fall, Acute kidney injury superimposed on chronic kidney disease, Acute hypokalemia Disposition Disposition: Acute Care Hospital [facility] Discharge Date/Time: 12/14/22 23:08
--- NOTE | 2022-12-14 19:25 | RAD_ITS ---
INDICATION: shoulder pain after fall EXAMINATION/TECHNIQUE: X-RAY - RIGHT XR Shoulder 1 View 1 VIEWS COMPARISON: None RAD/Shoulder One View IMPRESSION: Anterior glenohumeral dislocation. No finding of fracture on this single AP view. Electronically Signed: Shaka Segura MD at 20:28 EDT ,
--- NOTE | 2022-12-14 19:25 | RAD_ITS ---
INDICATION: KNEE PAIN AFTER FALL EXAMINATION/TECHNIQUE: X-RAY - RIGHT XR Knee 3 Views 3 VIEWS COMPARISON: None FINDINGS: SOFT TISSUES: Diffuse swelling. No gas or unexpected radiopaque foreign body. BONES/JOINTS: No acute fracture or subluxation. TKA and patellar resurfacing in anatomic alignment without lucency to suggest loosening. No sclerotic or destructive changes observed. RAD/Knee 3 Views IMPRESSION: Circumferential soft tissue swelling. No finding of fracture. Electronically Signed: Shaka Segura MD at 20:25 EDT ,
--- NOTE | 2022-12-14 19:45 | RAD_ITS ---
INDICATION: Left knee pain after fall EXAMINATION/TECHNIQUE: X-RAY - LEFT XR Knee 3 Views 4 VIEWS COMPARISON: 08/11/2022 tibia/fibula x-ray FINDINGS: SOFT TISSUES: Diffuse swelling. No gas or unexpected radiopaque foreign body. BONES/JOINTS: No acute fracture or subluxation. Total knee arthroplasty and patellar resurfacing in anatomic alignment without lucency to suggest loosening. No sclerotic or destructive changes observed. RAD/Knee 3 Views IMPRESSION: Diffuse soft tissue swelling. No finding of fracture. Electronically Signed: Shaka Segura MD at 20:27 EDT ,
[2022-12-14] MEDS: Oxycodone/Apap 5/325 Tablet PO (19:58)
[2022-12-14] MEDS: 0.9% Normal Saline 1,000 ML 999 ML IV (20:45)
[2022-12-14] MEDS: Ondansetron 4 MG/2 ML Vial IV (20:45)
--- NOTE | 2022-12-14 21:10 | RAD_ITS ---
INDICATION: POST REDUCTION EXAMINATION/TECHNIQUE: X-RAY - RIGHT XR Shoulder 1 View 1 VIEWS COMPARISON: One hour earlier RAD/Shoulder One View IMPRESSION: The humeral head is now located over the glenoid on this single frontal view of the right shoulder. Electronically Signed: Shaka Segura MD at 21:40 EDT ,
[2022-12-14] MEDS: Propofol 200 MG/20 ML Vial IV BOLUS (21:24)
[2022-12-14 21:34] LABS: Hemoglobin 10.7 g/dL (12.0-15.0); Mean Corp Hgb Conc 31.5 g/dL (32-36); Mean Corpuscular Volume 92.1 fL (81-99); Mean Platelet Vol. 10.9 fl (6.2-12.0); Platelet Count 196 K/mm3 (150-450); RBC Distribution Width CV 14.9 % (11.6-14.6); RBC Distribution Width SD 50.7 fl (35.1-43.9); Red Blood Count 3.69 M/mm3 (4.2-5.4); White Blood Count 10.8 K/mm3 (4.4-11.0)
[2022-12-14 21:54] LABS: Anion Gap 8 (5-15); BUN 99 mg/dL (7-18); BUN/Creat Ratio 45.8 RATIO (10-20); Chloride 101 mmol/L (98-107); Creatinine, Serum 2.16 mg/dL (0.55-1.02); EST Glomerular Filtration Rate 24 mL/min (>60); Est Glom Filt Rate - Afr Amer 28 mL/min (>60); Estimated Creatinine Clearance 16.72 ml/min; Glucose 127 mg/dL (74-106); Potassium 2.7 mmol/L (3.5-5.1); Sodium Level 138 mmol/L (136-145)
--- NOTE | 2022-12-14 22:33 | HP.PCM.HOS_ITS ---
[facility] - General General Date of Admission: 12/14/22 Date of Service: 12/14/22 Chief Complaint: Fall [facility] Narrative CHELSEY MCGEE, is a 77 F with a significant history bilateral leg lymphedema; DVT of the left leg and chronic left leg pain from lymphedema who presented with a fall. Reportedly patient was walking towards her garage She reported her leg might have probably caught something and then she fell. She denied hitting her head. She had severe pain in her right shoulder following the fall and the right shoulder was found to have dislocated. Her right shoulder was put back in alignment at the emergency department and a sling placed. Patient reports bruising all over her body. She is right-handed now she is unable to use her right hand. Chronically, with her lymphedema she wraps her bilateral legs with the right hand and now she is unable to do that. Patient thinks she will be unable to care of self at home [facility] Medical History Abscess of right groin Arthritis Degenerative joint disease Diastolic dysfunction Dyspnea on effort Dyspnea on minimal exertion Edema of both legs Glaucoma Gout History of thyroid cancer Hypertension Iatrogenic hypothyroidism Left leg DVT (03/2018) Leg pain jail current use of anticoagulant Lymphedema of leg Morbid obesity Swelling of lower extremity Home Medications fish, borage, flaxseed oils-omega 3,6,9 comb no.1 1,200 mg capsule 2,400 mg PO DAILY SUPPLEMENT 01/07/16 [History Last Taken 08/11/22] timolol maleate 0.5 % eye drops 1 drp EACH EYE BID GLAUCOMA 01/07/16 [History Last Taken 08/10/22] allopurinol 100 mg tablet 100 mg PO BID GOUT 04/13/18 [History Last Taken 08/10/22] furosemide 40 mg tablet 40 mg PO DAILY FLUID 04/13/18 [History Last Taken 08/11/22] apixaban 5 mg tablet (Eliquis) 5 mg PO BID BLOOD THINNER 04/28/18 [History Last Taken 08/11/22] levothyroxine 112 mcg tablet 112 mcg PO DAILY THYROID 05/16/18 [History Last Taken 08/11/22] metoprolol succinate 25 mg tablet,extended release 24 hr 25 mg PO BID BLOOD PRESSURE 06/23/20 [History Last Taken 08/11/22] aspirin 81 mg tablet,delayed release 81 mg PO DAILY HEART HEALTH 08/11/22 [History Last Taken 08/11/22] losartan 50 mg tablet 50 mg PO DAILY BLOOD PRESSURE 08/11/22 [History Last Taken 08/11/22] cephalexin 500 mg capsule 500 mg PO Q12 9 days #18 caps 08/12/22 [Rx Last Taken Unknown] cephalexin 500 mg capsule 500 mg PO Q6 #40 CAPSULES 11/12/22 [Rx Last Taken Unknown] duloxetine 30 mg capsule,delayed release 30 mg PO DAILY 12/14/22 [History Last Taken Unknown] metolazone 5 mg tablet 5 mg PO DAILY 12/14/22 [History Last Taken Unknown] potassium chloride 10 mEq capsule,extended release 10 meq PO DAILY 12/14/22 [History Last Taken Unknown] Allergy/AdvReac Type Severity Reaction Status Date / Time Sulfa (Sulfonamide Allergy Rash Verified 11/12/22 09:09 Antibiotics) tramadol HCl [From Ultram] Allergy Hives Verified 11/12/22 09:09 olmesartan AdvReac Severe sob, Verified 11/12/22 09:09 lightheaded budesonide [From Symbicort] AdvReac Intermediate affected Verified 11/12/22 09 :09 eyesight (pt has glaucoma) carvedilol [From Coreg] AdvReac Intermediate I hear my Verified 11/12/22 09:09 heart pounding in my ears formoterol [From Symbicort] AdvReac Intermediate affected Verified 11/12/22 09:09 eyesight (pt has glaucoma) Family History Mother CAD (coronary artery disease) Hypertension Daughter Cancer Sister Hypertension Sister Hypertension Surgical History History Incision and drainage abscess right groin History of bilateral knee replacement History of bilateral oophorectomies History of cholecystectomy History of hysterectomy History of total thyroidectomy Status post right and left heart catheterization Social History Smoking Status: Never smoker second hand exposure: Yes alcohol intake: never caffeine: Yes (hot chocolate) Type: other Number of servings: 1 ROS ROS Narrative Pertinent positives and pertinent negatives as noted in HPI. All other systems were reviewed and are negative Vital Signs Vital Signs Vital Signs: 12/14/22 18:49 12/14/22 18:51 12/14/22 20:55 Temperature 98.2 F 97.2 F L Temperature Source Temporal Pulse Rate 65 68 Pulse Rate [1 (Initial Baseline)] Pulse Rate [2] Pulse Rate [3] Pulse Rate [4] Respiratory Rate 14 10 L Respiratory Rate [1 (Initial Baseline)] Respiratory Rate [2] Respiratory Rate [3] Respiratory Rate [4] Respiratory Effort Normal Non-Labored Blood Pressure 123/45 H 148/60 H Blood Pressure [1 (Initial Baseline)] Blood Pressure [2] Blood Pressure [3] Blood Pressure [4] Blood Pressure Mean 71 Pulse Ox 98 97 Oxygen Delivery Method Room Air Nasal Cannula Oxygen Delivery Method [2] Oxygen Flow Rate (L/min) 2 Oxygen Flow Rate (L/min) [2] 12/14/22 20:56 12/14/22 21:05 12/14/22 22:10 Temperature Temperature Source Pulse Rate 65 68 Pulse Rate [1 (Initial Baseline)] 60 Pulse Rate [2] 68 Pulse Rate [3] 64 Pulse Rate [4] 64 Respiratory Rate 10 L 18 Respiratory Rate [1 (Initial Baseline)] 16 Respiratory Rate [2] 15 Respiratory Rate [3] 17 Respiratory Rate [4] 16 Respiratory Effort Blood Pressure 148/60 H 121/76 H Blood Pressure [1 (Initial Baseline)] 148/60 H Blood Pressure [2] 147/69 H Blood Pressure [3] 107/91 H Blood Pressure [4] 108/55 L Blood Pressure Mean 89 91 Pulse Ox 97 99 Oxygen Delivery Method Oxygen Delivery Method [2] Non-Rebreather Oxygen Flow Rate (L/min) Oxygen Flow Rate (L/min) [2] 10 12/14/22 22:24 Temperature 98 F Temperature Source Temporal Pulse Rate 69 Pulse Rate [1 (Initial Baseline)] Pulse Rate [2] Pulse Rate [3] Pulse Rate [4] Respiratory Rate 12 Respiratory Rate [1 (Initial Baseline)] Respiratory Rate [2] Respiratory Rate [3] Respiratory Rate [4] Respiratory Effort Blood Pressure 132/56 H Blood Pressure [1 (Initial Baseline)] Blood Pressure [2] Blood Pressure [3] Blood Pressure [4] Blood Pressure Mean 81 Pulse Ox 99 Oxygen Delivery Method Oxygen Delivery Method [2] Oxygen Flow Rate (L/min) Oxygen Flow Rate (L/min) [2] Weight Weight: 149.2 kg Body Mass Index (BMI) 62.1 Physical Exam Narrative Physical exam: General: Morbidly obese Head: Normocephalic, atraumatic, no tenderness Eyes: Vision is grossly intact. EOMI ENT, no trauma, moist mucous membranes, no rhinorrhea Neck: Nontender, No thyromegaly. CVS: Regular rate and rhythm. S1-S2 present. No murmur, gallop or rub. Respiratory : clear to auscultation bilaterally, chest wall nontender Abdomen: Soft, nontender, nondistended, normal bowel sounds, no masses : Deferred Back: Nontender, no CVA tenderness, no midline spinal tenderness, deformities, step-offs Extremities: Bilateral leg erythema and swelling. Skin: Ecchymosis of left forearm. Erythema bilateral legs. Neuro: Alert, oriented, cranial nerves II through XII grossly intact. Psychiatry: Normal mood. Normal affect. Not depressed. Not anxious. Results Lab / Micro Data 12/14/22 21:15 12/14/22 21:15 Labs: Laboratory Results - last 24 hr 12/14/22 21:15: WBC 10.8, RBC 3.69 L, Hgb 10.7 L, Hct 34.0 L, MCV 92.1, MCH 29.0, MCHC 31.5 L, RDW Std Deviation 50.7 H, RDW Coeff of Erasmo 14.9 H, Plt Count 196, MPV 10.9, Sodium 138, Potassium 2.7 L*, Chloride 101, Carbon Dioxide 29.0, Anion Gap 8, BUN 99 H, Creatinine 2.16 H, Estim Creat Clear Calc 16.72, Est GFR (MDRD) Af Amer 28 L, Est GFR (MDRD) Non-Af 24 L, BUN/Creatinine Ratio 45.8 H, Glucose 127 H, Calcium 9.0 Radiology Impression Knee X-Ray 12/14/22 19:25 IMPRESSION: Circumferential soft tissue swelling. No finding of fracture. Electronically Signed: Shaka Segura MD at 20:25 EDT , Shoulder X-Ray 12/14/22 19:25 IMPRESSION: Anterior glenohumeral dislocation. No finding of fracture on this single AP view. Electronically Signed: Shaka Segura MD at 20:28 EDT , Knee X-Ray 12/14/22 19:45 IMPRESSION: Diffuse soft tissue swelling. No finding of fracture. Electronically Signed: Shaka Segura MD at 20:27 EDT , Shoulder X-Ray 12/14/22 21:10 IMPRESSION: The humeral head is now located over the glenoid on this single frontal view of the right shoulder. Electronically Signed: Shaka Segura MD at 21:40 EDT , Assessment & Plan Assessment/Plan (1) Contusion of knee: QUALIFIERS: Encounter type: initial encounter Laterality: unspecified laterality Qualified Code(s): S80.00XA - Contusion of unspecified knee, initial encounter (2) Anterior shoulder dislocation: QUALIFIERS: Encounter type: initial encounter Laterality: right Qualified Code(s): S43.014A - Anterior dislocation of right humerus, initial encounter PLAN: Plan Fall with Anterior shoulder dislocation status post reduction Shoulder one view x-ray initially interpreted by radiology as anterior naheed ohumeral dislocation. Initial one view x-ray was independently interpreted and I agree with radiologist interpretation. Postreduction x-ray of right shoulder was independently interpreted and I agree with radiology interpretation of humeral head now located over the glenoid on single frontal view of the right shoulder. Sling placed in the emergency department and continued. PT and OT to work with patient. Case management consult. As needed oxycodone and Tylenol for pain. Bowel protocol and antiemetics in place. Knee contusion Bilateral knee x-ray with soft tissue swelling. Hold home Eliquis and aspirin. Resume as necessary. Of note patient take Eliquis for history of DVT in left leg. Hypokalemia On presentation potassium was 2.7 the emergency department. Replace. Trend. Of note patient was on diuretics for lymphedema. Diuretics held secondary to PIERRE. Trend BMP. Replace as necessary. Adult failure to thrive With obesity; bilateral lymphedema and shoulder dislocation status post right reduction patient is unable to take care of herself. Case management consult. PIERRE His creatinine on presentation was 2.16. His creatinine on 11/12/2022 was 1.71. Baseline creatinine is around 1.2. Hold home diuretics. Hold losartan. Gentle IV hydration. Trend BMP. Lymphedema Persistent With PIERRE and hypokalemia. Diuretics. DVT prophylaxis: Leg wrap to bilateral legs for lymphedema. Consider starting Eliquis as soon as is safe. Charges/Coding Visit Charges Inpatient E&M: 94183 Init Hosp L2
[2022-12-14] MEDS: Potassium Chloride 10mEq/100mL 10 MEQ/100 ML IV.SOLN. 100 MEQ IV BOLUS ×2 (22:38→23:34)
[2022-12-15] MEDS: 0.9% Normal Saline 1,000 ML 75 ML IV ×3 (00:35→22:59)
[2022-12-15] MEDS: Potassium Chloride 10mEq/100mL 10 MEQ/100 ML IV.SOLN. 100 MEQ IV BOLUS ×2 (00:37→01:40)
[2022-12-15] MEDS: Ondansetron 4 MG/2 ML Vial IV (00:50)
[2022-12-15] MEDS: Potassium Chloride Oral Tablet 20 MEQ 40 MEQ PO (00:52)
[2022-12-15] MEDS: Levothyroxine 112 MCG Tablet PO (05:45)
[2022-12-15 05:49] VITALS: BP 115/51; PULSE 76; RESP 16; TEMP 36.4; O2SAT 99
[2022-12-15 06:56] VITALS: O2SAT 99
[2022-12-15 07:11] LABS: Absolute Lymphocyte Count 0.44 X10^3/uL (0.83-4.51); Absolute Neutrophil Count 5.7 X10^3/uL (2.0-7.7); Basophil# 0.01 X10^3/uL; Basophil% 0.2 % (0-1); Eosinophil# 0.06 X10^3/uL; Eosinophils% 0.9 % (0-5); Hematocrit 33.3 % (37-47); Hemoglobin 10.8 g/dL (12.0-15.0); Lymphocyte # 0.44 X10^3/ul (0.83-4.51); Lymphocyte % 6.7 % (19-41); Mean Corp Hgb Conc 32.4 g/dL (32-36); Mean Corpuscular Hgb 29.7 pg (27.0-32.0); Mean Corpuscular Volume 91.5 fL (81-99); Mean Platelet Vol. 10.8 fl (6.2-12.0); Monocyte# 0.35 X10^3/uL; Monocyte% 5.3 % (0-10); NRBC Flagged by Analyzer 0 % (0-5); Neutrophil % 86.6 % (47-70); POSITIVE DIFFERENTIAL YES; Platelet Count 170 K/mm3 (150-450); RBC Distribution Width CV 14.7 % (11.6-14.6); RBC Distribution Width SD 49.7 fl (35.1-43.9); Red Blood Count 3.64 M/mm3 (4.2-5.4); White Blood Count 6.6 K/mm3 (4.4-11.0)
[2022-12-15 07:33] LABS: Anion Gap 5 (5-15); BUN 77 mg/dL (7-18); BUN/Creat Ratio 43.8 RATIO (10-20); Calcium,Total 8.7 mg/dL (8.5-10.1); Chloride 105 mmol/L (98-107); Creatinine, Serum 1.76 mg/dL (0.55-1.02); EST Glomerular Filtration Rate 30 mL/min (>60); Est Glom Filt Rate - Afr Amer 36 mL/min (>60); Estimated Creatinine Clearance 20.52 ml/min; Glucose 122 mg/dL (74-106); Potassium 3.9 mmol/L (3.5-5.1); Sodium Level 139 mmol/L (136-145)
[2022-12-15 07:46] LABS: Magnesium 2.2 mg/dL (1.6-2.6); Phosphorus 3.1 mg/dL (2.5-4.9)
[2022-12-15 07:57] LABS: Differential Indicated SCAN CRITERIA MET
[2022-12-15] MEDS: Timolol 0.5% 5ML OPTH.BTL 1 DRP EACH EYE ×2 (08:09→20:53)
[2022-12-15] MEDS: Allopurinol 100 MG Tablet PO ×2 (08:09→20:58)
[2022-12-15] MEDS: Menthol/Lanolin/Calamine/Znox 113 GM Tube 1 APPLIC TOPICAL ×2 (08:10→20:53)
[2022-12-15] MEDS: Nystatin Powder 15gm Bottle 1 APPLIC TOPICAL ×2 (08:10→20:53)
[2022-12-15 09:02] LABS: Differential Comment SCANNED
--- NOTE | 2022-12-15 09:09 | PN.HOSP_ITS ---
Subjective Subjective Doing well, no issues overnight. Feels better Objective Data Objective Data Vital Signs: Vital Signs Temp Pulse Resp BP Pulse Ox O2 Del Method O2 Flow Rate 97.6 F L 76 16 115/51 L 99 Room Air 10 12/15/22 05:49 12/15/22 05:49 12/15/22 05:49 12/15/22 05:49 12/15/22 06:56 12/15/22 06:56 12/14/22 21:05 Oxygen Flow Rate (L/min) [2] 10 Oxygen Flow Rate (L/min) 2 Oxygen Delivery Method [2] Non-Rebreather Oxygen Delivery Method Room Air Weight: 259 lb Body Mass Index (BMI) 48.9 Intake & Output: Intake and Output for Last 24 Hours 12/14/22 12/15/22 12/16/22 03:59 03:59 03:59 Intake Total 1593.33 / 1593.33 100 / 100 Output Total 900 / 900 Balance 1593.33 / 1593.33 -800 / -800 Lab / Micro Data 12/15/22 06:55 12/15/22 06:55 Labs: Laboratory Results - last 24 hr 12/14/22 21:15: WBC 10.8, RBC 3.69 L, Hgb 10.7 L, Hct 34.0 L, MCV 92.1, MCH 29.0, MCHC 31.5 L, RDW Std Deviation 50.7 H, RDW Coeff of Erasmo 14.9 H, Plt Count 196, MPV 10.9, Sodium 138, Potassium 2.7 L*, Chloride 101, Carbon Dioxide 29.0, Anion Gap 8, BUN 99 H, Creatinine 2.16 H, Estim Creat Clear Calc 16.72, Est GFR (MDRD) Af Amer 28 L, Est GFR (MDRD) Non-Af 24 L, BUN/Creatinine Ratio 45.8 H, Glucose 127 H, Calcium 9.0 12/15/22 06:55: WBC 6.6, RBC 3.64 L, Hgb 10.8 L, Hct 33.3 L, MCV 91.5, MCH 29.7, MCHC 32.4, RDW Std Deviation 49.7 H, RDW Coeff of Erasmo 14.7 H, Plt Count 170, MPV 10.8, Immature Gran % (Auto) 0.300, Neut % (Auto) 86.6 H, Lymph % (Auto) 6.7 L, [place] % (Auto) 5.3, Eos % (Auto) 0.9, Baso % (Auto) 0.2, Absolute Neuts (auto) 5.7, Absolute Lymphs (auto) 0.44 L, Nucleated RBC % 0, Differential Comment SCANNED, Sodium 139, Potassium 3.9, Chloride 105, Carbon Dioxide 29.0, A nion Gap 5, BUN 77 H, Creatinine 1.76 H, Estim Creat Clear Calc 20.52, Est GFR (MDRD) Af Amer 36 L, Est GFR (MDRD) Non-Af 30 L, BUN/Creatinine Ratio 43.8 H, Glucose 122 H, Calcium 8.7, Phosphorus 3.1, Magnesium 2.2 Radiography Diagnostic Testing: Radiology Impression Knee X-Ray 12/14/22 19:25 IMPRESSION: Circumferential soft tissue swelling. No finding of fracture. Electronically Signed: Shaka Segura MD at 20:25 EDT Reading Location ID and State: [facility] / [place] Tel , Service support , Shoulder X-Ray 12/14/22 19:25 IMPRESSION: Anterior glenohumeral dislocation. No finding of fracture on this single AP view. Electronically Signed: Shaka Segura MD at 20:28 EDT Reading Location ID and State: [facility] / [place] Tel , Service support , Knee X-Ray 12/14/22 19:45 IMPRESSION: Diffuse soft tissue swelling. No finding of fracture. Electronically Signed: Shaka Segura MD at 20:27 EDT Reading Location ID and State: [facility] / [place] Tel , Service support , Shoulder X-Ray 12/14/22 21:10 IMPRESSION: The humeral head is now located over the glenoid on this single frontal view of the right shoulder. Electronically Signed: Shaka Segura MD at 21:40 EDT , Physical Exam Narrative General: Alert, Oriented x3, Cooperative, No apparent distress HEENT: Atraumatic, PERRLA, EOMI, Normocephalic Oral: Moist Mucosa Neck: Supple, No JVD Lungs: Diminished, Normal air movement, No rhonchi, No wheeze, No rales Cardiovascular: Regular rate, Regular Rhythm, Normal S1, Normal S2, No murmurs Abdomen: Soft, Non Tender, Non-Distended, No Hepato-splenomegaly Extremities: Edema, Capillary Refill Less than 3 Seconds, right arm in sling, left knee with ecchymosis Skin: No rashes, No breakdown Musculoskeletal: No Tenderness to Palpation of Joints or Extremities Neurological: Motor Exam 5/5 strength throughout, Sensory exam intact to light touch and pain Psych/Mental Status: Normal Affect, Appropriate Assessment & Plan Assessment/Plan (1) Contusion of knee: QUALIFIERS: Encounter type: initial encounter Laterality: unspecified laterality Qualified Code(s): S80.00XA - Contusion of unspecified knee, initial encounter (2) Anterior shoulder dislocation: QUALIFIERS: Encounter type: initial encounter Laterality: right Qualified Code(s): S43.014A - Anterior dislocation of right humerus, initial encounter PLAN: Plan 1. Mechanical fall with debility and right anterior shoulder dislocation status postreduction/PIERRE ? PT/OT ? Continue with right arm in sling ? X-rays were all negative for fracture ? We will continue to hold her diuretics as her kidney function recovers 2. Chronic diastolic CHF with lymphedema/HTN/HLD ? Blood pressure are stable can resume her home medications ? We will hold Lasix, losartan, metolazone secondary to PIERRE ? Continue with diuresis 3. Hypothyroidism ? Stable ? Continue with Synthroid DVT: Eliquis Charges/Coding Visit Charges Inpatient E&M: 32471 Subs Hosp L2
[2022-12-15 10:00] VITALS: BP 111/45; PULSE 76; RESP 18; TEMP 36.7; O2SAT 97
[2022-12-15 10:13] VITALS: BP 111/45
[2022-12-15] MEDS: Aspirin E.C. 81 MG Tablet PO (10:14)
[2022-12-15] MEDS: APIXABAN 5 MG TABLET PO ×2 (10:14→20:52)
[2022-12-15 15:00] VITALS: BP 107/45; PULSE 79; RESP 18; TEMP 36.8; O2SAT 97
[2022-12-15 20:51] VITALS: BP 119/54; PULSE 90; RESP 18; TEMP 37; O2SAT 94
[2022-12-15] MEDS: DULoxetine Hcl 30 MG Capsule PO (20:51)
[2022-12-15] MEDS: Metoprolol(XL)Succ 25 MG Tablet PO (20:51)
[2022-12-15] MEDS: MELATONIN 3 MG TABLET PO (20:51)
[2022-12-15] MEDS: Acetaminophen 325 MG Tablet 650 MG PO (20:52)
[2022-12-16] VITALS (7 sets, daily range): BP systolic 107–129; BP diastolic 45–62; PULSE 71–76; RESP 16–18; TEMP 36.6–37.1; O2SAT 94–98
[2022-12-16] MEDS: Levothyroxine 112 MCG Tablet PO (05:12)
[2022-12-16 06:49] LABS: Anion Gap 3 (5-15); BUN 52 mg/dL (7-18); BUN/Creat Ratio 41.6 RATIO (10-20); Calcium,Total 8.6 mg/dL (8.5-10.1); Chloride 109 mmol/L (98-107); Creatinine, Serum 1.25 mg/dL (0.55-1.02); EST Glomerular Filtration Rate 44 mL/min (>60); Est Glom Filt Rate - Afr Amer 54 mL/min (>60); Estimated Creatinine Clearance 28.89 ml/min; Glucose 125 mg/dL (74-106); Potassium 3.7 mmol/L (3.5-5.1); Sodium Level 141 mmol/L (136-145)
[2022-12-16] MEDS: Nystatin Powder 15gm Bottle 1 APPLIC TOPICAL ×2 (08:53→22:03)
[2022-12-16] MEDS: APIXABAN 5 MG TABLET PO ×2 (08:53→22:03)
[2022-12-16] MEDS: Timolol 0.5% 5ML OPTH.BTL 1 DRP EACH EYE ×2 (08:53→22:03)
[2022-12-16] MEDS: Aspirin E.C. 81 MG Tablet PO (08:53)
[2022-12-16] MEDS: Menthol/Lanolin/Calamine/Znox 113 GM Tube 1 APPLIC TOPICAL ×2 (08:53→22:02)
[2022-12-16] MEDS: Allopurinol 100 MG Tablet PO ×2 (08:54→22:03)
[2022-12-16] MEDS: Metoprolol(XL)Succ 25 MG Tablet PO ×2 (08:54→22:03)
--- NOTE | 2022-12-16 09:03 | PN.HOSP_ITS ---
Subjective Subjective Doing well, no issues overnight. Feels like she would benefit from SNF, if she is a little bit unsteady in her right arm is still in a sling Objective Data Objective Data Vital Signs: Vital Signs Temp Pulse Resp BP Pulse Ox O2 Del Method O2 Flow Rate 97.8 F 72 18 129/50 H 98 Room Air 10 12/16/22 05:00 12/16/22 08:54 12/16/22 05:00 12/16/22 08:54 12/16/22 07:03 12/16/22 08:50 12/14/22 21:05 Oxygen Flow Rate (L/min) [2] 10 Oxygen Flow Rate (L/min) 2 Oxygen Delivery Method [2] Non-Rebreather Oxygen Delivery Method Room Air Weight: 259 lb Body Mass Index (BMI) 48.9 Intake & Output: Intake and Output for Last 24 Hours 12/15/22 12/16/22 12/17/22 03:59 03:59 03:59 Intake Total 1593.33 / 1593.33 1898.75 / 1898.75 Output Total 2500 / 2500 200 / 200 Balance 1593.33 / 1593.33 -601.25 / -601.25 -200 / -200 Lab / Micro Data 12/15/22 06:55 12/16/22 06:13 Labs: Laboratory Results - last 24 hr 12/16/22 06:13: Sodium 141, Potassium 3.7, Chloride 109 H, Carbon Dioxide 29.0, Anion Gap 3 L, BUN 52 H, Creatinine 1.25 H, Estim Creat Clear Calc 28.89, Est GF R (MDRD) Af Amer 54 L, Est GFR (MDRD) Non-Af 44 L, BUN/Creatinine Ratio 41.6 H, Glucose 125 H, Calcium 8.6 Physical Exam Narrative General: Alert, Oriented x3, Cooperative, No apparent distress HEENT: Atraumatic, PERRLA, EOMI, Normocephalic Oral: Moist Mucosa Neck: Supple, No JVD Lungs: Diminished, Normal air movement, No rhonchi, No wheeze, No rales Cardiovascular: Regular rate, Regular Rhythm, Normal S1, Normal S2, No murmurs Abdomen: Soft, Non Tender, Non-Distended, No Hepato-splenomegaly Extremities: Edema, Capillary Refill Less than 3 Seconds, right arm in sling, left knee with ecchymosis Skin: No rashes, No breakdown Musculoskeletal: No Tenderness to Palpation of Joints or Extremities Neurological: Motor Exam 5/5 strength throughout, right upper extremity is in a sling, Sensory exam intact to light touch and pain Psych/Mental Status: Normal Affect, Appropriate Assessment & Plan Assessment/Plan (1) Contusion of knee: QUALIFIERS: Encounter type: initial encounter Laterality: unspecified laterality Qualified Code(s): S80.00XA - Contusion of unspecified knee, initial encounter (2) Anterior shoulder dislocation: QUALIFIERS: Encounter type: initial encounter Laterality: right Qualified Code(s): S43.014A - Anterior dislocation of right humerus, initial encounter PLAN: Plan 1. Mechanical fall with debility and right anterior shoulder dislocation status postreduction/PIERRE ? PT/OT ? Continue with right arm in sling ? X-rays were all negative for fracture ? We will continue to hold her diuretics as her kidney function recovers 2. Chronic diastolic CHF with lymphedema/HTN/HLD ? Blood pressure are stable can resume her home medications ? We will hold Lasix, losartan, metolazone secondary to PIERRE ? Continue with diuresis 3. Hypothyroidism ? Stable ? Continue with Synthroid DVT: Eliquis Charges/Coding Visit Charges Inpatient E&M: 91340 Subs Hosp L2
--- NOTE | 2022-12-16 10:29 | CASEMGMT ---
Social Work Pt states she does have a living will and healthcare POA naming her sister Toya Ybarra. Pt is aware documents are not on file at [facility]. SW requested they be brought in for scanning into the EMR. AFSHAN Willoughby
--- NOTE | 2022-12-16 10:30 | CASEMGMT ---
Social Work SW met with pt and introduced self and role of SW. Pt lives at home alone independently with all ADLs and IADLs. Pt drives and had no concerns with home situation until pt fell resulting in injury. Pt stating at this time she cannot return home alone as she cannot care for herself. SW spoke with pt regarding Inpatient Rehab and A list of [facility] providers including quality and resource use data and consistent with the patient?s preferred geographic region, medical needs, and insurance network were provided from the [employer] Guide. Pt preferred provider is [facility]. Referral made to [facility]. SW will await determination of acceptance. AFSHAN De Paz
--- NOTE | 2022-12-16 11:02 | CASEMGMT ---
MARGARITA CM in to discuss ESPINO form with patient. RN CM explained ESPINO form, patient voiced understanding. Pt signed form and filed in chart. Pt provided with a copy of signed ESPINO form. Patient had no further questions or concerns at this time.
[2022-12-16] MEDS: DULoxetine Hcl 30 MG Capsule PO (22:02)
[2022-12-17] MEDS: Levothyroxine 112 MCG Tablet PO (04:48)
[2022-12-17 05:00] VITALS: BP 138/54; PULSE 74; RESP 18; TEMP 36.9; O2SAT 95
[2022-12-17 06:15] LABS: Absolute Neutrophil Count 4.7 X10^3/uL (2.0-7.7); Basophil# 0.02 X10^3/uL; Basophil% 0.3 % (0-1); Eosinophil# 0.09 X10^3/uL; Eosinophils% 1.5 % (0-5); Hematocrit 29.7 % (37-47); Hemoglobin 9.2 g/dL (12.0-15.0); Lymphocyte % 11.9 % (19-41); Mean Corpuscular Hgb 28.6 pg (27.0-32.0); Mean Corpuscular Volume 92.2 fL (81-99); Mean Platelet Vol. 10.3 fl (6.2-12.0); Monocyte# 0.37 X10^3/uL; Monocyte% 6.3 % (0-10); NRBC Flagged by Analyzer 0 % (0-5); Neutrophil % 79.8 % (47-70); Platelet Count 152 K/mm3 (150-450); RBC Distribution Width CV 14.6 % (11.6-14.6); RBC Distribution Width SD 49.4 fl (35.1-43.9); Red Blood Count 3.22 M/mm3 (4.2-5.4); White Blood Count 5.9 K/mm3 (4.4-11.0)
[2022-12-17 06:41] LABS: Anion Gap 3 (5-15); BUN 37 mg/dL (7-18); BUN/Creat Ratio 37.3 RATIO (10-20); Calcium,Total 8.6 mg/dL (8.5-10.1); Chloride 108 mmol/L (98-107); Creatinine, Serum 0.99 mg/dL (0.55-1.02); EST Glomerular Filtration Rate 58 mL/min (>60); Est Glom Filt Rate - Afr Amer 70 mL/min (>60); Estimated Creatinine Clearance 36.48 ml/min; Glucose 110 mg/dL (74-106); Potassium 3.7 mmol/L (3.5-5.1); Sodium Level 142 mmol/L (136-145)
[2022-12-17 08:08] VITALS: BP 140/62; PULSE 69; RESP 16; TEMP 36.8; O2SAT 96
[2022-12-17] MEDS: Aspirin E.C. 81 MG Tablet PO (08:23)
[2022-12-17] MEDS: Nystatin Powder 15gm Bottle 1 APPLIC TOPICAL ×2 (10:46→20:36)
[2022-12-17] MEDS: APIXABAN 5 MG TABLET PO ×2 (10:46→20:36)
[2022-12-17] MEDS: Timolol 0.5% 5ML OPTH.BTL 1 DRP EACH EYE ×2 (10:46→20:37)
[2022-12-17 10:47] VITALS: PULSE 69
[2022-12-17] MEDS: Metoprolol(XL)Succ 25 MG Tablet PO ×2 (10:47→20:37)
[2022-12-17] MEDS: Allopurinol 100 MG Tablet PO ×2 (10:47→20:36)
[2022-12-17 15:38] VITALS: BP 133/52; PULSE 74; RESP 16; TEMP 36.6; O2SAT 100
--- NOTE | 2022-12-17 15:53 | CASEMGMT ---
Social Work Inpatient Rehab is able to accept pt. A bed will be available on Wednesday. Physician updated. SW met with pt and notified and pt is agreeable with discharge plan. Plan: [facility] Inpatient Rehab AFSHAN De Paz
--- NOTE | 2022-12-17 20:13 | PCM.PN.HOSP ---
Reason for Visit Reason for Visit: Diagnoses Anterior dislocation of right humerus, initial encounter (12/14/22) Contusion of unspecified knee, initial encounter (12/14/22) Subjective Subjective Patient was seen and examined today, she feels that she is not safe to go home, she has agreed to go to the rehab unit at [facility] if there is a bed available. At this time, there is no bed available today-there may be one available tomorrow however, patient will need a repeat H&H in the morning to make sure hemoglobin is stable before she goes to the rehab unit. Also talked to her about her right shoulder dislocation, she will need PT evaluation in the rehab unit concerning this. Objective Data Objective Data Vital Signs: Vital Signs Temp Pulse Resp BP Pulse Ox O2 Del Method O2 Flow Rate 97.9 F 74 16 133/52 H 100 Room Air 10 12/17/22 15:38 12/17/22 15:38 12/17/22 15:38 12/17/22 15:38 12/17/22 15:38 12/17/22 15:38 12/14/22 21:05 Oxygen Flow Rate (L/min) [2] 10 Oxygen Flow Rate (L/min) 2 Oxygen Delivery Method [2] Non-Rebreather Oxygen Delivery Method Room Air Weight: 117.48 kg Body Mass Index (BMI) 48.9 Intake & Output: Intake and Output for Last 24 Hours 12/15/22 12/16/22 12/17/22 23:59 23:59 23:59 Intake Total 2398.75 / 2398.75 1281.25 / 1281.25 250 / 250 Output Total 2500 / 2500 650 / 650 Balance -101.25 / -101.25 631.25 / 631.25 250 / 250 Lab / Micro Data 12/18/22 05:50 12/17/22 06:02 Labs: Laboratory Results - last 24 hr 12/17/22 06:02: WBC 5.9, RBC 3.22 L, Hgb 9.2 L, Hct 29.7 L, MCV 92.2, MCH 28.6, MCHC 31.0 L, RDW Std Deviation 49.4 H, RDW Coeff of Erasmo 14.6, Plt Count 152, MPV 10.3, Immature Gran % (Auto) 0.200, Neut % (Auto) 79.8 H, Lymph % (Auto) 11.9 L, Sutter % (Auto) 6.3, Eos % (Auto) 1.5, Baso % (Auto) 0.3, Absolute Neuts (auto) 4.7, Absolute Lymphs (auto) 0.70 L, Nucleated RBC % 0, Sodium 142, Potassium 3.7, Chloride 108 H, Carbon Dioxide 31.0, Anion Gap 3 L, BUN 37 H, Creatinine 0.99, Estim Creat Clear Calc 36.48, Est GFR (MDRD) Af Amer 70, Est GFR (MDRD) Non-Af 58 L, BUN/Creatinine Ratio 37.3 H, Glucose 110 H, Calcium 8.6 Physical Exam Const alert, oriented x3, no apparent distress and healthy appearing Constitutional Narrative: Patient is morbidly obese General Appearance: cooperative, well kempt and well developed Orientation / Consciousness: awake, oriented to person, oriented to place and oriented to time HEENT normocephalic, head/scalp atraumatic and moist oral mucous membranes Eyes PERRL, EOMs intact bilaterally and conjunctivae normal Neck supple, no JVD, thyroid normal and no carotid bruits General: trachea midline Resp normal respiratory effort, no retractions, no use of accessory muscles and clear to auscultation bilaterally Auscultation: Negative for rales, rhonchi or wheezes Cardio regular rate, regular rhythm, S1 normal heart sound, S2 normal heart sound, no murmurs, no rub and no gallops GI normal to inspection, nondistended, normoactive bowel sounds, soft to palpation, non-tender and non-distended Extremity Extremity Narrative: Patient is currently wearing a sling on her right arm Skin no rashes or lesions noted General Skin Exam: no breakdown Neuro oriented x3, CN's II-XII intact bilaterally, no focal motor deficits and no sensory deficits noted Sensorium / Orientation: awake, alert, oriented to person, oriented to place and oriented to time Speech: speech normal Psych affect normal Assessment & Plan Assessment/Plan (1) Anterior shoulder dislocation: QUALIFIERS: Encounter type: initial encounter Laterality: right Qualified Code(s): S43.014A - Anterior dislocation of right humerus, initial encounter PLAN: Plan 1. Acute debility status post mechanical fall at home with resultant right anterior shoulder dislocation, status post reduction-continue PT and OT, patient is wearing a sling in her right arm for support #2 acute kidney injury-continue present treatment, monitor creatinine #3 Hypokalemia-corrected at this time #4 essential hypertension-patient's losartan and metolazone and Lasix are being held secondary to her PIERRE, continue monitor blood pressure #5 hypothyroidism-patient on Synthroid #6 chronic anemia-etiology unclear at this point, I will order iron studies and the patient #7 morbid obesity-complicates care, medical course, recovery, and prognosis #8 spondylolisthesis at L4-5 with central and bilateral foraminal stenosis, mild bilateral foraminal stenosis at [id number] care, medical course, recovery, and prognosis Total clinical time spent by myself addressing patient's medical issues, reviewing all of her data, and collaborating with patient's care team: 35 minutes Charges/Coding Visit Charges Inpatient E&M: 17927 Subs Hosp L2
[2022-12-17 20:30] VITALS: BP 128/48; PULSE 76; RESP 16; TEMP 37.1; O2SAT 97
[2022-12-17 20:37] VITALS: PULSE 76
[2022-12-17] MEDS: DULoxetine Hcl 30 MG Capsule PO (20:37)
[2022-12-18] MEDS: Levothyroxine 112 MCG Tablet PO (05:22)
[2022-12-18] MEDS: Acetaminophen 325 MG Tablet 650 MG PO ×2 (05:24→20:01)
[2022-12-18 05:37] VITALS: BP 127/57; PULSE 74; RESP 16; TEMP 36.5; O2SAT 94
[2022-12-18 06:52] LABS: Hematocrit 29.2 % (37-47); Hemoglobin 9.4 g/dL (12.0-15.0)
[2022-12-18] MEDS: Aspirin E.C. 81 MG Tablet PO (07:15)
[2022-12-18 08:51] VITALS: BP 142/61; PULSE 66; RESP 16; TEMP 36.7; O2SAT 97
[2022-12-18] MEDS: APIXABAN 5 MG TABLET PO ×2 (09:02→21:08)
[2022-12-18] MEDS: Menthol/Lanolin/Calamine/Znox 113 GM Tube 1 APPLIC TOPICAL ×2 (09:03→21:07)
[2022-12-18] MEDS: Nystatin Powder 15gm Bottle 1 APPLIC TOPICAL (09:03)
[2022-12-18 09:04] VITALS: PULSE 66
[2022-12-18] MEDS: Allopurinol 100 MG Tablet PO ×2 (09:04→21:07)
[2022-12-18] MEDS: Metoprolol(XL)Succ 25 MG Tablet PO ×2 (09:04→21:12)
[2022-12-18] MEDS: Timolol 0.5% 5ML OPTH.BTL 1 DRP EACH EYE ×2 (09:04→21:08)
[2022-12-18 10:16] LABS: Iron 23 ug/dL (50-170); Iron Binding Capacity,Total 301 ug/dL (250-450); PERCENT IRON SATURATION 7.6 % (15.0-55.0)
--- NOTE | 2022-12-18 11:18 | CASEMGMT ---
Pt nurse made aware that pt requested information on medic alert. Provided printed handouts to pt at this time. Pt denies further needs.
[2022-12-18] MEDS: Senna/Docusate Sodium 1 Tablet 2 TABLET PO (12:09)
[2022-12-18] MEDS: Furosemide 40 MG Tablet PO (13:20)
--- NOTE | 2022-12-18 13:45 | CASEMGMT ---
Social [facility] not able to accept pt. SW met with pt and discussed other Rehab unit options vs. private pay at [facility]. Pt prefers rehab. Referrals to be sent to [facility]. AFSHAN De Paz
--- NOTE | 2022-12-18 13:59 | CASEMGMT ---
Discharge Planning Referral sent to the follow RU's; [facility], [facility], and [facility] via [facility]. Kori Brar, Discharge Planning Asst.
--- NOTE | 2022-12-18 16:50 | DCINST_ITS ---
Discharge Instructions Diet Discharge Diet: No restrictions Activity Discharge Activity: Return to Normal Activity Weight Bearing Status: Full weight bearing (with walker) Follow Up Care Test Results: Test results from this visit will be discussed in further detail at your follow- up appointment, if applicable. Discharge Plan Admission Admit Date/Time: 12/14/22 22:20 Primary Reason for Your Visit: debility, right shoulder dislocation Attending Provider: Nelson Dixon Primary Care Provider: Fausto Noble Consulting Providers: Javed Bermudez; Sidney Tao Instructions Patient Instructions: Bone Contusion Additional Instructions / Restrictions: right sling-wear for shoulder comfort PT/OT eval and treat BMP on 12/20/22 Discharge Orders/Prescriptions Prescriptions: New acetaminophen 325 mg Tablet 650 mg PO Q6H PRN PRN (Reason: Pain 1-10 Or Fever>100.7) Qty: 0 0RF melatonin 3 mg Tablet 3 mg PO QHS PRN PRN (Reason: Insomnia) Qty: 0 0RF nystatin [Nyamyc] 100,000 unit/gram Powder 1 applic topical BID Qty: 0 0RF Protocol: *Topical Application Instructions APPLICATION INSTRUCTIONS: apply to groin oxycodone 5 mg Tablet 5 mg PO Q4H PRN PRN (Reason: Pain Score 4-10) 2 Days Qty: 7 0RF sennosides-docusate sodium [Stool Softener-Stimulant Laxat] 8.6-50 mg Tablet 2 tab PO DAILY PRN PRN (Reason: CONSTIPATION) Qty: 0 0RF potassium chloride 20 mEq tablet extended release 20 meq PO DAILY Qty: 1 0RF Continued allopurinol 100 mg tablet 100 mg PO BID furosemide 40 mg tablet 40 mg PO DAILY Eliquis 5 mg tablet 5 mg PO BID levothyroxine 112 mcg tablet 112 mcg PO DAILY timolol maleate 1 DROP drops 1 drp EACH EYE BID metoprolol succinate 25 MG tablet extended release 24 hr 25 mg PO BID aspirin 81 mg Tablet,Delayed Release (Dr/Ec) 81 mg PO DAILY losartan 50 mg tablet 50 mg PO DAILY duloxetine 30 mg capsule,delayed release(DR/EC) 30 mg PO DAILY Patient Comments: TAKE 1 CAPSULE BY MOUTH EVERY DAY Discontinued fish,bora,flax oils-om3,6,9no1 1,200 MG capsule 2,400 mg PO DAILY cephalexin 500 mg Capsule 500 mg PO Q12 9 Days Qty: 18 0RF cephalexin [cephalexin] 500 mg capsule 500 mg PO Q6 Qty: 40 0RF metolazone 5 mg tablet 5 mg PO DAILY Patient Comments: TAKE 1 TABLET BY MOUTH EVERY DAY potassium chloride 10 mEq capsule, extended release 10 meq PO DAILY Patient Comments: TAKE 1 CAPSULE BY MOUTH EVERY DAY Referrals / Follow Up: Fausto Noble PA [Primary Care Provider] - Disposition Disposition (needs filled in before D/C Order can be placed): Inpatient Rehab Unit/Facility
--- NOTE | 2022-12-18 17:02 | PCM.DC.SUM ---
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 Acute debility status post mechanical fall at home with resultant right anterior shoulder dislocation, status post reduction-continue PT and OT, patient is wearing a sling in her right arm for support #2 acute kidney injury-continue present treatment, monitor creatinine #3 Hypokalemia-corrected at this time #4 essential hypertension-patient's losartan and metolazone and Lasix are being held secondary to her PIERRE, continue monitor blood pressure #5 hypothyroidism-patient on Synthroid #6 chronic iron deficiency anemia #7 morbid obesity-complicates care, medical course, recovery, and prognosis #8 spondylolisthesis at L4-5 with central and bilateral foraminal stenosis, mild bilateral foraminal stenosis at [id number] care, medical course, recovery, and prognosis #9 chronic lymphedema of the legs Total clinical time spent by myself addressing patient's medical issues, reviewing all of her data, and collaborating with patient's care team: 35 minutes Medications at Discharge Home Medications timolol maleate 0.5 % eye drops 1 drp EACH EYE BID GLAUCOMA 01/07/16 allopurinol 100 mg tablet 100 mg PO BID GOUT 04/13/18 furosemide 40 mg tablet 40 mg PO DAILY FLUID 04/13/18 apixaban 5 mg tablet (Eliquis) 5 mg PO BID BLOOD THINNER 04/28/18 levothyroxine 112 mcg tablet 112 mcg PO DAILY THYROID 05/16/18 metoprolol succinate 25 mg tablet,extended release 24 hr 25 mg PO BID BLOOD PRESSURE 06/23/20 aspirin 81 mg tablet,delayed release 81 mg PO DAILY HEART HEALTH 08/11/22 losartan 50 mg tablet 50 mg PO DAILY BLOOD PRESSURE 08/11/22 duloxetine 30 mg capsule,delayed release 30 mg PO DAILY 12/14/22 acetaminophen 325 mg tablet 650 mg (2 x 325 mg) PO Q6H PRN PRN Pain 1-10 Or Fever>100.7 #0 tabs 12/18/22 melatonin 3 mg tablet 3 mg PO QHS PRN PRN Insomnia #0 tabs 12/18/22 nystatin 100,000 unit/gram topical powder (Nyamyc) 1 applic topical BID #0 grams 12/18/22 oxycodone 5 mg tablet 5 mg PO Q4H PRN PRN Pain Score 4-10 2 days #7 tabs 12/18/22 potassium chloride 20 mEq tablet,extended release 20 meq PO DAILY #1 TAB 12/18/22 sennosides 8.6 mg-docusate sodium 50 mg tablet (Stool Softener-Stimulant Laxative) 2 tab PO DAILY PRN PRN CONSTIPATION #0 tabs 12/18/22 Hospital Course Operations None Procedures None Summary of Care Provided Minutes Spent on Discharge: 31 Hospital Course: This 77-year-old white female was seen in the emergency room at [facility] after sustaining a mechanical fall at home, she landed on her knees and her right shoulder, she complained of right shoulder pain and bilateral knee pain. On physical examination, there is an obvious deformity of her right shoulder, x-ray of the right shoulder showed an anterior dislocation, bilateral knee x-rays were obtained and showed no evidence of fracture. Patient's right shoulder was reduced in the emergency room, the plan was for the patient to go home but she was unable to be discharged home due to patient's concern of ambulating at home, she had been having problems prior to coming in to the emergency room. Labs obtained in the emergency room also showed the patient's potassium to be low at 2.7, creatinine was 2.16 and BUN was elevated at 99. [facility], PT and OT saw the patient, and arrangements were made for the patient to go to a rehab facility for short-term rehab services. Patient's Lasix was held, she was given potassium replacement and BMPs were monitored. Patient was given IV fluids. Patient's creatinine improved during her hospitalization. On 12/19/2022, patient was seen and examined: On examination she appeared in good health and spirits, she does not appear to be in any distress. Vital signs as documented. Skin warm and dry and without overt rashes. Neck without JVD, thyroid appears normal, trachea is midline, neck is supple. Lungs clear, normal air movement was noted. Heart exam notable for regular rhythm, normal sounds and absence of murmurs, rubs or gallops. Abdomen unremarkable and without evidence of organomegaly, masses, or abdominal aortic enlargement, bowel sounds are present in all 4 quadrants, no abdominal tenderness was noted. Extremities-patient had edema of the lower extremities bilaterally especially of the feet, no cyanosis was noted, no clubbing was noted. Neuro: Cranial nerves II through XII are grossly intact, no focal motor deficits were noted, sensation to light touch and pinprick is intact, motor exam 5/5 throughout. Psych: Patient is alert and oriented x3, she does not appear anxious or depressed, she does not appear agitated. Patient appears stable for transfer to a rehab unit at [facility] for inpatient rehab services on 12/19/2022. Weight / BMI Weight Weight: 117.48 kg Body Mass Index (BMI) 48.9 ABG / Lab / Microbiology Data 12/18/22 05:50 12/17/22 06:02 Laboratory: Laboratory Results - last 24 hr 12/18/22 05:50: Hgb 9.4 L, Hct 29.2 L, Iron 23 L, TIBC 301, Iron Saturation 7.6 L D/C Instructions Discharge Diet: No restrictions Weight Bearing Status: Full weight bearing (with walker) Meaningful Use Info Meaningful Use Diagnoses (Choose all that apply): None applicable Discharge Plan Admission Admit Date/Time: 12/14/22 22:20 Primary Reason for Your Visit: debility, right shoulder dislocation Attending Provider: Nelson Dixon Primary Care Provider: Fausto Noble Consulting Providers: Javed Bermudez; Sidney Tao Instructions Patient Instructions: Bone Contusion Additional Instructions / Restrictions: right sling-wear for shoulder comfort PT/OT eval and treat BMP on 12/20/22 Discharge Orders/Prescriptions Prescriptions: New acetaminophen 325 mg Tablet 650 mg PO Q6H PRN PRN (Reason: Pain 1-10 Or Fever>100.7) Qty: 0 0RF melatonin 3 mg Tablet 3 mg PO QHS PRN PRN (Reason: Insomnia) Qty: 0 0RF nystatin [Nyamyc] 100,000 unit/gram Powder 1 applic topical BID Qty: 0 0RF Protocol: *Topical Application Instructions APPLICATION INSTRUCTIONS: apply to groin oxycodone 5 mg Tablet 5 mg PO Q4H PRN PRN (Reason: Pain Score 4-10) 2 Days Qty: 7 0RF sennosides-docusate sodium [Stool Softener-Stimulant Laxat] 8.6-50 mg Tablet 2 tab PO DAILY PRN PRN (Reason: CONSTIPATION) Qty: 0 0RF potassium chloride 20 mEq tablet extended release 20 meq PO DAILY Qty: 1 0RF Continued allopurinol 100 mg tablet 100 mg PO BID furosemide 40 mg tablet 40 mg PO DAILY Eliquis 5 mg tablet 5 mg PO BID levothyroxine 112 mcg tablet 112 mcg PO DAILY timolol maleate 1 DROP drops 1 drp EACH EYE BID metoprolol succinate 25 MG tablet extended release 24 hr 25 mg PO BID aspirin 81 mg Tablet,Delayed Release (Dr/Ec) 81 mg PO DAILY losartan 50 mg tablet 50 mg PO DAILY duloxetine 30 mg capsule,delayed release(DR/EC) 30 mg PO DAILY Patient Comments: TAKE 1 CAPSULE BY MOUTH EVERY DAY Discontinued fish,bora,flax oils-om3,6,9no1 1,200 MG capsule 2,400 mg PO DAILY cephalexin 500 mg Capsule 500 mg PO Q12 9 Days Qty: 18 0RF cephalexin [cephalexin] 500 mg capsule 500 mg PO Q6 Qty: 40 0RF metolazone 5 mg tablet 5 mg PO DAILY Patient Comments: TAKE 1 TABLET BY MOUTH EVERY DAY potassium chloride 10 mEq capsule, extended release 10 meq PO DAILY Patient Comments: TAKE 1 CAPSULE BY MOUTH EVERY DAY Referrals / Follow Up: Fausto Noble PA [Primary Care Provider] - Disposition Disposition (needs filled in before D/C Order can be placed): Inpatient Rehab Unit/Facility Charges/Coding Visit Charges Inpatient E&M: 24993 Disch Hosp >30min
--- NOTE | 2022-12-18 17:17 | CASEMGMT ---
Discharge Planning Discharge instructions and pickup time sent to [facility] via [facility]. also left with Tali @ [facility] regarding pickup time. [facility] will transport patient by cot at 9:30p. SW notified.
--- NOTE | 2022-12-18 17:18 | CASEMGMT ---
Social Work [facility] and [facility] able to accept pt. Pt choosing [facility]. [facility] is able to accept today. Physician updated and pt is ready for discharge. Discharge orders sent to [facility] via [facility]. 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 Pt updated and agreeable and will notify family. RN and [facility] updated on pickup time. Disposition: [facility] AFSHAN De Paz
[2022-12-18 19:52] VITALS: BP 136/44; PULSE 75; RESP 18; TEMP 36.8; O2SAT 100
[2022-12-18] MEDS: DULoxetine Hcl 30 MG Capsule PO (21:08)
[2022-12-18 21:12] VITALS: BP 136/44; PULSE 75
--- NOTE | 2022-12-18 21:24 | NURSING ---
report given to [facility] and talked with Caroline skaggs
--- NOTE | 2022-12-18 22:40 | NURSING ---
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
--- NOTE | 2022-12-18 23:19 | NURSING ---
received call from [facility] asking when pt left. informed them that she has not left yet and the squad should be here any minute per physicians when i talked with them at 2230. [facility] stated that if pt is not in their facility by midnight then they can not take her tonight. Placed [facility] on hold and called physicians - which stated that the squad should be here anytime. asked if they would be able to make it to [facility] before Midnight. dispatcher looked it up and states that it is a 47min ride and with it being 2311 that they would not make it. so i cancelled the trip and set up a new time for 12/19 at 8am. Hung up with physicians and spoke with [facility] to let them know she would not make it by midnight and that they will pick her up tomorrow 12/19 at 8am. [facility] is in agreeance with this.
--- NOTE | 2022-12-18 23:54 | NURSING ---
[facility] showed up to floor at 2325. Informed them that they could not take the pt that she has to be at [facility] by Midnight and since they wont make it the pt cannt leave. [facility] called their dispatch and they stated that physicians just told them. [facility] left for their next trip.
[2022-12-19 02:57] VITALS: BP 127/64; PULSE 70; RESP 16; TEMP 36.5; O2SAT 96
[2022-12-19] MEDS: Levothyroxine 112 MCG Tablet PO (05:29)
[2022-12-19 06:52] VITALS: BP 116/51; PULSE 68; RESP 16; TEMP 37; O2SAT 98
[2022-12-19 07:00] VITALS: O2SAT 98
--- NOTE | 2022-12-19 09:10 | PN.HOSP_ITS ---
Reason for Visit Reason for Visit: Diagnoses Anterior dislocation of right humerus, initial encounter (12/14/22) Anterior dislocation of unspecified humerus, initial encounter (12/14/22) Contusion of unspecified knee, initial encounter (12/14/22) Subjective Subjective The date of this entry should be 12/18/2022: Patient was seen and examined today, I talked extensively with social worker aide, they were able to get the patient accepted into a rehab unit at [facility] in [place], patient is due to be transferred this evening to the facility. I elected to restart patient's Lasix due to continued edema in the feet bilaterally, she does have chronic lymphedematous changes in the legs. Objective Data Objective Data Vital Signs: Vital Signs Temp Pulse Resp BP Pulse Ox O2 Del Method O2 Flow Rate 98.6 F 68 16 116/51 L 98 Room Air 10 12/19/22 06:52 12/19/22 06:52 12/19/22 06:52 12/19/22 06:52 12/19/22 07:00 12/19/22 07:00 12/14/22 21:05 Oxygen Flow Rate (L/min) [2] 10 Oxygen Flow Rate (L/min) 2 Oxygen Delivery Method [2] Non-Rebreather Oxygen Delivery Method Room Air Weight: 117.48 kg Body Mass Index (BMI) 48.9 Intake & Output: Intake and Output for Last 24 Hours 12/17/22 12/18/22 12/19/22 23:59 23:59 23:59 Intake Total 250 / 250 550 / 550 Output Total 500 / 500 550 / 550 Balance -250 / -250 0 / 0 Lab / Micro Data 12/18/22 05:50 12/17/22 06:02 Labs: Laboratory Results - last 24 hr 12/18/22 05:50: Iron 23 L, TIBC 301, Iron Saturation 7.6 L Physical Exam Const alert, oriented x3 and no apparent distress Constitutional Narrative: Patient is morbidly obese General Appearance: cooperative, well kempt and well developed Orientation / Consciousness: awake, oriented to person, oriented to place and oriented to time HEENT normocephalic, head/scalp atraumatic and moist oral mucous membranes Eyes PERRL, EOMs intact bilaterally and conjunctivae normal Neck supple, no JVD, thyroid normal and no carotid bruits General: trachea midline Resp normal respiratory effort, no retractions, no use of accessory muscles and clear to auscultation bilaterally Auscultation: Negative for rales, rhonchi or wheezes Cardio regular rate, regular rhythm, S1 normal heart sound, S2 normal heart sound, no murmurs, no rub and no gallops GI normal to inspection, nondistended, normoactive bowel sounds, soft to palpation, non-tender and non-distended Extremity Extremity Narrative: Generalized lymphedematous changes are noted over the lower legs bilaterally, there is also edema in the feet noted which is pitting edema. Skin Skin Narrative: Patient has bilateral contusions of the patellar areas Neuro oriented x3, CN's II-XII intact bilaterally, moves all extremities, no focal motor deficits and no sensory deficits noted Sensorium / Orientation: awake, alert, oriented to person, oriented to place and oriented to time Speech: speech normal Psych affect normal Assessment & Plan Assessment/Plan (1) Acute hypokalemia: (2) Anterior shoulder dislocation: QUALIFIERS: Encounter type: initial encounter Laterality: right Qualified Code(s): S43.014A - Anterior dislocation of right humerus, initial encounter PLAN: Plan 1. Acute debility status post mechanical fall at home with resultant right anterior shoulder dislocation, status post reduction-continue PT and OT, patient is wearing a sling in her right arm for support, patient is due to be tra nsferred to a rehab facility in [place] for inpatient rehab services. #2 acute kidney injury-continue present treatment, monitor creatinine #3 Hypokalemia-corrected at this time #4 essential hypertension-patient's losartan and metolazone and Lasix are being held secondary to her PIERRE, continue monitor blood pressure #5 hypothyroidism-patient on Synthroid #6 chronic anemia-etiology unclear at this point, I will order iron studies and the patient #7 morbid obesity-complicates care, medical course, recovery, and prognosis #8 spondylolisthesis at L4-5 with central and bilateral foraminal stenosis, mild bilateral foraminal stenosis at [id number] care, medical course, recovery, and prognosis #9 chronic lymphedema with chronic foot edema-again I have elected to start the patient's Lasix again, she will need to be monitored at the rehab facility for any renal changes. Total clinical time spent by myself addressing patient's medical issues, reviewing all of her data, and collaborating with patient's care team: 35 minutes Charges/Coding Visit Charges Inpatient E&M: 39298 Subs Hosp L2
[2022-12-19] MEDS: Allopurinol 100 MG Tablet PO (09:14)
[2022-12-19] MEDS: APIXABAN 5 MG TABLET PO (09:14)
[2022-12-19 09:15] VITALS: PULSE 70
[2022-12-19] MEDS: Aspirin E.C. 81 MG Tablet PO (09:15)
[2022-12-19] MEDS: Metoprolol(XL)Succ 25 MG Tablet PO (09:15)
== END 2022-12-19 09:36 ==
LOC: ED 22:39 → MS3 22:54
PROVIDERS: Family Medicine; Admitting Provider Hospitalist; Emergency Provider Emergency Medicine; PCP Physician Assistant; Visit Provider Internal Medicine
DX: S43.014A Anterior dislocation of right humerus, initial encounter (principal); N17.9 Acute kidney failure, unspecified; E66.01 Morbid (severe) obesity due to excess calories; Z68.44 Body mass index [BMI] 60.0-69.9, adult; N18.9 Chronic kidney disease, unspecified; S80.02XA Contusion of left knee, initial encounter; W19.XXXA Unspecified fall, initial encounter; Z79.01 Long term (current) use of anticoagulants; Z60.2 Problems related to living alone; I12.9 Hypertensive chronic kidney disease with stage 1 through stage 4 chronic kidney disease, or unspecified chronic kidney disease; Z79.82 Long term (current) use of aspirin; R62.7 Adult failure to thrive; E87.6 Hypokalemia; S80.01XA Contusion of right knee, initial encounter; R53.81 Other malaise; R60.0 Localized edema; M10.9 Gout, unspecified; I89.0 Lymphedema, not elsewhere classified; Z86.718 Personal history of other venous thrombosis and embolism; Z79.899 Other long term (current) drug therapy; E03.2 Hypothyroidism due to medicaments and other exogenous substances; Z79.890 Hormone replacement therapy
CPT/HCPCS: 23650; 36415; 73020; 73562; 80048; 83540; 83550; 83735; 84100; 85014; 85018; 85025; 85027; 96361; 96365; 96366; 96375; 97110; 97112; 97162; 97165; 97530; 97535; 99152; 99221; 99285; J7030; A4216; G0378; J2405

== ENCOUNTER → 2023-01-11 | Outpatient (CLI) | payer MEDICARE, OTHER, SELFPAY ==
[2023-01-11 09:19] LABS: Absolute Neutrophil Count 4.7 X10^3/uL (2.0-7.7); Basophil# 0.03 X10^3/uL; Basophil% 0.5 % (0-1); Eosinophil# 0.16 X10^3/uL; Eosinophils% 2.6 % (0-5); Hematocrit 36.5 % (37-47); Hemoglobin 11.1 g/dL (12.0-15.0); Lymphocyte % 12.9 % (19-41); Mean Corp Hgb Conc 30.4 g/dL (32-36); Mean Corpuscular Hgb 28.8 pg (27.0-32.0); Mean Corpuscular Volume 94.6 fL (81-99); Mean Platelet Vol. 10.8 fl (6.2-12.0); Monocyte# 0.48 X10^3/uL; Monocyte% 7.7 % (0-10); NRBC Flagged by Analyzer 0 % (0-5); Neutrophil # 4.71 X10^3/uL (2.7-7.7); Neutrophil % 75.8 % (47-70); Platelet Count 245 K/mm3 (150-450); RBC Distribution Width CV 15.4 % (11.6-14.6); RBC Distribution Width SD 53.2 fl (35.1-43.9); Red Blood Count 3.86 M/mm3 (4.2-5.4); White Blood Count 6.2 K/mm3 (4.4-11.0)
[2023-01-11 09:52] LABS: ALB/GLOB Ratio 0.6 RATIO (0.9-2.4); AST(SGOT) 13 U/L (15-37); Alanine Aminotransfer ALT/SGPT 16 U/L (13-56); Albumin, Serum 2.8 g/dL (3.2-5.0); Alkaline Phosphatase 51 U/L (45-117); Anion Gap 6 (5-15); BUN 36 mg/dL (7-18); BUN/Creat Ratio 28.8 RATIO (10-20); Calcium,Total 9.1 mg/dL (8.5-10.1); Chloride 106 mmol/L (98-107); Cholesterol 145 mg/dL (200); Creatinine, Serum 1.25 mg/dL (0.55-1.02); EST Glomerular Filtration Rate 44 mL/min (>60); Est Glom Filt Rate - Afr Amer 54 mL/min (>60); Globulin 4.4 g/dL (2.2-4.2); Glucose 107 mg/dL (74-106); High Density Lipoprotein 61 mg/dL; Potassium 3.6 mmol/L (3.5-5.1); Protein, Total 7.2 g/dL (6.4-8.2); Sodium Level 141 mmol/L (136-145); Thyroid Stim Hormone (TSH) 3.52 uIU/mL (0.358-3.74); Triglycerides 86 mg/dL; Very Low Density Lipoprotein 17 mg/dL (5-40)
== END | disposition home or self-care (01) ==
LOC: LAB 04:03
PROVIDERS: PCP Physician Assistant; Referring Provider Physician Assistant; Visit Provider Physician Assistant
DX: Z00.01 Encounter for general adult medical examination with abnormal findings (principal); R60.9 Edema, unspecified; I10 Essential (primary) hypertension; E03.9 Hypothyroidism, unspecified
CPT/HCPCS: 36415; 80053; 80061; 84443; 85025

== ENCOUNTER → 2023-04-14 | Outpatient (CLI) | payer MEDICARE, OTHER, SELFPAY ==
--- NOTE | 2023-04-14 13:48 | VDLE_ITS ---
Reason For Study: BLE Swelling RIGHT LEFT CFV is compressible, spontaneous, phasic, CFV is compressible, phasic, and INCOMPETENT competent and demonstrates normal for greater than 1.0 second. augmentation. FV is compressible, phasic, and INCOMPETENT FV is compressible, phasic, and INCOMPETENT for greater than 1.0 second. for greater than 1.0 second. POP V is compressible, phasic, and POP V is compressible, phasic, and INCOMPETENT for greater than 1.0 second. INCOMPETENT for greater than 1.0 second. SFJ is competent and measures 0.88 cm. SFJ is competent and measures 0.79 cm. GSV proximal thigh measures 0.88 x 0.90 cm. GSV proximal thigh measures 0.62 x 0.62 cm. GSV at knee measures 0.62 x 0.68 cm. GSV at knee measures 0.65 x 0.67 cm. GSV is competent throughout. GSV is competent throughout. SSV proximal calf is competent and measures SSV proximal calf is competent and measures 0.29 x 0.31 cm. 0.30 x 0.34 cm. Vein wall thickening noted in FV, Pop V and Calf veins visualized in segments due to T/P Trunk. swelling and edema. Calf veins visualized in segments due to Procedure swelling and edema. This is a venous duplex using B-mode, color flow and spectral Doppler. Exam performed in department. The exam was diagnostic. The study was technically difficult. VL/Venous Duplex US - Pérez Extrem Interpretation Summary Deep veins of the bilateral lower extremities are patent and compressible segme ntally. There is no evidence of bilateral lower extremity deep vein thrombosis. The bilateral great saphenous veins appear patent and compressible segmentally. Positive for reflux in the right femoral vein, popliteal vein Positive for reflux in the left common femoral vein, femoral vein, popliteal ve in Ordering Physician: Nehal Miller Referring Physician: Fausto Noble Performed By: Beto Clements, RVT
--- NOTE | 2023-04-14 13:48 | CDU_ITS ---
Reason For Study: Rt Carotid Bruit Rt. Velocities/BP Lt. Velocities/BP Prox CCA 137.7/11.6 cm/sec. Prox CCA 105.2/13.9 cm/sec. Mid CCA 152.1/18.8 cm/sec. Mid CCA 79.6/10.2 cm/sec. Dist CCA 86.4/17.0 cm/sec. Dist CCA 77.8/13.9 cm/sec. Prox ICA 63.0/14.6 cm/sec. Prox ICA 45.0/9.1 cm/sec. Mid ICA 58.5/13.4 cm/sec. Mid ICA 85.3/25.9 cm/sec. Dist ICA 70.2/20.4 cm/sec. Dist ICA 87.4/27.4 cm/sec. Rt. ICA/CCA = 0.5. Lt. ICA/CCA = 1.1. Prox ECA 85.5/6.9 cm/sec. Prox ECA 64.4/0.0 cm/sec. Rt. Vert. 52.0/10.1 cm/sec. Lt. Vert. 37.4/9.1 cm/sec. Right Extracranial There is homogeneous, smooth atherosclerotic plaque noted in the right common carotid artery. The tortuous nature of the right common carotid artery may result in flow velocities overestimating the degree of stenosis. There is heterogeneous, irregular atherosclerotic plaque noted in the right internal carotid artery. There is intimal thickening but no significant atherosclerotic plaque noted in the right external carotid artery. Antegrade flow is noted in the right vertebral artery. Left Extracranial There is homogeneous, smooth atherosclerotic plaque noted in the left common carotid artery. There is heterogeneous, irregular atherosclerotic plaque noted in the left internal carotid artery. There is intimal thickening but no significant atherosclerotic plaque noted in the left external carotid artery. Antegrade flow is noted in the left vertebral artery. Procedure Carotid Duplex 53594. This is a Carotid Duplex examination using B-mode, color flow and specral Doppler. The exam was diagnostic. Exam performed in department. VL/Carotid Duplex Ultrasound Interpretation Summary Mild (<50%) stenosis right extracranial internal carotid. Mild (<50%) stenosis left extracranial internal carotid. Patent and antegrade vertebrals bilaterally. Ordering Physician: Nehal Miller Referring Physician: Fausto Noble Performed By: Beto Clements RVT
== END | disposition home or self-care (01) ==
LOC: CVS 13:47
PROVIDERS: PCP Physician Assistant; Referring Provider Physician Assistant; Visit Provider Physician Assistant
DX: R09.89 Other specified symptoms and signs involving the circulatory and respiratory systems (principal); R60.0 Localized edema
CPT/HCPCS: 93880; 93970

== ENCOUNTER 2023-05-27 06:47 | Day surgery (SDC) | payer MEDICARE, OTHER, SELFPAY ==
[2023-05-26 07:05] VITALS: BMI 50.2
[2023-05-27 07:05] LABS: Hematocrit 39.9 % (37-47); Hemoglobin 12.2 g/dL (12.0-15.0); Mean Corp Hgb Conc 30.6 g/dL (32-36); Mean Corpuscular Hgb 27.3 pg (27.0-32.0); Mean Corpuscular Volume 89.3 fL (81-99); Platelet Count 223 K/mm3 (150-450); RBC Distribution Width CV 15.9 % (11.6-14.6); RBC Distribution Width SD 51.9 fl (35.1-43.9); Red Blood Count 4.47 M/mm3 (4.2-5.4); White Blood Count 5.1 K/mm3 (4.4-11.0)
--- OUTSIDE RECORDS SUMMARY | 2023-05-27 07:09 | XMS RPT_ITS | CCD ---
Author Name Unknown Address [address] [place] [address] Organization [facility] Care Team Providers Care Meal Cook Name Role Phone SHALAALFREDO OAKLEY Nelli Ferreira MD, Javed Castillo Primary Care Provider Allergies Allergy Classification Reported Allergen(s) Allergy Type Date of Onset Reaction(s) Facility (4 sources) sulfadoxine; Translations: [SULFADOXINE] Drug Allergy 0 Rash [facility] Repository (4 sources) Sulfonamides (Antibiotic); Translations: [SULFA (SULFONAMIDE ANTIBIOTICS)] Propensity to adverse reactions to drug (disorder) 6 Intolerance [facility] Repository (4 sources) traMADol; Translations: [TRAMADOL HCL] Drug Allergy 0 Rash [facility] Repository (3 sources) carvedilol; Translations: [CARVEDILOL] Drug Allergy 8 Unknown [facility] (3 sources) olmesartan; Translations: [OLMESARTAN] Drug Allergy 8 Unknown, Shortness of Breath [facility] (3 sources) traMADol; Translations: [TRAMADOL] Drug Allergy 8 Rash, Hives [facility] Medications Completed/Discontinued Medications Medication Drug Class(es) Dates Sig (Normalized) Sig (Original) allopurinol 300 mg oral tablet (2 sources) Xanthine Oxidase Inhibitor allopurinol (ZYLOPRIM) 300 mg tablet Take 100 mg by mouth twice daily. 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] Onset: 08-02-2018 08-02-2018 Chronic Complications of surgical procedures or medical care (2 sources) Postoperative hypothyroidism; Translations: [Postprocedural hypothyroidism] Onset: 04-09-2007 04-09-2010 Chronic Disorders of lipid metabolism (2 sources) Hyperlipidemia; Translations: [Hyperlipidemia, unspecified] Onset: 12-11-2013 06-09-2021 Chronic Essential hypertension (3 sources) Essential (primary) hypertension; Translations: [Hypertensive disorder] Onset: 04-09-2010 08-09-2014 Chronic Glaucoma (2 sources) Glaucoma; Translations: [Unspecified glaucoma] Onset: 12-11-2013 06-09-2021 Chronic Other diseases of veins and lymphatics (2 sources) Lymphedema; Translations: [Lymphedema, not elsewhere classified] Onset: 01-02-2015 01-02-2015 Chronic Other inflammatory condition of skin (2 sources) Scalp psoriasis; Translations: [Psoriasis, unspecified] Onset: 04-08-2011 06-09-2021 Chronic Other nutritional; endocrine; and metabolic disorders (2 sources) Body mass index 40+ - severely obese; Translations: [Morbid (severe) obesity due to excess calories] Onset: 12-11-2013 08-09-2014 Chronic Thyroid disorders (1 source) Hypothyroidism, unspecified; Translations: [Hypothyroidism, unspecified] Onset: 02-15-2018 Chronic Unclassified (1 source) Edema, unspecified; Translations: [Edema, unspecified] Onset: 02-15-2018 Episodic Past or Other Problems Problem Classification Problem Date Documented Date Episodic/Chronic Other diseases of veins and lymphatics (2 sources) Vascular insufficiency; Translations: [Venous insufficiency (chronic) (peripheral)] Onset: 01-02-2015 01-02-2015 Episodic Spondylosis; intervertebral disc disorders; other back problems (2 sources) Neck pain; Translations: [Cervicalgia] Onset: 12-11-2013 06-09-2021 Episodic Results Test Name Value Interpretation Reference Range Facil ity Encounters Encounter Date Encounter Type Care Provider Facility Start: 04-23-2023 Documentation procedure Mammog michelle Coordinator [facility] Start: 04-23-2023 Letter encounter Mammography Coordinator [facility] Department Start: 04-22-2023 End: 04-22-2023 ambulatory ALFREDO Benton [facility] Facility:[facility] Start: 04-22-2023 End: 04-22-2023 Subsequent hospital visit by physician Screen Mammo [facility] Mammogram Start: 02-15-2018 Patient encounter ALFREDO Allan [facility] Plan of Treatment Date Care Activity Detail Author Start: 02-12-2023 Covid-19 Vaccine ( season) Covid-19 Vaccine () [facility] Start: 06-14-2022 Advance Directive Discussion Advance Directive Discussion [facility] Start: 06-14-2022 Depression Assessment Depression Ass essment [facility] Start: 09-02-2021 Diabetes Screening Diabetes Screenin g [facility] Start: 05-14-2021 Urine microalbumin profile DTa P,Tdap,Td Vaccine (2 - Td or Tdap) [facility] Start: 01-21-2012 Shingrix Vaccine (2 of 3) Connors grix Vaccine (2 of 3) [facility] Start: 2006 RSV Vaccine (1 - 1-d ose 60+ series) RSV Vaccine (1 - 1-dose 60+ series) [facility] Start: 02-20-1964 Annual PCP Team Abrasive Mixer zuri Disease Visit Annual PCP Team Chronic Disease Visit [facility] Start: 02-20-1964 BP Controlled (<130/80) BP Controlle d (<130/80) [facility] Start: 02-20-1964 Hepatitis C Screening Hepatitis C Sc [facility] Immunizations Immunization Date Immunization Notes Care Provider Fa cility 03-15-2014 influenza virus vacc ine, unspecified formulation Screen [facility] 11-26-2011 zoster vaccine, live Screen [facility] 05-14-2011 pneumococcal polysac charide vaccine, 23 valent Screen [facility] 05-14-2011 tetanus toxoid, redu han diphtheria toxoid, and acellular pertussis vaccine, adsorbed Screen [facility] 03-19-2011 influenza virus vacc ine, unspecified formulation Screen [facility] Payers Date Payer Category Payer Private Health Insurance [facility] [employer] [id number] 2015-Present [phone] [address] [place] [address] Indemnity [id number] 2015 Unknown [id number] 2011 Medicare MEDICARE MEDICAR E A AND B [id number] 2011-Present [phone] [place] [address] Medicare [id number] 2011 Medicare [id number] Social History Date Type Detail Facility Start: 09-02-2018 Tobacco smoking stat us AZIS Never smoked tobacco [facility] History of tobacco use Cigarette Smoker C [facility] History of tobacco use Passive smoker [facility] Start: 09-02-2018 Tobacco use and exposure Smoke less tobacco non-user [facility] Start: 09-20-2018 Alcohol intake Current non-dr instrument setter of alcohol (finding) [facility] Start: 09-20-2018 End: 05-19-2020 History of Social function [facility] Start: 09-20-2018 End: 05-19-2020 Tobacco use panel [facility] National Score (1-10 0), lower number is lower risk Not on file [facility] Start: 1945 Sex Assigned At Female C [facility] Start: 04-12-2021 Gender identity Identifies as female gender (finding) [facility] Start: 04-12-2021 Sexual orientation Heterosexual (fin ding) [facility] Note 04-23-2023 Letter - Coordinator, Mammography - 04/23/2023 2:49 PM EST Note Date & Type Note Facility 04-23-2023 Miscellaneous Notes Formattin g of this note might be different from the original. April 26, 2023 PID: [id number] Chelsey Mcgee [address] [facility] [address] [place] [address] Dear Ms. Mcgee, We are pleased to inform you that the results of your recent breast imaging exam on 04/22/2023 are normal. Early detection of cancer is very important. We also understand recommendations regarding breast cancer screening are controversial. Please discuss with your primary care provider which strategy is best for you and whether a mammogram is right for you. Your imaging studies and report will be kept on file at [facility] as part of your permanent medical record and are available for your continuing care. Thank you for allowing us to help in meeting your health care needs. Sincerely, Dr. Swartz Interpreting Radiologist (Normal over 40) documented in this encounter [facility] Progress note 04-22-2023 Note Date & Type Note Facility 04-22-2023 Note HNO ID: [id number] Author: Liliana Veliz Mammo Tech Service: ? Author Type: Ribbon Cleaner Type: Progress Notes Filed: 04/22/2023 10:33 AM Note Text: Radiology Service Progress Note PATIENT NAME: Chelsey Mcgee DATE OF SERVICE: April 22, 2023 TIME: 9:28 AM PATIENT IDENTITY VERIFICATION COMPLETED USING TWO (2) IDENTIFIERS: Name and Date of confirmed by patient verbally. FALL SCREENING: Has the patient had 2 falls in the last year or 1 fall with injury or currently using an Ambulatory Assistive Device (Walker, Cane, Wheelchair, Crutches, etc.)? No PATIENT GENDER DATA: Female. status: : No status: NO. PATIENT RELEVANT IMPLANT DATA REVIEWED: Not Applicable RADIOLOGY DEPARTMENT: Mammography PERIPHERAL IV DATA: Not applicable SIGNED BY: Gaby Clark April 22, 2023 9:28 AM [facility] History of Present illness Narrative 04-22-2023 Liliana Veliz Mammo Tech - 04/22/2023 9:10 AM EST Note Date & Type Note Facility 04-22-2023 History of Presen t illness Narrative Radiology Service Progress Note PATIENT NAME: Chelsey Mcgee DATE OF SERVICE: April 22, 2023 TIME: 9:28 AM PATIENT IDENTITY VERIFICATION COMPLETED USING TWO (2) IDENTIFIERS: Name and Date of confirmed by patient verbally. FALL SCREENING: Has the patient had 2 falls in the last year or 1 fall with injury or currently using an Ambulatory Assistive Device (Walker, Cane, Wheelchair, Crutches, etc.)? No PATIENT GENDER DATA: Female. status: : No status: NO. PATIENT RELEVANT IMPLANT DATA REVIEWED: Not Applicable RADIOLOGY DEPARTMENT: Mammography PERIPHERAL IV DATA: Not applicable SIGNED BY: Gaby Clark April 22, 2023 9:28 AM documented in this encounter [facility] History of Past illness Narrative 05-28-2014 Note Date & Type Note Facility documented as of this encounter (statuses as of 04/23/2023) [facility] History of Past illness Narrative 05-28-2014 Note Date & Type Note Facility documented as of this encounter (statuses as of 04/27/2023) [facility] Summary Purpose Family History No Family History Records FoundNo Family History Records FoundNo Family History Records Found Advance Directives No Advanced Directives Records FoundNo Advanced Directives Records FoundNo Advanced Directives Records Found Additional Source Comments INFORMATION SOURCE (unrecogn ized section and content) DATE CREATED AUTHOR AUTHOR'S ORGANIZ ATION 04/03/2023 [facility] DATE CREATED AUTHOR AUTHOR'S ORGANIZ ATION 04/27/2023 [facility] Source Comments (unrecognize d section and content) In the event this informatio n is protected by the Federal Confidentiality of Alcohol and Drug Abuse Patient Records regulations: The Federal rules restrict any use of the information to criminally investigate or prosecute any alcohol or drug abuse patient.[facility] the event this information is protected by the Federal Confidentiality of Alcohol and Drug Abuse Patient Records regulations: The Federal rules restrict any use of the information to criminally investigate or prosecute any alcohol or drug abuse patient.[facility] Care Teams (unrecognized sec tion and content) Meal Cook Relationship Specialty Start Date End Date Javed Ferreira MD PCP - General Family Medicine 01/14/16 FOR RECORDS PERTAINING TO PATIENTS WHO ARE OR HAVE BEEN ENROLLED IN A CHEMICAL DEPENDENCY/SUBSTANCEABUSE PROGRAM, SOME INFORMATION MAY BE OMITTED. This clinical summary was aggregated from multiple sources. Caution should be exercised in using it in the provision of clinical care. This summary normalizes information from multiple sources, and as a consequence, information in this document may materially change the coding, format and clinical context of patient data. In addition, data may be omitted in some cases. CLINICAL DECISIONS SHOULD BE BASED ON THE PRIMARY CLINICAL RECORDS. [employer] provides no warranty or guarantee of the accuracy or completeness of information in this document.
[2023-05-27 07:19] LABS: Anion Gap 5 (5-15); BUN 36 mg/dL (7-18); BUN/Creat Ratio 32.7 RATIO (10-20); Chloride 110 mmol/L (98-107); EST Glomerular Filtration Rate 51 mL/min (>60); Est Glom Filt Rate - Afr Amer 62 mL/min (>60); Estimated Creatinine Clearance 32.32 ml/min; Glucose 111 mg/dL (74-106); Potassium 4.2 mmol/L (3.5-5.1); Sodium Level 143 mmol/L (136-145)
--- NOTE | 2023-05-27 10:19 | PCM.OPRPT ---
Report of Operation Date of Procedure: 05/27/23 Pre-Operative Diagnosis: venous insufficiency Post-Operative Diagnosis: same Surgery/Procedure Performed:: Venogram IVC IVUS IVC, bilateral common/external iliac veins Angioplasty/stent IVC, bilateral common iliac/external iliac veins Surgeon: Eulalio Barnes Type of Anesthesia: Sedation,Conscious Estimated Blood Loss (mL): 3 Description of Procedure: HPI: Patient is a 78-year-old female with prior unprovoked deep venous thrombosis as well as bilateral lower extremity significant edema and skin changes. She has significant bilateral deep vein reflux with no superficial vein reflux. She presents now for venogram to assess for possible central venous obstruction. Description of procedure: Upon obtaining form consent and verification correct patient procedure site patient again to Magnetic Tape Typewriter Operator where she was positioned prepped and draped in usual fashion. Time was performed conscious sedation administered with Versed and fentanyl. Skin overlying the right common femoral vein was anesthetized with 1% lidocaine vessel accessed under ultrasound guidance with micropuncture needle wire. This then exchanged out for micropuncture sheath through which hand-injection ilio caval venogram was performed which confirmed satisfactory positioning no extravasation or dissection. Through the micropuncture sheath a Bentson wire was advanced and the micropuncture sheath exchanged out for a 10 Icelandic sheath. Next skin overlying the left common femoral vein was anesthetized 1% lidocaine the vessel accessed under sound guidance with micropuncture needle wire. There is then exchanged for micropuncture sheath through which injection ilio caval venogram was performed which revealed satisfactory placement no extravasation dissection. Through the micropuncture sheath a glide advantage wire was advanced and the micropuncture sheath exchanged for a 10 Icelandic sheath. Patient was in heparinized allowed circulate 3 minutes with serial ACT's performed to monitor for adequate anticoagulation. Intravascular ultrasound probe was then advanced via the left femoral access sheath and recorded pullback of the IVC, left common and external iliac veins was performed which revealed significant impression of the common iliac vein of approximately 75%. The ultrasound probe was then withdrawn and advanced via the right femoral access sheath and recorded pullback of the IVC, right common and external iliac veins was performed. This revealed greater than 50% compression of the right external iliac vein. 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 Is uncertain if this was due to compression from body habitus or if it was impaired inflow via the compressed iliac veins. [place] that the pattern of compression warranted treatment in the stenting of the bilateral iliacs extending into the vena cava would adequately treat her disease. Intravascular probe was then used to identify the vena cava confluence and anatomic relationship to compression and normal segments of vein for our stent landing zones. Length measurements of the segments to be treated also were obtained and is felt that the extensive length required 2 stents per side in order to adequately treat. First a 14 mm x 80 Bard Venovo stent was advanced into the right external iliac vein and deployed. A 16 x 80 Bard Venovo was then advanced into the left external iliac vein and deployed. Next a 16 x 140 Bard Venovo was advanced via the right femoral access sheath and advanced with satisfactory overlap into the initial stent and satisfactory endpoint into the vena cava. Finally a 16 x 160 Bard Venovo was advanced via the left femoral access sheath into position with satisfactory overlap into the initial stent and alignment with the stent delivery from the right femoral access sheath in the midportion of the vena cava. The stents were then deployed simultaneously maintaining alignment at the proximal endpoint and with satisfactory overlap into the external iliac stents. After the delivery a pair of Bard Whiteface 14 x 40 angioplasty balloons were then advanced simultaneously via the femoral access sheaths and the stents postdilated to nominal along the entirety of the length. Intravascular sound probe was then advanced first via the right femoral access sheath and recorded pullback performed of the vena cava and the stented common and external iliac veins. There is then withdrawn and advanced via the left femoral access sheath and recorded pullback performed again of the IVC and the stented segments of the common and external iliac veins. This revealed satisfactory stent to wall apposition throughout with resolution of the compression both of the left common iliac and right external iliac veins. There is also better lumen expansion of the vena cava throughout the entirety up to the retrohepatic segment. Completion venogram via each of the femoral access sheath simultaneously revealed brisk contrast transit with no extravasation or dissection. Seeing no further need for further intervention the wires were withdrawn and a silk U-stitch placed at each of the access sites after which the suture was secured and the sheath withdrawn and manual pressure held for 5 minutes. After which there was satisfactory stasis and the patient was taken to recovery for bedrest prior to discharge home.
[2023-05-27 12:25] LABS: ACT Activated Clotting Time 273 sec (74-137)
[2023-05-27 12:26] LABS: ACT Activated Clotting Time 249 sec (74-137)
== END 2023-05-27 13:08 | disposition home or self-care (01) ==
PROVIDERS: PCP Physician Assistant; Referring Provider Surgery Trauma Surgery; Visit Provider Surgery Trauma Surgery
DX: I77.1 Stricture of artery (principal); E66.01 Morbid (severe) obesity due to excess calories; I87.2 Venous insufficiency (chronic) (peripheral); I10 Essential (primary) hypertension; E03.2 Hypothyroidism due to medicaments and other exogenous substances; M19.90 Unspecified osteoarthritis, unspecified site; H40.9 Unspecified glaucoma; M10.9 Gout, unspecified; Z79.899 Other long term (current) drug therapy; Z79.01 Long term (current) use of anticoagulants; Z86.718 Personal history of other venous thrombosis and embolism
CPT/HCPCS: 36415; 37238; 37239; 37252; 37253; 76937; 80048; 85027; 85347; 99152; 99153; C1753; C1769; C1894; J7040; Q9967; C1725; C1876; C1887

== ENCOUNTER → 2023-10-07 | Outpatient (CLI) | payer MEDICARE, OTHER, SELFPAY ==
--- NOTE | 2023-10-07 14:45 | RAD_ITS ---
STUDY: X-RAY - RIGHT SHOULDER REASON FOR EXAM: Female, 78 years old. Right shoulder pain. TECHNIQUE: 4 view(s) of the shoulder. COMPARISON: None. FINDINGS: Osteopenia. Mild arthrosis of the glenohumeral joint. Mild arthrosis of the AC joint. Normal acromion. Slight inferior displacement of the humeral head in relation to the glenoid. Normal soft tissues. Normal visualized pulmonary apex. RAD/Shoulder min 2 Views IMPRESSION: Osteopenia with osteoarthritic changes. Slight inferior displacement of the humeral head in relation to the acromion. No acute finding. Electronically Signed: Cory Snell MD at 15:41 EDT ,
== END | disposition home or self-care (01) ==
LOC: RAD 14:39
PROVIDERS: PCP Physician Assistant; Referring Provider Physician Assistant; Visit Provider Physician Assistant
DX: M25.511 Pain in right shoulder (principal)
CPT/HCPCS: 73030

== ENCOUNTER 2023-11-01 21:58 | Emergency (ER) | payer MEDICARE, OTHER, SELFPAY ==
[2023-11-01 21:58] VITALS: BP 143/71; PULSE 71; RESP 16; TEMP 36.4; O2SAT 99; BMI 52.2
--- NOTE | 2023-11-01 22:28 | CT_ITS ---
EXAM: CT HEAD WITHOUT INTRAVENOUS CONTRAST CLINICAL INDICATION: FALL TECHNIQUE: Multiple axial images were obtained of the head without intravenous contrast. This CT exam was performed using one or more of the following dose reduction techniques: automated exposure control, adjustment of the mA and/or kV according to patient size, and/or use of iterative reconstruction technique. COMPARISON: 09/13/2022 FINDINGS: BRAIN AND EXTRA-AXIAL SPACES: There is non-specific periventricular hypoattenuation which is most commonly related to chronic microvascular ischemic disease in a patient of this age. There is no mass, mass-effect, or shift of the midline structures. No evidence of acute infarct or acute intracranial hemorrhage. There is no evidence of pathologic extra-axial fluid. There is no hydrocephalus. Patent basal cisterns. BONES/JOINTS: Mild bilateral TMJ arthrosis. No discrete lytic or blastic abnormalities. VASCULATURE: Arteriosclerosis. SINUSES: No significant findings. MASTOID AIR CELLS: No significant effusion. ORBITS: Bilateral ocular lens extraction presumptively for the treatment of cataracts. Otherwise, no acute orbital pathology. CT/Brain/Head without Contrast IMPRESSION: No acute findings in the head/brain. Electronically Signed: Trell Salinas DO at 23:10 EDT ,
--- NOTE | 2023-11-01 22:30 | EDS_ITS ---
HPI HPI - Fall History of Present Illness Chief Complaint: Fall Informant: patient and EMS Narrative Narrative: Patient states she was walking into her house and she somehow tripped and fell down 2 steps to concrete, with multiple injuries that she states hematomas everywhere. She denies being in any pain right now. She had a lot of nausea earlier but did not vomit and states it is better now. No headache. No loss of consciousness. Does not think she hit her head but is not sure. She is on clopidogrel no anticoagulants. She states she was not able to get up, she was twisted up. Paramedics helped her and once they did she was able to stand and bear weight without any difficulty. [facility] Medical History Fall Dyspnea on effort Abscess of right groin [facility] current use of anticoagulant Left leg DVT (03/2018) Dyspnea on minimal exertion Degenerative joint disease Gout Glaucoma Iatrogenic hypothyroidism Diastolic dysfunction Hypertension History of thyroid cancer Arthritis Morbid obesity Leg pain Swelling of lower extremity Edema of both legs Lymphedema of leg Home Medications ?Medication ?Instructions ?Recorded ?Last Taken ?Type timolol maleate 0.5 % eye drops 1 drp EACH EYE BID GLAUCOMA 01/07/16 08/10/22 History allopurinol 100 mg tablet 100 mg PO BID GOUT 04/13/18 08/10/22 History furosemide 40 mg tablet 40 mg PO DAILY FLUID 04/13/18 08/11/22 History levothyroxine 112 mcg tablet 112 mcg PO DAILY THYROID 05/16/18 05/27/23 History metoprolol succinate 25 mg 25 mg PO BID BLOOD PRESSURE 06/23/20 05/27/23 History tablet,extended release 24 hr aspirin 81 mg tablet,delayed 81 mg PO DAILY HEART HEALTH 08/11/22 05/27/23 History release nystatin 100,000 unit/gram topical 1 applic topical BID #0 grams 12/18/22 Unknown Rx powder (Nyamy) potassium chloride 20 mEq 20 meq PO DAILY #1 TAB 12/18/22 Unknown Rx tablet,extended release losartan 50 mg tablet 25 mg PO DAILY BLOOD PRESSURE 04/06/23 05/27/23 History clopidogrel 75 mg tablet (Plavix) 75 mg PO DAILY #90 tabs 08/17/23 Unknown Rx Allergy/AdvReac Type Severity Reaction Status Date / Time Sulfa (Sulfonamide Allergy Rash Verified 11/01/23 21:59 Antibiotics) tramadol HCl (From Ultram) Allergy Hives Verified 11/01/23 21:59 olmesartan AdvReac Severe sob, Verified 11/01/23 21:59 lightheaded budesonide (From Symbicort) AdvReac Intermediate affected Verified 11/01/23 21:59 eyesight (pt has glaucoma) carvedilol (From Coreg) AdvReac Intermediate I hear my Verified 11/01/23 21:59 heart pounding in my ears formoterol (From Symbicort) AdvReac Intermediate affected Verified 11/01/23 21:59 eyesight (pt has glaucoma) Family History Mother CAD (coronary artery disease) Hypertension Kidney disease Heart disease Thyroid disorder Daughter Cancer Sister Hypertension Sister Hypertension Surgical History History Incision and drainage abscess right groin History of bilateral knee replacement History of bilateral oophorectomies History of cholecystectomy History of hysterectomy History of total thyroidectomy Status post right and left heart catheterization Social History Smoking Status: Never smoker second hand exposure: Yes alcohol intake: never caffeine: Yes (hot chocolate) Type: other Number of servings: 1 ROS ROS ED Constitutional Constitutional ED: Denies chills or fever(s) Eyes Eyes: Denies change in vision or diplopia ENT ENT ED: Denies epistaxis, facial pain or rhinorrhea Cardiovascular Cardiovascular: Denies chest pain or palpitations Respiratory/Chest Respiratory/Chest: Denies dyspnea Gastrointestinal Gastrointestinal: Denies abdominal pain, diarrhea, melena, nausea or vomiting Musculoskeletal Musculoskeletal: Reports back pain; Denies neck pain Integumentary Reports as per HPI, Abrasions and other Details: Multiple contusions/hematomas ; Denies abscess, laceration or rash Neurologic Neurologic: Denies confusion, headache(s), paresthesias or weakness EXAM Physical Exam Const Vital Signs: 11/01/23 21:58 11/01/23 21:58 11/02/23 00:14 Temperature 97.6 F L 98 F Temperature Source Temporal Pulse Rate 71 74 Respiratory Rate 16 16 Respiratory Effort Normal Non-Labored Respiratory Depth Normal Respiratory Pattern Normal Blood Pressure 143/71 H 113/64 Blood Pressure Mean 95 80 Pulse Ox 99 99 95 Oxygen Delivery Method Room Air Room Air 11/02/23 01:00 11/02/23 01:39 11/02/23 01:40 Temperature Temperature Source Pulse Rate 67 72 75 Respiratory Rate 16 18 12 Respiratory Effort Respiratory Depth Respiratory Pattern Blood Pressure 144/77 H 137/67 H Blood Pressure Mean 99 86 Pulse Ox 98 95 96 Oxygen Delivery Method Room Air 11/02/23 01:45 Temperature Temperature Source Pulse Rate 73 Respiratory Rate 18 Respiratory Effort Respiratory Depth Respiratory Pattern Blood Pressure 127/66 H Blood Pressure Mean 84 Pulse Ox Oxygen Delivery Method Positive well nourished, well developed and obese General Appearance ED: well developed and NAD Nutritional Appearance: obese HEENT Reports TM's clear and nasal mucous membranes and turbinates normal atraumatic Face and Sinus: Negative for facial tenderness Tympanic Membrane ED: Yes TM's clear Eyes PERRL and EOMs intact bilaterally Visual Acuity: other Other Details: no entrapment or pain with extraocular movements Neck full ROM and supple General: Negative for tenderness Chest Wall inspection of chest normal and palpation of chest normal Chest: symmetrical chest wall rise; Negative for crepitus or tenderness Resp normal respiratory effort and clear to auscultation bilaterally Percussion: other equal BS bilat Cardio no murmurs Rate: regular rate Rhythm: regular rhythm GI normal to inspection, nondistended, normoactive bowel sounds, soft to palpation and non-tender Back/Spine normal ROM Back/Spine Narrative: There is a broad-based contusion and hematoma with abrasion on the upper mid back that is mildly tender to palpation. Not able to evaluate for step-offs due to the size of the hematoma and obesity. No other signs of back trauma. Cervical Spine: Negative for cervical spine tenderness Thoracic Spine / Upper Back: thoracic spinal tenderness Lumbar Spine / Lower Back: Negative for lumbar spinal tenderness Extremity normal to inspection and full ROM Extremity Narrative: Tenderness where there are hematomas: Right dorsal proximal forearm, left ulnar aspect of the wrist and proximal half of the fifth metacarpal, right distal lateral thigh. All joints move without any pain or limitation of all 4 extremities. No other signs of trauma. Pelvis stable to AP compression and no pain there or the hips. They range painlessly as well, as do the shoulders. General Extremety ED: Yes tenderness Neuro oriented x3, CN's II-XII intact bilaterally, moves all extremities, no focal motor deficits and no sensory deficits noted [place] Coma Scale: document GCS findings Spontaneous Obeys Commands Oriented 15 Sensorium / Orientation: awake and alert Psych mental status grossly normal and thought process normal Skin Skin Narrative: Abrasion on the back, multiple contusions see above no other lesions or lacerations. Lesions: no lesions Rashes: no rashes MDM MDM MDM Narrative Medical decision making narrative: CT of the head was obtained in order to rule out intracranial injury, I reviewed the images and report which I agree with, negative for anything acute. This was done because the fact that she is on clopidogrel and her nausea may have been related to an intracranial injury or subdural hematoma. That does not appear to be the case here. In addition, obtained x-rays of the followin views left wrist on my interpretation negative for fracture 4 views right femur on my interpretation negative for fracture 3 views on my interpretation thoracic spine negative for fracture Patient is doing well, her nausea came back a little so we gave her a dose of Zofran, she was offered analgesics but declines, plan will be for discharge home she feels like she will be able to go home on her own safely, once on her feet she is able to walk. Upon getting the patient up to discharge her, she became very lightheaded. Nurses later down her blood pressure was in the 140s. They waited a little while and try to get her up again but when she sat up she felt near syncopal, her pulse was around 60 and her blood pressure was very low. They laid her back down and let me know so I ordered some blood test, IV fluids, and an EKG. Seems like a vagal phenomenon but it is not impossible to have an occult internal injury so checking blood counts. I reviewed the labs, They are reassuring. She is a little prerenal. After the IV fluids we got her up out of bed she had no symptoms or lightheadedness her vital signs are stable, and she is stable for discharge home. Ambulatory without difficulty or symptoms. Lab Data Attestation: I reviewed the patient's lab results. Labs: Laboratory Results - last 24 hr 11/02/23 01:34 WBC 9.9 RBC 3.69 L Hgb 10.3 L Hct 33.6 L MCV 91.1 MCH 27.9 MCHC 30.7 L RDW Std Deviation 49.5 H RDW Coeff of Erasmo 14.8 H Plt Count 212 MPV 9.9 Immature Gran % (Auto) 0.500 Neut % (Auto) 82.8 H Lymph % (Auto) 7.8 L [place] % (Auto) 7.6 Eos % (Auto) 0.7 Baso % (Auto) 0.6 Absolute Neuts (auto) 8.2 H Absolute Lymphs (auto) 0.77 L Nucleated RBC % 0 Sodium 141 Potassium 4.4 Chloride 110 H Carbon Dioxide 29.0 Anion Gap 2 L BUN 40 H Creatinine 1.31 H Estim Creat Clear Calc 44.78 Est GFR (MDRD) Af Amer 51 L Est GFR (MDRD) Non-Af 42 L BUN/Creatinine Ratio 30.5 H Glucose 183 H Calcium 9.2 Radiography Diagnostic Testing: Clinical Impression(s) from Imaging Studies Brain CT 11/01/23 22:28 IMPRESSION: No acute findings in the head/brain. Electronically Signed: Trell Salinas DO at 23:10 EDT , Femur X-Ray 11/01/23 23:00 IMPRESSION: 1. Prominent pretibial soft tissue swelling is nonspecific. 2. Edematous changes in the right thigh. 3. Right total knee arthroplasty. No acute fracture or dislocation. Electronically Signed: Trell Salinas DO at 23:41 EDT , Forearm X-Ray 11/01/23 23:00 IMPRESSION: 1. Soft tissue swelling in the forearm. 2. Degenerative changes at the elbow, hand, and wrist. No acute fracture or dislocation. Electronically Signed: Trell Salinas DO at 23:42 EDT , Thoracic Spine X-Ray 11/01/23 23:00 IMPRESSION: No compression fracture or traumatic subluxation. Degenerative changes. Electronically Signed: Trell Salinas DO at 23:43 EDT , Wrist X-Ray 11/01/23 23:00 IMPRESSION: Mild soft tissue swelling at the wrist. No acute fracture. Degenerative changes. Electronically Signed: Trell Salinas DO at 23:40 EDT , Rhythm Strip Rhythm Strip: Sinus Rhythm Rate: 75 Ectopy: None EKG Initial EKG: Attestation: I personally reviewed and interpreted this EKG as follows: Interpretation: Sinus Rhythm, No Acute Injury Pattern and LBBB Prior EKG tracings: available for review (05/2018 - ILBBB; otherwise unchanged) Discharge Plan Triage Chief Complaint: Fall ED Provider: Chetan Mauro Dx/Rx/DC Orders Clinical Impression: Contusion of multiple sites, Accidental fall on or from stairs or steps, Nausea Instructions: Bruises (Contusions) Prescriptions: No Action allopurinol 100 mg tablet 100 mg PO BID furosemide 40 mg tablet 40 mg PO DAILY levothyroxine 112 mcg tablet 112 mcg PO DAILY timolol maleate 1 DROP drops 1 drp EACH EYE BID metoprolol succinate 25 MG tablet extended release 24 hr 25 mg PO BID aspirin 81 mg Tablet,Delayed Release (Dr/Ec) 81 mg PO DAILY losartan 50 mg tablet 25 mg PO DAILY nystatin [Nyamyc] 100,000 unit/gram Powder 1 applic topical BID Qty: 0 0RF Protocol: *Topical Application Instructions APPLICATION INSTRUCTIONS: apply to groin potassium chloride 20 mEq tablet extended release 20 meq PO DAILY Qty: 1 0RF clopidogrel [Plavix] 75 mg tablet 75 mg PO DAILY Qty: 90 2RF Primary Care Provider: Fausto Noble Referrals: Fausto Noble PA [Primary Care Provider] - As Needed Print Language: Somali Disposition Disposition: Home, Self Care
--- NOTE | 2023-11-01 23:00 | RAD_ITS ---
EXAM: XR RIGHT FOREARM, 2 VIEWS CLINICAL INDICATION: injury pain. TECHNIQUE: Frontal and lateral views of the right forearm. COMPARISON: Wrist on the same date. FINDINGS: BONES/JOINTS: Degenerative changes at the elbow, hand, and wrist. No acute fracture. No dislocation. SOFT TISSUES: Soft tissue swelling in the forearm. RAD/Forearm 2 Views IMPRESSION: 1. Soft tissue swelling in the forearm. 2. Degenerative changes at the elbow, hand, and wrist. No acute fracture or dislocation. Electronically Signed: Trell Salinas DO at 23:42 EDT ,
--- NOTE | 2023-11-01 23:00 | RAD_ITS ---
EXAM: XR RIGHT FEMUR, 2 VIEWS CLINICAL INDICATION: injury pain. TECHNIQUE: Frontal and lateral views of the right femur. COMPARISON: No relevant prior studies available. FINDINGS: BONES/JOINTS: Right total knee arthroplasty. No acute fracture. No subluxation. Normal alignment. No sclerotic or destructive changes observed. SOFT TISSUES: Prominent pretibial soft tissue swelling is nonspecific. Edematous changes in the right thigh. Right iliac vascular stent. Otherwise, no radiopaque foreign body. RAD/Femur Min 2 Views IMPRESSION: 1. Prominent pretibial soft tissue swelling is nonspecific. 2. Edematous changes in the right thigh. 3. Right total knee arthroplasty. No acute fracture or dislocation. Electronically Signed: Trell Salinas DO at 23:41 EDT ,
--- NOTE | 2023-11-01 23:00 | RAD_ITS ---
EXAM: XR THORACIC SPINE, 2 VIEWS CLINICAL INDICATION: fall/injury pain. TECHNIQUE: Frontal and lateral views of the thoracic spine. COMPARISON: No relevant prior studies available. FINDINGS: VERTEBRAE: Multilevel endplate osteophytosis and sclerosis and multilevel facet arthrosis. No spondylolisthesis. Preservation of the normal thoracic kyphosis. No compression fracture or traumatic subluxation. DISC SPACES: No significant abnormality. Disc spaces are maintained. VASCULATURE: Vascular calcifications. OTHER FINDINGS: Status post cholecystectomy. RAD/Thoracic Spine 2 Views IMPRESSION: No compression fracture or traumatic subluxation. Degenerative changes. Electronically Signed: Trell Salinas DO at 23:43 EDT ,
--- NOTE | 2023-11-01 23:00 | RAD_ITS ---
EXAM: XR LEFT WRIST COMPLETE, 3 OR MORE VIEWS CLINICAL INDICATION: injury pain. TECHNIQUE: Frontal, lateral and oblique views of the left wrist. COMPARISON: Forearm on the same date. FINDINGS: BONES/JOINTS: Severe degenerative changes at the basal joint of the thumb. No acute fracture. No subluxation. Normal alignment. No sclerotic or destructive changes observed. SOFT TISSUES: Mild soft tissue swelling at the wrist. No radiopaque foreign body. RAD/Wrist min 3 Views IMPRESSION: Mild soft tissue swelling at the wrist. No acute fracture. Degenerative changes. Electronically Signed: Trell Salinas DO at 23:40 EDT ,
[2023-11-02] MEDS: Ondansetron ODT 4 MG Tablet 8 MG PO (00:12)
[2023-11-02 00:14] VITALS: BP 113/64; PULSE 74; RESP 16; TEMP 36.6; O2SAT 95
[2023-11-02 01:00] VITALS: BP 144/77; PULSE 67; RESP 16; O2SAT 98
--- NOTE | 2023-11-02 01:00 | ED.RN ---
This nurse into give pts D/C instructions and help get dressed. This nurse helping pt and pt bent down to pull pants up. Pt sat back down and stated I think I am going to pass out. Pt assisted back to bed and pts face pale.Pts BP 144/77 HR 66. Pt laid down in bed for awhile and states she felt better and wanted to try and get back up again. This nurse and MARGARITA Chávez. assisted to side of bed. Pt became pale BP 57/41. HR 60. Pt assisted x2 total dependant back into bed. BP 85/67 HR 60's. Pt still complaint of feeling dizzy, lightheaded. BP recheck 98/[address] Mauro updated.
--- NOTE | 2023-11-02 01:21 | EKG12_ITS ---
Test Reason : DYSRHYTHMIA Blood Pressure : / mmHG Vent. Rate : 073 BPM Atrial Rate : 073 BPM P-R Int : 140 ms QRS Dur : 148 ms QT Int : 428 ms P-R-T Axes : 058 -01 127 degrees QTc Int : 471 ms Normal sinus rhythm Left bundle branch block Abnormal ECG Confirmed by Maciel Hussein ([id number]), photo editor ORION AGARWAL ([id number]) on 11/02/2023 8:11:58 AM Referred By: Confirmed By:Maciel Hussein
[2023-11-02 01:39] VITALS: PULSE 72; RESP 18; O2SAT 95
[2023-11-02 01:40] VITALS: BP 137/67; PULSE 75; RESP 12; O2SAT 96
[2023-11-02 01:45] VITALS: BP 127/66; PULSE 73; RESP 18
[2023-11-02] MEDS: 0.9% Normal Saline (500mL Bag) 500 ML 999 ML IV (01:45)
[2023-11-02 01:48] LABS: Absolute Lymphocyte Count 0.77 X10^3/uL (0.83-4.51); Absolute Neutrophil Count 8.2 X10^3/uL (2.0-7.7); Basophil# 0.06 X10^3/uL; Basophil% 0.6 % (0-1); Eosinophil# 0.07 X10^3/uL; Eosinophils% 0.7 % (0-5); Hematocrit 33.6 % (37-47); Hemoglobin 10.3 g/dL (12.0-15.0); Lymphocyte # 0.77 X10^3/ul (0.83-4.51); Lymphocyte % 7.8 % (19-41); Mean Corp Hgb Conc 30.7 g/dL (32-36); Mean Corpuscular Hgb 27.9 pg (27.0-32.0); Mean Corpuscular Volume 91.1 fL (81-99); Mean Platelet Vol. 9.9 fl (6.2-12.0); Monocyte# 0.75 X10^3/uL; Monocyte% 7.6 % (0-10); NRBC Flagged by Analyzer 0 % (0-5); Neutrophil # 8.16 X10^3/uL (2.7-7.7); Neutrophil % 82.8 % (47-70); Platelet Count 212 K/mm3 (150-450); RBC Distribution Width CV 14.8 % (11.6-14.6); RBC Distribution Width SD 49.5 fl (35.1-43.9); Red Blood Count 3.69 M/mm3 (4.2-5.4); White Blood Count 9.9 K/mm3 (4.4-11.0)
[2023-11-02 02:03] LABS: Anion Gap 2 (5-15); BUN 40 mg/dL (7-18); BUN/Creat Ratio 30.5 RATIO (10-20); Calcium,Total 9.2 mg/dL (8.5-10.1); Chloride 110 mmol/L (98-107); Creatinine, Serum 1.31 mg/dL (0.55-1.02); EST Glomerular Filtration Rate 42 mL/min (>60); Est Glom Filt Rate - Afr Amer 51 mL/min (>60); Estimated Creatinine Clearance 44.78 ml/min; Glucose 183 mg/dL (74-106); Potassium 4.4 mmol/L (3.5-5.1); Sodium Level 141 mmol/L (136-145)
== END 2023-11-02 04:58 | disposition home or self-care (01) ==
PROVIDERS: Emergency Provider Emergency Medicine; PCP Physician Assistant; Visit Provider Emergency Medicine
DX: S20.224A Contusion of middle back wall of thorax, initial encounter (principal); R42 Dizziness and giddiness; R11.0 Nausea; W10.9XXA Fall (on) (from) unspecified stairs and steps, initial encounter; Y92.019 Unspecified place in single-family (private) house as the place of occurrence of the external cause; I10 Essential (primary) hypertension; Z79.899 Other long term (current) drug therapy; M10.9 Gout, unspecified; Z79.82 Long term (current) use of aspirin; Z96.653 Presence of artificial knee joint, bilateral; Z90.722 Acquired absence of ovaries, bilateral; Z90.49 Acquired absence of other specified parts of digestive tract; Z90.710 Acquired absence of both cervix and uterus; S50.11XA Contusion of right forearm, initial encounter; S60.212A Contusion of left wrist, initial encounter; S60.052A Contusion of left little finger without damage to nail, initial encounter; S70.11XA Contusion of right thigh, initial encounter
CPT/HCPCS: 70450; 72070; 73090; 73110; 73552; 80048; 85025; 93005; 96360; 99285; J7040; A4216

== ENCOUNTER → 2023-11-19 | Outpatient (CLI) | payer MEDICARE, OTHER, SELFPAY ==
--- NOTE | 2023-11-19 07:43 | AAVD_ITS ---
Reason For Study: S/P Iliac vein stents Inferior Vena Cava Proximal inferior vena cava measures 1.44 x 1.98 cm. in the cross-sectional axis. Proximal inferior vena cava measures 1.52 cm. in the longitudinal axis. Mid inferior vena cava measures 1.74 x 1.81 cm. in the cross-sectional axis. Mid inferior vena cava measures 1.55 cm. in the longitudinal axis. IVC distal, stent 1,1.08 x 1.37 x 1.18 cm. IVC distal, stent 2, 1.29 x 1.32 x 0.98 cm. The inferior vena cava has spontaneous, phasic flow throughout. Left Common Iliac Vein Left common iliac vein measures 1.07 x 1.20 cm. in the cross-sectional axis. Left common iliac vein measures 1.17 cm. in the longitudinal axis. The left common iliac vein has spontaneous, phasic flow throughout. Stent noted in the Lt CIV. Right Common Iliac Vein Right common iliac vein measures 1.16 x 1.12 cm. in the cross-sectional axis. Right common iliac vein measures 1.24 cm. in the longitudinal axis. The right common iliac vein has spontaneous, phasic flow throughout. Stent noted in the Rt CIV. Procedure Aorta IVC Iliac vasculature or bypass grafts [id number]. Exam performed in department. VL/Abd Aortic/IVC Duplex scan Interpretation Summary Patent IVC and bilateral iliac vein stents with normal venous flow pattern. Ordering Physician: Nehal Miller Referring Physician: Fausto Noble Performed By: Kelley Reardon RVT
--- NOTE | 2023-11-19 07:43 | VDLE_ITS ---
Reason For Study: Bilateral leg swelling RIGHT LEFT GSV is normal. GSV is normal. EIV visualized with color, appears patent. EIV visualized with color, appears patent. Normal phsic venous flow. Normal phsic venous flow. CFV is compressible, spontaneous, phasic, CFV is compressible, spontaneous, phasic, competent and demonstrates normal competent, and demonstrates normal augmentation. augmentation. FV is compressible, spontaneous, phasic, FV is compressible, spontaneous, phasic, competent and demonstrates normal competent and demonstrates normal augmentation. augmentation. POP V is compressible, spontaneous, phasic, POP V is compressible, spontaneous, phasic, competent and demonstrates normal competent and demonstrates normal augmentation. augmentation. T/P Trunk is compressible. T/P Trunk is compressible. PTV is compressible. PTV is compressible. RT PerV is compressible. LT PerV is compressible. Procedure This is a venous duplex using B-mode, color flow and spectral Doppler. Exam performed in department. Technically difficult study due to lymphedema. Calf veins visualized at ankle. A preliminary report was called and/or faxed to Angela SONG. VL/Venous Duplex US - Pérez Extrem Interpretation Summary Deep veins of the bilateral lower extremities are patent and compressible segme ntally. There is no evidence of bilateral lower extremity deep vein thrombosis. The bilateral great saphenous veins appear patent and compressible segmentally. Ordering Physician: Nehal Miller Referring Physician: Fausto Arvizu Performed By: Kelley Reardon RVT
== END | disposition home or self-care (01) ==
LOC: CVS 07:43
PROVIDERS: PCP Physician Assistant; Referring Provider Physician Assistant; Visit Provider Physician Assistant
DX: R60.0 Localized edema (principal); R09.89 Other specified symptoms and signs involving the circulatory and respiratory systems
CPT/HCPCS: 93970; 93978

== ENCOUNTER → 2024-05-25 | Outpatient (CLI) | payer MEDICARE, OTHER, SELFPAY ==
--- NOTE | 2024-05-25 08:50 | AAVD_ITS ---
Reason For Study: S/P Iliac vein stents Inferior Vena Cava Proximal inferior vena cava measures 1.42 x 1.90 cm. in the cross-sectional axis. Proximal inferior vena cava measures 1.59 cm. in the longitudinal axis. Mid inferior vena cava measures 1.69 x 2.09 cm. in the cross-sectional axis. Mid inferior vena cava measures 1.58 cm. in the longitudinal axis. IVC distal, stent 1, 0.97 x 0.95 x 1.05 cm. IVC distal, stent 2, 1.03 x 1.01 x 0.99 cm. The inferior vena cava has spontaneous, phasic flow throughout. Left Common Iliac Vein Left common iliac vein measures 0.81 x 0.83 cm. in the cross-sectional axis. Left common iliac vein measures 0.76 cm. in the longitudinal axis. The left common iliac vein has spontaneous, phasic flow throughout. Stent noted in the Lt CIV. Right Common Iliac Vein Right common iliac vein measures 1.30 x 1.31 cm. in the cross-sectional axis. Right common iliac vein measures 1.18 cm. in the longitudinal axis. The right common iliac vein has spontaneous, phasic flow throughout. Stent noted in the Rt CIV. Procedure Aorta IVC Iliac vasculature or bypass grafts [id number]. Exam performed in department. VL/Abd Aortic/IVC Duplex scan Interpretation Summary Patent IVC and bilateral iliac vein stents with normal venous flow pattern Ordering Physician: Nehal Miller Referring Physician: Fausto Noble Performed By: Kelley Reardon RVT
== END | disposition home or self-care (01) ==
LOC: CVS 08:50
PROVIDERS: PCP Physician Assistant; Referring Provider Physician Assistant; Visit Provider Physician Assistant
DX: Z48.812 Encounter for surgical aftercare following surgery on the circulatory system (principal)
CPT/HCPCS: 93978

== ENCOUNTER → 2025-05-09 | Outpatient (CLI) | payer MEDICARE, OTHER, SELFPAY ==
[2025-05-14 00:07] LABS: Calprotectin, Stool 74 ug/g (0-120)
== END | disposition home or self-care (01) ==
LOC: LABSPEC 08:11
PROVIDERS: PCP Physician Assistant; Referring Provider Student in an Organized Health Care Education/Training Program; Visit Provider Student in an Organized Health Care Education/Training Program
DX: R19.5 Other fecal abnormalities (principal); K58.9 Irritable bowel syndrome, unspecified
CPT/HCPCS: 83993; 87177; 87209; 87329; 87493